=== PATIENT | female | born 1955 | race Caucasian/White ===

== ENCOUNTER 2022-12-02 09:48 | Outpatient (OUT) | payer MEDICARE, OTHER, SELFPAY ==
--- NOTE | 2022-12-02 | VEIN_ITS ---
Patient: MARLON PASCAL Exam Date: 12/02/2022 : 1955 Gender:F Ordering : DR DANIEL LAMBERT M.D. Admission #: [id number] Family : Order #: [id number] CLICK HERE TO VIEW EXAM RADIOLOGY REPORT PROCEDURE: VC EXT VENOUS REFLUX SOHAN LMTD COMPARISON: None. INDICATIONS: Pain due to varicose veins of bilateral legs I83.813 TECHNIQUE: Duplex imaging of the lower extremity to assess the deep and superficial venous system for the presence of deep or superficial venous incompetence and to document the location and severity of disease. The study includes evaluation of the great saphenous vein (GSV), anterior accessory saphenous vein (AASV) and small saphenous vein (SSV). Patient scanned in reverse Trendelenburg and standing. FINDINGS: RIGHT LOWER EXTREMITY: Saphenofemoral Junction Reflux: Yes 7.2mm 0.9 sec GSV: Diam (mm) Reflux/ Time (sec) Proximal Thigh 7.9 Yes 3.7 Mid Thigh 5.3 Yes 1.2 Distal Thigh 5.7 Yes 3.7 Prox Calf 3.5 Yes 2.2 Mid Calf 3.7 Yes 0.3 Saphenopopliteal Junction Reflux: 5.6mm Yes 2.2 SSV: Proximal Calf 5.7 Yes 1.0 Mid Calf 2.1 Yes 0.2 AASV: Not present Thrombi: No acute or chronic thrombus. Compressibility: Normal. Flow: Mild deep venous reflux. Financial Aid Counselor: Distal medial lower leg 5.5 mm, 3.4s reflux. Prox medial lower leg 4.1 mm, 3.3s reflux. Mid lateral lower leg 5.2 mm, 2.4s reflux. Tech Note: Right SSV becomes decompressed after approximately 10 cm from SPJ. Incompetent varicose vein mid medial thigh measures 5.1 mm with 0.5s reflux. Varicose vein proximal posterior calf measures 5.3 mm, 3.9s reflux. Mid medial lower leg varicosity measures 6.0 mm, 1.2s reflux. Mid anterior thigh varicose vein measures 4.9 mm, 2.7s reflux. Large varicosity arising from composition floor layer proximal/lateral lower leg measures 7.3 mm, 2.5s reflux. Varicose vein mid lateral thigh measures 7.6 mm, 2.3s reflux. LEFT LOWER EXTREMITY: Saphenofemoral Junction Reflux: Yes 8.4 mm 1.1 sec GSV: Diam (mm) Reflux/Time (sec) Proximal Thigh 10.6 Yes 0.8 Mid Thigh 4.8 Yes 0.5 Distal Thigh 4.9 Yes 1.2 Prox Calf 3.8 Yes 2.2 Mid Calf 2.3 No Saphenopopliteal Junction Relux: 2.4 mm No SSV: Proximal Calf 3.2 No Mid Calf 2.8 Yes 0.2 AASV: Not present Thrombi: No acute or chronic thrombus. Compressibility: Normal. Flow: Mild deep venous reflux. Financial Aid Counselor: Prox medial lower leg 4.7 mm, 1.6s reflux. Tech Note: Incompetent varicose vein medial knee measures 4.2 mm with 3.7s reflux. Medial mid lower leg varicose vein measures 6.4 mm with 3.8s reflux. Prox posterior calf varicose vein measures 4.2 mm with 3.6s reflux. Varicose vein distal lateral thigh measures 8.0 mm with 3.7s reflux. CONCLUSION: 1. Severe right and moderate left great saphenous vein venous insufficiency with associated dilatation and saphenofemoral junction reflux 2. Mild right small saphenous vein venous insufficiency with minimal dilatation 3. Bilateral incompetent perforating veins measuring up to 5.5 mm in the right and 4.7 mm on the left 4. Bilateral incompetent varicose veins 5. Mild bilateral deep vein reflux Dictated by: Daniel Lambert MD on 12/02/2022 at 11:37 Approved by: Daniel Lambert MD on 12/02/2022 at 11:40
--- NOTE | 2022-12-02 | VEIN_ITS ---
Patient: MARLON PASCAL Exam Date: 12/02/2022 : 1955 Gender:F Ordering : DR DANIEL LAMBERT M.D. Admission #: [id number] Family : Order #: [id number] CLICK HERE TO VIEW EXAM RADIOLOGY REPORT PROCEDURE: [facility] - OFFICE VISIT INITIAL COMPARISON: None. PROGRESS NOTES: 67-year-old female who presents with a 20 year history of lower extremity pain swelling and varicose veins. The patient's symptoms have significantly progressed in the last 2 years. The patient now reports that the right side is significantly worse than the left. Patient complains muscle cramping aching heavy feeling in the legs. The patient had a single episode active hemorrhage from a superficial ruptured vein which required suturing in the emergency room. The patient has not had an additional episode in the past several years. The patient's symptoms are exacerbated by prolonged sitting and standing and are relieved by rest, leg elevation, compression stockings and over the counter oral analgesics. Patient's symptoms do dramatically affect her activities of daily living as she is unable to exercise due to the leg pain. Patient does elevate her legs for several hours per day. The patient denies any signs and symptoms to suggest arterial ischemia. The patient describes a family history significant for varicose veins in her mother. Heart disease and congestive heart failure in her father. Schizophrenia in her mother. . Past medical history significant for diabetes for which she is on nose and thick, fibromyalgia, hypertension, gastroparesis, morbid obesity, obstructive sleep apnea, depressive disorder, aortic stenosis, reactive airways disease and shortness of breath. Patient has never smoked. The patient occasionally drinks alcohol. No illicit drug use. Medication list is on a separate report. No history of deep venous thrombus or pulmonary embolus. See separate history and physical for medication list. No prior treatment for varicose or spider veins. The patient has worn compression stockings for many years. After review of nurse notes, history and physical exam I discussed at length the pathophysiology of venous hypertension and possible treatments, therapies and strategies available. We discussed at length the importance of elevating the lower extremities above the level of the heart, increased physical activity and compression stocking use. We discussed alternatives including continued use of bilateral thigh-high compression stockings, surgical alternatives including ligation and stripping and phlebectomy. We discussed intravenous laser ablation, micro foam chemical ablation and injection sclerotherapy at length. Risks benefits and alternatives were discussed Ultrasound venous reflux study performed same day was discussed at length with the patient. The report demonstrates severe right and moderate left great saphenous vein venous insufficiency with associated dilatation period mild right small saphenous vein venous insufficiency. Bilateral incompetent perforating veins measuring up to 5.5 mm. Bilateral incompetent varicose veins. Mild bilateral deep vein reflux PHYSICAL EXAM: The right leg demonstrates moderate varicose reticular and spider veins. Most significant along the lateral thigh, knee and ankle. There is mild to moderate hemosiderin staining lower leg and ankle. Subcutaneous edema. No active ulceration. The left leg demonstrates moderate varicose reticular and spider veins. Most significant along the lateral thigh knee and ankle. There is mild to moderate hemosiderin staining lower leg and ankle. Subcutaneous edema. No active ulceration. Both thighs, legs and feet were symmetrically warm to the touch. Good posterior tibial and dorsalis pedis pulses were present bilaterally. VEIN/[facility] EST Comprehensive IMPRESSION: 1. Severe right, moderate left great saphenous vein, mild right small saphenous vein venous insufficiency with dilatation and junction reflux 2. Moderate to severe bilateral lower extremity varicose veins 3. Mild lower extremity subcutaneous edema 4. No definite flow significant arterial disease 5. CEAP: C4a, Ep, Asp, Pr PLAN: 1. Endovenous laser ablation right great saphenous vein followed by left great saphenous vein with subsequent we evaluation of the incompetent perforating veins 2. Bilateral micro foam chemical ablation of incompetent varicose veins 3. Continued use of bilateral thigh-high 20-30 mm compression stockings 4. Elevated legs and increased physical activity for symptomatic relief Nurse notes, history and physical were reviewed and confirmed, see attached forms. The nurse was present throughout the physical exam and consultation Dictated by: Daniel Lambert MD on 12/02/2022 at 12:27 Approved by: Daniel Lambert MD on 12/02/2022 at 12:34
== END 2022-12-02 09:49 | disposition home or self-care (01) ==
LOC: VC 09:49
PROVIDERS: PCP Radiology Diagnostic Radiology; Visit Provider Radiology Diagnostic Radiology
DX: I83.813 Varicose veins of bilateral lower extremities with pain (principal)
CPT/HCPCS: 93970; G0463

== ENCOUNTER 2022-12-18 08:24 | Outpatient (OUT) | payer MEDICARE, OTHER, SELFPAY ==
--- NOTE | 2022-12-18 08:27 | VEIN_ITS ---
[address] [address] Patient Name: MARLON PASCAL MRN: [id number] date: 1955 Sex: F Assigned Patient Location: Current Patient Location: Accession/Order Number: [id number] Exam Date: 12/18/2022 08:30 Report Date: 12/18/2022 09:45 At the request of: AMY VU Procedure: VC Endovenous Ablation 1VeinRT EXAMINATION: VC Endovenous Ablation 1VeinRT HISTORY: I83.813 Pain due to varicose veins of bilateral legs The risks and benefits of the procedure had been previously discussed, and were rediscussed at length. Informed written consent was obtained. Choco Choi RN and Sonia Montenegro RDMS assisted. Time out procedure was performed. The right lower extremity was prepared and draped in the usual sterile fashion to allow knee flexion in the sterile field. Duplex ultrasound probe was draped in a sterile cover, sterile transmission gel was used. Venous mapping was performed with the areas of dilation and large tributaries marked. The total length was 36 cm from the entry upper calf to 3 cm below the saphenofemoral junction. The diameter of the greater saphenous vein ranged from 11 mm. A 30 gauge needle and 1% buffered lidocaine was used to anesthetize the entry site. A 4 mm incision was made with a scalpel and the saphenous vein was entered percutaneously under direct ultrasound guidance with a micropuncture set, a single stick was successful in gaining access. A micro-guide wire was inserted and the needle removed. A micro-set including a dilator was inserted over the microwire and the needle and dilator were removed. A guide wire was inserted through the micro-set and guided through the saphenous vein to the saphenofemoral junction. The dilator was removed and an introducer sheath was inserted over the wire until the end of the sheath entered the saphenofemoral junction. The dilator and wire were removed and the 600 micron fiber was introduced and placed and positioned so that it extended beyond the sheath and was 3 cm distal to the saphenofemoral femoral junction. Final position of the fiber was determined by ultrasound guidance and duplex imaging. Tumescent anesthetic was delivered by ultrasound guidance. 275 cc of fluid was delivered along the entire course of the saphenous vein. The solution consisted of 1000 cc of normal saline with 40 mL of 1% lidocaine and 20 mL of sodium bicarbonate. A final positioning check was made. The energy source was turned on by means of the foot pedal and the fiber and sheath were withdrawn. The total number of Joules delivered was 2244. The laser was active for twin A 80seconds under continuous pulse, average laser use of 8 J. Laser start time 9:27 AM, 12/18/2022. Laser stop time 9:34 AM, 12/18/2022. A duplex ultrasound revealed compressibility and flow at the saphenofemoral junction immediately after the procedure. Hemostasis at the access site was achieved. The skin incision of the saphenous vein was closed with a 4 x 4. A compression stocking was applied. Postop instructions were given. A follow up appointment was recommended and scheduled. The patient tolerated the procedure well. Electronically authenticated by: TI VALLEJO Date: 12/18/2022 09:45
[2022-12-18] MEDS: 0.9 % SODIUM CHLORIDE 500 ML, LIDOCAINE HCL 20 ML, SODIUM BICARBONATE 10 MEQ INJ (08:59)
[2022-12-18] MEDS: LIDOCAINE HCL 10 ML, SODIUM BICARBONATE 1 MEQ INJ (09:00)
== END 2022-12-18 08:25 | disposition home or self-care (01) ==
LOC: VC 08:24
PROVIDERS: PCP Radiology Diagnostic Radiology; Visit Provider Radiology Diagnostic Radiology
DX: I83.813 Varicose veins of bilateral lower extremities with pain (principal)
CPT/HCPCS: 36478

== ENCOUNTER 2022-12-23 09:26 | Outpatient (OUT) | payer MEDICARE, OTHER, SELFPAY ==
--- NOTE | 2022-12-23 09:27 | VEIN_ITS ---
Patient: MARLON PASCAL Exam Date: 12/23/2022 : 1955 Gender:F Ordering : DR DANIEL LAMBERT M.D. Admission #: [id number] Family : Order #: [id number] CLICK HERE TO VIEW EXAM RADIOLOGY REPORT PROCEDURE: VC EXT VENOUS RT LMTD COMPARISON: None. INDICATIONS: I80.01 Phlebitis of superficial veins of rt lower extremity TECHNIQUE: Lower extremity senior scale and Duplex Doppler evaluation of the deep venous system from the inguinal ligament through the calf veins. FINDINGS: REGION: Right lower extremity. THROMBI: Negative for DVT. Heat induced thrombus 1.9 cm from the SFJ. The thrombus extends from groin to proximal calf. COMPRESSIBILITY: Non-compressible segments. FLOW: Areas of no flow. CONCLUSION: Post ablation occlusion of the right great saphenous vein with heat induced thrombus 1.9 cm from the saphenofemoral junction Dictated by: Daniel Lambert MD on 12/23/2022 at 10:07 Approved by: Daniel Lambert MD on 12/23/2022 at 10:18
--- NOTE | 2022-12-23 09:27 | VEIN_ITS ---
Patient: MARLON PASCAL Exam Date: 12/23/2022 : 1955 Gender:F Ordering : DR DANIEL LAMBERT M.D. Admission #: [id number] Family : Order #: [id number] CLICK HERE TO VIEW EXAM RADIOLOGY REPORT PROCEDURE: [facility] EST LMTD VEIN CENTER - OFFICE VISIT FOLLOW UP COMPARISON: None. PROGRESS NOTES: The patient had no problems following intravenous laser ablation of the right great saphenous vein. The patient did not require oral analgesics. The patient did wear her compression stocking. The patient has followed our recommendations to walk 20-30 minutes once or twice per day since the procedure. Physical exam demonstrates thrombosed right great saphenous vein which can be easily palpated. Some mild bruising identified along the distal medial right thigh. No area of erythema or warmth to suggest cellulitis or thrombophlebitis. No active ulceration Review of the ultrasound performed the same day demonstrates occlusive thrombus extending throughout the treated right great saphenous vein with heat induced thrombus 1.9 cm in the saphenofemoral junction. The patient expressed a desire to proceed with treatment of incompetent left great saphenous vein. VEIN/[facility] Facility EST LMTD IMPRESSION: 1. Successful ablation of the right great saphenous vein. 2. Persistent incompetent left great saphenous vein. PLAN: Intravenous laser ablation left great saphenous vein Nurse notes, history and physical were reviewed and confirmed, see attached forms. The nurse was present throughout the physical exam and consultation Dictated by: Daniel Lambert MD on 12/23/2022 at 10:25 Approved by: Daniel Lambert MD on 12/23/2022 at 10:33
== END 2022-12-23 09:27 | disposition home or self-care (01) ==
LOC: VC 09:26
PROVIDERS: PCP Radiology Diagnostic Radiology; Visit Provider Radiology Diagnostic Radiology
DX: I80.01 Phlebitis and thrombophlebitis of superficial vessels of right lower extremity (principal)
CPT/HCPCS: 93971; G0463

== ENCOUNTER 2023-01-22 07:50 | Outpatient (OUT) | payer MEDICARE, OTHER, SELFPAY ==
--- NOTE | 2023-01-22 | VEIN_ITS ---
[address] [address] Patient Name: MARLON PASCAL MRN: [id number] date: 1955 Sex: F Assigned Patient Location: Current Patient Location: Accession/Order Number: [id number] Exam Date: 01/22/2023 07:56 Report Date: 01/22/2023 10:16 At the request of: AMY VU Procedure: VC Endovenous Ablation 1VeinLT EXAMINATION: VC Endovenous Ablation 1Vein left great saphenous vein HISTORY: Pain due to varicose veins of bilateral legs I83.813 COMPARISON: No relevant comparison available. TECHNIQUE: The risks and benefits of the procedure had been previously discussed, and were rediscussed at length. Informed written consent was obtained. Tonia and Choco Choi assisted. Time out procedure was performed. The left lower extremity was prepared and draped in the usual sterile fashion to allow knee flexion in the sterile field. Duplex ultrasound probe was draped in a sterile cover, sterile transmission gel was used. Venous mapping was performed with the areas of dilation and large tributaries marked. The total length was 37 cm from the entry upper calf to 3 cm below the saphenofemoral junction. The diameter of the greater saphenous vein ranged from 3-11 mm. A 30 gauge needle and 1% buffered lidocaine was used to anesthetize the entry site. A 4 mm incision was made with a scalpel and the saphenous vein was entered percutaneously under direct ultrasound guidance with a micropuncture set, a single stick was successful in gaining access. A micro-guide wire was inserted and the needle removed. A micro-set including a dilator was inserted over the microwire and the needle and dilator were removed. A 0.018 guide wire was inserted through the micro-set and threaded through the saphenous vein to the saphenofemoral junction. The dilator was removed and an introducer sheath was inserted over the wire until the end of the sheath entered the saphenofemoral junction. The dilator and wire were removed and the 600 micron fiber was introduced and placed and positioned so that it extended beyond the sheath and was 3 cm peripheral to the saphenofemoral femoral junction. Final position of the fiber was determined by ultrasound guidance and duplex imaging. Tumescent anesthetic was delivered by ultrasound guidance. 300 cc of fluid was delivered along the entire course of the saphenous vein. The solution consisted of 1000 cc of normal saline with 40 mL of 1% lidocaine and 20 mL of sodium bicarbonate. A final positioning check was made. The energy source was turned on by means of the foot pedal and the fiber and sheath were withdrawn. The total number of Joules delivered was 1771. The laser was active for 221 seconds under continuous pulse, average laser use of 8 J. Laser start time 8:39 am 01/22/23 . Laser stop time 8:44 am 01/22/23 . A duplex ultrasound revealed compressibility and flow at the saphenofemoral junction immediately after the procedure. Hemostasis at the access site was achieved. The skin incision of the saphenous vein was closed with a 4 x 4. A compression stocking was applied. Postop instructions were given. A follow up appointment was recommended and scheduled. The patient tolerated the procedure well and was discharged in good condition . VEIN/VC Endovenous Ablation 1VeinLT IMPRESSION: Technically successful endovenous laser ablation of the left great saphenous vein Electronically authenticated by: AMY VU Date: 01/22/2023 10:16
[2023-01-22] MEDS: 0.9 % SODIUM CHLORIDE 500 ML, LIDOCAINE HCL 20 ML, SODIUM BICARBONATE 10 MEQ INJ (08:08)
[2023-01-22] MEDS: LIDOCAINE HCL 10 ML, SODIUM BICARBONATE 1 MEQ INJ (08:10)
== END 2023-01-22 07:51 | disposition home or self-care (01) ==
LOC: VC 07:50
PROVIDERS: PCP Radiology Diagnostic Radiology; Visit Provider Radiology Diagnostic Radiology
DX: I83.813 Varicose veins of bilateral lower extremities with pain (principal)
CPT/HCPCS: 36478

== ENCOUNTER 2023-01-27 13:17 | Outpatient (OUT) | payer MEDICARE, OTHER, SELFPAY ==
--- NOTE | 2023-01-27 13:33 | VEIN_ITS ---
Patient: MARLON PASCAL Exam Date: 01/27/2023 : 1955 Gender:F Ordering : DR AMY VU M.D. Admission #: [id number] Family : Order #: [id number] CLICK HERE TO VIEW EXAM CORRECTION Corrected on: 01/27/2023; RADIOLOGY REPORT PROCEDURE: [facility] EST LMTD VEIN CENTER - OFFICE VISIT FOLLOW UP COMPARISON: [facility] EST TD, 12/23/2022. PROGRESS NOTES: The patient reports improvement in leg symptoms. There has been interval reduction in varicosities. The patient has followed our recommendations to walk 20-30 minutes once or twice per day since the procedure. Physical exam demonstrates decrease in varicosities of the leg. Persistent varicosities are identified along the legs bilaterally. Review of the ultrasound performed the same day demonstrates occlusive thrombus extending throughout the treated vein(s), see separate report, consistent with a successful ablation. No thrombus extending into or beyond the saphenofemoral junction. The patient expressed a desire to proceed with treatment of remaining incompetent branch saphenous varicosities. The patient was informed that treatment was a process and would require several procedures/sessions. VEIN/[facility] EST LMTD IMPRESSION: 1. Successful ablation of the left great saphenous vein(s). 2. Persistent dilated and incompetent branch saphenous veins and lower extremity symptoms. PLAN: 1. Microfoam chemical ablation of incompetent branch saphenous varicosities within the right leg. Nurse notes, history and physical were reviewed and confirmed, see attached forms. The nurse was present throughout the physical exam and consultation Dictated by: Edin Garrido M.D. on 01/27/2023 at 14:37 Approved by: Edin Garrido M.D. on 01/27/2023 at 14:41
--- NOTE | 2023-01-27 13:33 | VEIN_ITS ---
Patient: MARLON PASCAL Exam Date: 01/27/2023 : 1955 Gender:F Ordering : DR AMY VU M.D. Admission #: [id number] Family : Order #: [id number] CLICK HERE TO VIEW EXAM CORRECTION Corrected on: 01/27/2023; RADIOLOGY REPORT PROCEDURE: VC EXT VENOUS LT LIMITED COMPARISON: None. INDICATIONS: I80.02 Phlebitis of superficial veins of lt lower extremity TECHNIQUE: Lower extremity senior scale and Duplex Doppler evaluation of the deep venous system from the inguinal ligament through the calf veins. FINDINGS: REGION: Left lower extremity. THROMBI: Negative for DVT. Heat induced thrombus in left GSV 2.3 cm from SFJ and extends to proximal calf. COMPRESSIBILITY: Non-compressible segments. FLOW: Areas of no flow. 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 Mid lateral lower leg perf measures 4.5mm with 4.6s reflux. CONCLUSION: 1. Successful post ablation occlusion of left great saphenous vein. Dictated by: Edin Garrido M.D. on 01/27/2023 at 14:41 Approved by: Edin Garrido M.D. on 01/27/2023 at 14:42
== END 2023-01-27 13:18 | disposition home or self-care (01) ==
LOC: VC 13:31
PROVIDERS: PCP Radiology Diagnostic Radiology; Visit Provider Radiology Diagnostic Radiology
DX: I80.02 Phlebitis and thrombophlebitis of superficial vessels of left lower extremity (principal)
CPT/HCPCS: 93971; G0463

== ENCOUNTER 2023-02-17 08:32 | Outpatient (OUT) | payer MEDICARE, OTHER, SELFPAY ==
--- NOTE | 2023-02-17 | VEIN_ITS ---
[address] [address] Patient Name: MARLON PASCAL MRN: [id number] date: 1955 Sex: F Assigned Patient Location: Current Patient Location: Accession/Order Number: [id number] Exam Date: 02/17/2023 08:50 Report Date: 02/17/2023 10:54 At the request of: AMY VU Procedure: VC INJ Foam Sclerosant WUS ASSEMBLER AIRCRAFT POWER PLANT PROCEDURE: VC INJ Foam Sclerosant WUS ASSEMBLER AIRCRAFT POWER PLANT COMPARISON: None. HISTORY: Pain due to varicose veins of bilateral legs I83.813 Pre-operative Diagnosis: CEAP class C4a venous insufficiency with pain, tenderness, edema and incompetent right great saphenous vein and dilated incompetent varicose veins, chronic venous insufficiency right leg secondary to venous incompetence Post-operative Diagnosis: CEAP class C4a venous insufficiency with pain, tenderness, edema and incompetent right great saphenous vein and dilated incompetent varicose veins, chronic venous insufficiency right leg secondary to venous incompetence Procedure Performed: 1. Ultrasound-guided microfoam chemical ablation with Varithenaregistered 2. Intraoperative ultrasound guidance Anesthesia: None Indications for Procedure: 67-year-old female who presents with a 20 year history of lower extremity pain and swelling and muscle cramping traumatically affecting her activities of daily living. The patient failed conservative medical therapy including medical compression stockings, exercise and analgesics. Prior procedures include . Multiple incompetent varicosities of the right leg. Duplex scan showed reflux and enlarged diameters up to 8 mm. The patient underwent informed consent including management options where the complications of infection, bleeding, pain, and skin injury were discussed. Particular attention was spent discussing thrombus extension and deep vein thrombosis as well as the possibility of pulmonary embolus and treatment with oral or injectable blood thinners. Procedure: The patient walked to the procedure room. All applicable staff donned appropriate apparel. A procedure timeout was performed to confirm correct patient, correct extremity, correct procedure, and correct room set-up including presence of all applicable supplies, devices, and drugs. A duplex ultrasound, performed by myself confirmed the location and incompetence of branch saphenous varicosities and their course was marked on the skin together with the dilated tributaries. The extent of treatment of the vein and the associated varicosities was determined through ultrasound mapping. The skin was prepped and then punctured with a butterfly needle and advanced under ultrasound guidance. The Varithenaregistered canister was activated and the canister was primed and purged as required in the instructions for use. Varithenaregistered was drawn into a sterile syringe. The following injections were made: 6 cc injected into a 5 mm varicose vein distal medial right ankle 9 cc injected into a 8 mm varicose vein lateral proximal right lower leg Varithenaregistered was slowly administered at 0.5-1.0 cc/second with close observation by ultrasound of its course in the vessels. Total volume utilized was 18 cc . Following administration of Varithenaregistered the leg was elevated and the patient was asked to repeatedly dorsiflex the ankle to limit flow of Varithenaregistered into perforating veins. Once appropriate spasm had been confirmed in the treated veins, the vascular catheter was removed from the leg and light pressure was applied over the puncture site for hemostasis. The common femoral and deep superficial veins were then evaluated for flow and compressibility prior to dressing placement. The lower extremity was kept elevated at 45 degrees above the horizontal and cording material was applied over the saphenous segments and tributaries to allow for eccentric compression over the target vessels including the targeted saphenous vein(s). A multilayer dressing was applied consisting of foam pads, coban and thigh-high 20-30 mm Hg compression elastic support hose were placed on the patient. The leg was lowered only after compression had been applied and the patient was immediately ambulatory. The patient ambulated 10 minutes under supervision and was without apparent concerns at time of release. Post-care instructions include advising patient to keep post-treatment bandages in place and dry for 48 hours, avoid extended periods of inactivity, avoid heavy exercise for one week, wear compression stockings on the treated leg continuously for two weeks, to walk daily for 10 minutes over the next month. The patient was instructed to take an anti-inflammatory medicine as needed and to follow up for color duplex scan of the Saphenous veins, the treated branch saphenous varicosities, the adjacent deep veins, and additional treatment within 7 days. PERSONNEL: Choco Choi RN Electronically authenticated by: AMY VU Date: 02/17/2023 10:54
== END 2023-02-17 08:33 | disposition home or self-care (01) ==
LOC: VC 08:32
PROVIDERS: PCP Radiology Diagnostic Radiology; Visit Provider Radiology Diagnostic Radiology
DX: I83.813 Varicose veins of bilateral lower extremities with pain (principal)
CPT/HCPCS: 36466

== ENCOUNTER 2023-02-24 07:49 | Outpatient (OUT) | payer MEDICARE, OTHER, SELFPAY ==
--- NOTE | 2023-02-24 07:52 | VEIN_ITS ---
Patient: MARLON PASCAL Exam Date: 02/24/2023 : 1955 Gender:F Ordering : DR DANIEL LAMBERT M.D. Admission #: [id number] Family : Order #: [id number] CLICK HERE TO VIEW EXAM RADIOLOGY REPORT PROCEDURE: FACILITY EST LMTD VEIN CENTER - OFFICE VISIT FOLLOW UP COMPARISON: FACILITY EST LMTD, 01/27/2023. FACILITY EST LMTD, 12/23/2022. PROGRESS NOTES: The patient reports no significant visual was following micro foam chemical ablation of the right leg. The patient did not require oral analgesics. The patient has worn her compression stockings. The patient has followed our recommendations to walk 20-30 minutes once or twice per day since the procedure. Physical exam demonstrates multiple thrombosed varicose veins. Multiple patent incompetent varicose veins remain Review of the ultrasound performed the same day demonstrates occlusive thrombus extending throughout the treated right leg incompetent varicose veins with residual incompetent patent varicose veins observed. The patient expressed a desire to proceed with treatment of incompetent left leg varicose veins. VEIN/ Facility EST LMTD IMPRESSION: 1. Successful ablation of right leg incompetent varicose veins 2. Persistent bilateral leg incompetent varicose veins. PLAN: Micro foam chemical ablation of left leg incompetent varicose veins Nurse notes, history and physical were reviewed and confirmed, see attached forms. The nurse was present throughout the physical exam and consultation Dictated by: Daniel Lambert MD on 02/24/2023 at 09:06 Approved by: Daniel Lambert MD on 02/24/2023 at 09:08
--- NOTE | 2023-02-24 07:52 | VEIN_ITS ---
Patient: MARLON PASCAL Exam Date: 02/24/2023 : 1955 Gender:F Ordering : DR DANIEL LAMBERT M.D. Admission #: [id number] Family : Order #: [id number] CLICK HERE TO VIEW EXAM RADIOLOGY REPORT PROCEDURE: VC EXT VENOUS RT LMTD COMPARISON: VC EXT VENOUS RT LMTD, 12/23/2022. INDICATIONS: I80.01 Phlebitis of superficial veins of rt lower extremity TECHNIQUE: Lower extremity senior scale and Duplex Doppler evaluation of the deep venous system from the inguinal ligament through the calf veins. FINDINGS: REGION: Right lower extremity. THROMBI: Negative for DVT. Varithena induced thrombus visualized at prox/lat calf and dist/med calf. COMPRESSIBILITY: Non-compressible segments corresponding to thrombus. FLOW: Absent flow corresponding to thrombus OTHER: Multiple varicose veins remain. CONCLUSION: Post ablation occlusion of treated varicose veins with multiple residual incompetent patent varicose veins remaining Dictated by: Daniel Lambert MD on 02/24/2023 at 08:05 Approved by: Daniel Lambert MD on 02/24/2023 at 08:52
== END 2023-02-24 07:50 | disposition home or self-care (01) ==
LOC: VC 07:49
PROVIDERS: PCP Radiology Diagnostic Radiology; Visit Provider Radiology Diagnostic Radiology
DX: I80.01 Phlebitis and thrombophlebitis of superficial vessels of right lower extremity (principal)
CPT/HCPCS: 93971; G0463

== ENCOUNTER 2023-03-10 08:54 | Outpatient (OUT) | payer MEDICARE, OTHER, SELFPAY ==
--- NOTE | 2023-03-10 08:58 | VEIN_ITS ---
[address] [address] Patient Name: MARLON PASCAL MRN: [id number] date: 1955 Sex: F Assigned Patient Location: Current Patient Location: Accession/Order Number: [id number] Exam Date: 03/10/2023 09:02 Report Date: 03/10/2023 10:31 At the request of: AMY VU Procedure: VC INJ Foam Sclerosant WUS CHOP SAW OPERATOR PROCEDURE: VC INJ Foam Sclerosant WUS CHOP SAW OPERATOR COMPARISON: None. HISTORY: Pain due to varicose veins of bilateral legs I83.813 Pre-operative Diagnosis: CEAP class C4a venous insufficiency with pain, tenderness, edema and incompetent greater saphenous vein and incompetent varicose veins, chronic venous insufficiency left leg secondary to venous incompetence Post-operative Diagnosis: CEAP class C4a venous insufficiency with pain, tenderness, edema and incompetent greater saphenous vein and incompetent varicose veins, chronic venous insufficiency left leg secondary to venous incompetence Procedure Performed: 1. Ultrasound-guided microfoam chemical ablation with Varithenaregistered 2. Intraoperative ultrasound guidance Anesthesia: None Indications for Procedure: 67-year-old female who presents with a 20 year history of lower extremity pain and swelling and varicose veins. The patient failed conservative medical therapy including medical compression stockings, exercise and analgesics. Prior procedures include . Multiple incompetent varicosities of the left leg. Duplex scan showed reflux and enlarged diameters up to 7 mm. The patient underwent informed consent including management options where the complications of infection, bleeding, pain, and skin injury were discussed. Particular attention was spent discussing thrombus extension and deep vein thrombosis as well as the possibility of pulmonary embolus and treatment with oral or injectable blood thinners. Procedure: The patient walked to the procedure room. All applicable staff donned appropriate apparel. A procedure timeout was performed to confirm correct patient, correct extremity, correct procedure, and correct room set-up including presence of all applicable supplies, devices, and drugs. A duplex ultrasound, performed by myself confirmed the location and incompetence of branch saphenous varicosities and their course was marked on the skin together with the dilated tributaries. The extent of treatment of the vein and the associated varicosities was determined through ultrasound mapping. The skin was prepped and then punctured with a butterfly needle and advanced under ultrasound guidance. The Varithenaregistered canister was activated and the canister was primed and purged as required in the instructions for use. Varithenaregistered was drawn into a sterile syringe. Following injections were made: 7 cc injected into a 6 mm varicose vein distal medial left lower leg just above the ankle 8 cc injected into a 7 mm varicose vein proximal medial left lower leg Varithenaregistered was slowly administered at 0.5-1.0 cc/second with close observation by ultrasound of its course in the vessels. Total volume utilized was: . Following administration of Varithenaregistered the leg was elevated and the patient was asked to repeatedly dorsiflex the ankle to limit flow of Varithenaregistered into perforating veins. Once appropriate spasm had been confirmed in the treated veins, the vascular catheter was removed from the leg and light pressure was applied over the puncture site for hemostasis. The common femoral and deep superficial veins were then evaluated for flow and compressibility prior to dressing placement. The lower extremity was kept elevated at 45 degrees above the horizontal and cording material was applied over the saphenous segments and tributaries to allow for eccentric compression over the target vessels including the targeted saphenous vein(s). A multilayer dressing was applied consisting of foam pads, coban and thigh-high 20-30 mm Hg compression elastic support hose were placed on the patient. The leg was lowered only after compression had been applied and the patient was immediately ambulatory. The patient ambulated 10 minutes under supervision and was without apparent concerns at time of release. Post-care instructions include advising patient to keep post-treatment bandages in place and dry for 48 hours, avoid extended periods of inactivity, avoid heavy exercise for one week, wear compression stockings on the treated leg continuously for two weeks, to walk daily for 10 minutes over the next month. The patient was instructed to take an anti-inflammatory medicine as needed and to follow up for color duplex scan of the Saphenous veins, the treated branch saphenous varicosities, the adjacent deep veins, and additional treatment within 7 days. PERSONNEL: Choco Choi RN Electronically authenticated by: AMY VU Date: 03/10/2023 10:31
== END 2023-03-10 08:55 | disposition home or self-care (01) ==
LOC: VC 08:54
PROVIDERS: PCP Radiology Diagnostic Radiology; Visit Provider Radiology Diagnostic Radiology
DX: I83.813 Varicose veins of bilateral lower extremities with pain (principal)
CPT/HCPCS: 36466

== ENCOUNTER 2023-03-17 07:25 | Outpatient (OUT) | payer MEDICARE, OTHER, SELFPAY ==
--- NOTE | 2023-03-17 | VEIN_ITS ---
Patient: MARLON PASCAL Exam Date: 03/17/2023 : 1955 Gender:F Ordering : DR DANIEL LAMBERT M.D. Admission #: [id number] Family : Order #: [id number] CLICK HERE TO VIEW EXAM RADIOLOGY REPORT PROCEDURE: FACILITY EST LMTD VEIN CENTER - OFFICE VISIT FOLLOW UP COMPARISON: FACILITY EST LMTD, 02/24/2023. FACILITY EST LMTD, 01/27/2023. PROGRESS NOTES: The patient reports no significant problems following micro foam chemical ablation of left leg incompetent varicose veins. The patient did not require oral analgesics. The patient has worn her compression stockings for the patient's exercise to the best of her ability. Physical exam demonstrates multiple thrombosed varicose veins. Large incompetent varicose veins are observed along the patient's lateral thigh knee and lower leg. No areas of erythema or warmth to suggest cellulitis or thrombophlebitis. No active ulceration. Review of the ultrasound performed the same day demonstrates occlusive thrombus extending throughout the treated left leg incompetent varicose veins. A 2.6 cm segment of deep vein thrombus is identified in a single left posterior tibial vein. This was discussed with the patient and no treatment was recommended. We will follow-up with this at her next appointment. Residual bilateral incompetent varicose veins are observed. The patient expressed a desire to proceed with treatment of right leg incompetent varicose veins with micro foam chemical ablation. VEIN/ Facility EST LMTD IMPRESSION: 1. Successful ablation of incompetent left leg varicose veins 2. Persistent bilateral incompetent varicose veins. PLAN: Micro foam chemical ablation right leg incompetent varicose veins Nurse notes, history and physical were reviewed and confirmed, see attached forms. The nurse was present throughout the physical exam and consultation Dictated by: Daniel Lambert MD on 03/17/2023 at 08:02 Approved by: Daniel Lambert MD on 03/17/2023 at 08:04
--- NOTE | 2023-03-17 | VEIN_ITS ---
Patient: MARLON PASCAL Exam Date: 03/17/2023 : 1955 Gender:F Ordering : DR DANIEL LAMBERT M.D. Admission #: [id number] Family : Order #: [id number] CLICK HERE TO VIEW EXAM RADIOLOGY REPORT PROCEDURE: VC EXT VENOUS LT LIMITED COMPARISON: VC EXT VENOUS LT LIMITED, 01/27/2023. INDICATIONS: Phlebitis of superficial veins of lt lower extremity I80.02 TECHNIQUE: Lower extremity senior scale and Duplex Doppler evaluation of the deep venous system from the inguinal ligament through the calf veins. FINDINGS: REGION: Left lower extremity. THROMBI: Positive for DVT. Chemically induced thrombus in varicose veins medial left leg. Thrombus extends from rehabilitation attendant into PTV in a 2.6 cm segment. COMPRESSIBILITY: Non-compressible segments corresponding to throb. FLOW: Absent flow corresponding thrombus OTHER: Patent varicose vein lateral thigh remains 5.9 mm. CONCLUSION: 1. Post ablation occlusion of treated varicose veins 2. 2.6 cm segment deep vein thrombus in a single posterior tibial vein in the region of a rehabilitation attendant vein Dictated by: Daniel Lambert MD on 03/17/2023 at 07:49 Approved by: Daniel Lambert MD on 03/17/2023 at 07:51
== END 2023-03-17 07:26 | disposition home or self-care (01) ==
LOC: VC 07:25
PROVIDERS: PCP Radiology Diagnostic Radiology; Visit Provider Radiology Diagnostic Radiology
DX: I80.02 Phlebitis and thrombophlebitis of superficial vessels of left lower extremity (principal)
CPT/HCPCS: 93971; G0463

== ENCOUNTER 2023-03-31 08:54 | Outpatient (OUT) | payer MEDICARE, OTHER, SELFPAY ==
--- NOTE | 2023-03-31 | VEIN_ITS ---
[address] [address] Patient Name: MARLON PASCAL MRN: [id number] date: 1955 Sex: F Assigned Patient Location: Current Patient Location: Accession/Order Number: [id number] Exam Date: 03/31/2023 09:00 Report Date: 03/31/2023 10:11 At the request of: AMY VU Procedure: VC INJ Foam Sclerosant WUS PETROLEUM ENGINEER PROCEDURE: VC INJ Foam Sclerosant WUS PETROLEUM ENGINEER HISTORY: Painful Varicose Veins 183.813 Pre-operative Diagnosis: CEAP class C4 a venous insufficiency with pain, tenderness, edema and incompetent branch saphenous vein(s), chronic venous insufficiency right leg secondary to venous incompetence Post-operative Diagnosis: CEAP class C4 a venous insufficiency with pain, tenderness, edema and incompetent branch saphenous vein(s), chronic venous insufficiency right leg secondary to venous incompetence Procedure Performed: 1. Ultrasound-guided microfoam chemical ablation with Varithenaregistered 2. Intraoperative ultrasound guidance Physician: Edin Garrido M.D. Anesthesia: None Indications for Procedure: 68 year old female. Symptoms including dilated bulging veins, lower extremity pain and swelling for many years despite conservative medical therapy including medical compression stockings, exercise and analgesics. Prior procedures include endovenous laser ablation and microfoam chemical ablation. Multiple incompetent varicosities of the right leg. Duplex scan showed reflux and enlarged diameters up to 8 mm. The patient underwent informed consent including management options where the complications of infection, bleeding, pain, and skin injury were discussed. Particular attention was spent discussing thrombus extension and deep vein thrombosis as well as the possibility of pulmonary embolus and treatment with oral or injectable blood thinners. Procedure: The patient walked to the procedure room. All applicable staff donned appropriate apparel. A procedure timeout was performed to confirm correct patient, correct extremity, correct procedure, and correct room set-up including presence of all applicable supplies, devices, and drugs. A duplex ultrasound, performed by myself confirmed the location and incompetence of branch saphenous varicosities and their course was marked on the skin together with the dilated tributaries. The extent of treatment of the vein and the associated varicosities was determined through ultrasound mapping. The skin was prepped and then punctured with a butterfly needle and advanced under ultrasound guidance. The Varithenaregistered canister was activated and the canister was primed and purged as required in the instructions for use. Varithenaregistered was drawn into a sterile syringe. Varithenaregistered was slowly administered at 0.5-1.0 cc/second with close observation by ultrasound of its course in the vessels. Total volume utilized was: 15 mL (7 mL injury 4 mm varicosity of the mid anterior lateral lower right leg; 8 mL into an 8 mm varicosity of the distal lateral upper right leg). Following administration of Varithenaregistered the leg was elevated and the patient was asked to repeatedly dorsiflex the ankle to limit flow of Varithenaregistered into perforating veins. Once appropriate spasm had been confirmed in the treated veins, the vascular catheter was removed from the leg and light pressure was applied over the puncture site for hemostasis. The common femoral and deep superficial veins were then evaluated for flow and compressibility prior to dressing placement. The lower extremity was kept elevated at 45 degrees above the horizontal and cording material was applied over the saphenous segments and tributaries to allow for eccentric compression over the target vessels including the targeted saphenous vein(s). A multilayer dressing was applied consisting of foam pads, coban and thigh-high 20-30 mm Hg compression elastic support hose were placed on the patient. The leg was lowered only after compression had been applied and the patient was immediately ambulatory. The patient ambulated 10 minutes under supervision and was without apparent concerns at time of release. Post-care instructions include advising patient to keep post-treatment bandages in place and dry for 48 hours, avoid extended periods of inactivity, avoid heavy exercise for one week, wear compression stockings on the treated leg continuously for two weeks, to walk daily for 10 minutes over the next month. The patient was instructed to take an anti-inflammatory medicine as needed and to follow up for color duplex scan of the Saphenous veins, the treated branch saphenous varicosities, the adjacent deep veins, and additional treatment within 7 days. PERSONNEL: Choco Choi RN Electronically authenticated by: EDIN GARRIDO Date: 03/31/2023 10:11
== END 2023-03-31 08:55 | disposition home or self-care (01) ==
LOC: VC 08:54
PROVIDERS: PCP Radiology Diagnostic Radiology; Visit Provider Radiology Diagnostic Radiology
DX: I83.813 Varicose veins of bilateral lower extremities with pain (principal)
CPT/HCPCS: 36466

== ENCOUNTER 2023-04-07 07:58 | Outpatient (OUT) | payer MEDICARE, OTHER, SELFPAY ==
--- NOTE | 2023-04-07 07:59 | VEIN_ITS ---
Patient: MARLON PASCAL Exam Date: 04/07/2023 : 1955 Gender:F Ordering : DR AMY VU M.D. Admission #: [id number] Family : Order #: [id number] CLICK HERE TO VIEW EXAM RADIOLOGY REPORT PROCEDURE: VC FACILITY EST LMTD VEIN CENTER - OFFICE VISIT FOLLOW UP COMPARISON: VC EXT VENOUS SOHAN LIMITED, 04/07/2023. VC FACILITY EST LMTD, 03/17/2023. PROGRESS NOTES: The patient reports improvement in leg symptoms. There has been interval reduction in varicosities. The patient has followed our recommendations to walk 20-30 minutes once or twice per day since the procedure. Physical exam demonstrates decrease in varicosities of the leg. Persistent varicosities are identified along the left leg. Review of the ultrasound performed the same day demonstrates occlusive thrombus extending throughout the treated vein(s), see separate report, consistent with a successful ablation. No thrombus extending into or beyond the saphenofemoral junction. No remaining treatable varicosities within right leg. The patient expressed a desire to proceed with treatment of remaining incompetent branch saphenous varicosities. The patient was informed that treatment was a process and would require 1-2 procedures/sessions. VEIN/ Facility EST LMTD IMPRESSION: 1. Successful ablation of the treated right leg branch saphenous vein(s). 2. No remaining treatable branch saphenous varicosities within right leg. 3. Persistent left lower extremity incompetent branch saphenous veins and lower extremity symptoms. PLAN: Microfoam chemical ablation of left leg incompetent branch saphenous varicosities. Nurse notes, history and physical were reviewed and confirmed, see attached forms. The nurse was present throughout the physical exam and consultation Dictated by: Edin Garrido M.D. on 04/07/2023 at 09:39 Approved by: Edin Garrido M.D. on 04/07/2023 at 09:42
--- NOTE | 2023-04-07 08:00 | VEIN_ITS ---
Patient: MARLON PASCAL Exam Date: 04/07/2023 : 1955 Gender:F Ordering : DR AMY VU M.D. Admission #: [id number] Family : Order #: [id number] CLICK HERE TO VIEW EXAM RADIOLOGY REPORT PROCEDURE: VC EXT VENOUS SOHAN LIMITED COMPARISON: None. INDICATIONS: I80.03 Phlebitis of superficial veins of sohan lower extremity TECHNIQUE: Lower extremity senior scale and Duplex Doppler evaluation of the deep venous system from the inguinal ligament through the calf veins. FINDINGS: REGION: Right lower extremity. THROMBI: Acute and chronic appearing thrombi. Varithena induced thrombus at mid/lateral thigh and prox/lat calf. COMPRESSIBILITY: Non-compressible segments. FLOW: Areas on no flow. OTHER: No patent varicose veins remain. REGION: Left lower extremity. THROMBI: Negative for DVT. COMPRESSIBILITY: Normal compressibility. FLOW: Normal waveform and antegrade flow between 5 and 20 cm/s. OTHER: Negative. CONCLUSION: 1. Successful post ablation occlusion of treated right lower extremity branch saphenous varicosities. 2. Clearing of previously seen small thrombus within left lower extremity deep calf vein. Dictated by: Edin Garrido M.D. on 04/07/2023 at 09:38 Approved by: Edin Garrido M.D. on 04/07/2023 at 09:39
== END 2023-04-07 07:59 | disposition home or self-care (01) ==
LOC: VC 07:59
PROVIDERS: PCP Radiology Diagnostic Radiology; Visit Provider Radiology Diagnostic Radiology
DX: I80.03 Phlebitis and thrombophlebitis of superficial vessels of lower extremities, bilateral (principal)
CPT/HCPCS: 93970; G0463

== ENCOUNTER 2023-04-16 07:55 | Outpatient (OUT) | payer MEDICARE, OTHER, SELFPAY ==
--- NOTE | 2023-04-16 07:58 | VEIN_ITS ---
[address] [address] Patient Name: MARLON PASCAL MRN: [id number] date: 1955 Sex: F Assigned Patient Location: Current Patient Location: Accession/Order Number: [id number] Exam Date: 04/16/2023 08:00 Report Date: 04/16/2023 09:19 At the request of: AMY UV Procedure: VC INJ Foam Sclerosant WUS ICT CUSTOMER SUPPORT OFFICER PROCEDURE: VC INJ Foam Sclerosant WUS ICT CUSTOMER SUPPORT OFFICER HISTORY: Pain due to varicose veins of bilateral legs I83.813 Pre-operative Diagnosis: CEAP class C4 venous insufficiency with pain, tenderness, edema and incompetent branch saphenous vein(s), chronic venous insufficiency left leg secondary to venous incompetence Post-operative Diagnosis: CEAP class C4 venous insufficiency with pain, tenderness, edema and incompetent branch saphenous vein(s), chronic venous insufficiency left leg secondary to venous incompetence Procedure Performed: 1. Ultrasound-guided microfoam chemical ablation with Varithenaregistered 2. Intraoperative ultrasound guidance Physician: Edin Garrido M.D. Anesthesia: None Indications for Procedure: 68 year old female. Symptoms including dilated bulging veins, swelling, leg pain for many years despite conservative medical therapy including medical compression stockings, exercise and analgesics. Prior procedures include endovenous laser ablation and microfoam chemical ablation. Multiple incompetent varicosities of the left leg. Duplex scan showed reflux and enlarged diameters up to 8 mm. The patient underwent informed consent including management options where the complications of infection, bleeding, pain, and skin injury were discussed. Particular attention was spent discussing thrombus extension and deep vein thrombosis as well as the possibility of pulmonary embolus and treatment with oral or injectable blood thinners. Procedure: The patient walked to the procedure room. All applicable staff donned appropriate apparel. A procedure timeout was performed to confirm correct patient, correct extremity, correct procedure, and correct room set-up including presence of all applicable supplies, devices, and drugs. A duplex ultrasound, performed by myself confirmed the location and incompetence of branch saphenous varicosities and their course was marked on the skin together with the dilated tributaries. The extent of treatment of the vein and the associated varicosities was determined through ultrasound mapping. The skin was prepped and then punctured with a butterfly needle and advanced under ultrasound guidance. The Varithenaregistered canister was activated and the canister was primed and purged as required in the instructions for use. Varithenaregistered was drawn into a sterile syringe. Varithenaregistered was slowly administered at 0.5-1.0 cc/second with close observation by ultrasound of its course in the vessels. Total volume utilized was: 15 mL (6 mL into a 5 mm varicosity of the mid anterior lower left leg; 9 mL into an 8 mm varicosity lateral to left knee). Following administration of Varithenaregistered the leg was elevated and the patient was asked to repeatedly dorsiflex the ankle to limit flow of Varithenaregistered into perforating veins. Once appropriate spasm had been confirmed in the treated veins, the vascular catheter was removed from the leg and light pressure was applied over the puncture site for hemostasis. The common femoral and deep superficial veins were then evaluated for flow and compressibility prior to dressing placement. The lower extremity was kept elevated at 45 degrees above the horizontal and cording material was applied over the saphenous segments and tributaries to allow for eccentric compression over the target vessels including the targeted saphenous vein(s). A multilayer dressing was applied consisting of foam pads, coban and thigh-high 20-30 mm Hg compression elastic support hose were placed on the patient. The leg was lowered only after compression had been applied and the patient was immediately ambulatory. The patient ambulated 10 minutes under supervision and was without apparent concerns at time of release. Post-care instructions include advising patient to keep post-treatment bandages in place and dry for 48 hours, avoid extended periods of inactivity, avoid heavy exercise for one week, wear compression stockings on the treated leg continuously for two weeks, to walk daily for 10 minutes over the next month. The patient was instructed to take an anti-inflammatory medicine as needed and to follow up for color duplex scan of the Saphenous veins, the treated branch saphenous varicosities, the adjacent deep veins, and additional treatment within 7 days. PERSONNEL: Choco Choi RN Electronically authenticated by: EDIN GARRIDO Date: 04/16/2023 09:19
== END 2023-04-16 07:56 | disposition home or self-care (01) ==
LOC: VC 07:56
PROVIDERS: PCP Radiology Diagnostic Radiology; Visit Provider Radiology Diagnostic Radiology
DX: I83.813 Varicose veins of bilateral lower extremities with pain (principal)
CPT/HCPCS: 36466

== ENCOUNTER 2023-04-21 12:51 | Outpatient (OUT) | payer MEDICARE, OTHER, SELFPAY ==
--- NOTE | 2023-04-21 12:52 | VEIN_ITS ---
Patient Name: MARLON PASCAL MR#: [id number] : 1955 Exam Date: 04/21/2023 Ordering Doctor: DR AMY VU M.D. RADIOLOGY REPORT PROCEDURE: [facility] - OFFICE VISIT FOLLOW UP [facility] PROGRESS NOTES: The patient reports improvement in leg symptoms. There has been interval reduction in varicosities. The patient has followed our recommendations to walk 20-30 minutes once or twice per day since the procedure. Physical exam demonstrates decrease in varicosities of the leg. Persistent superficial varicosities are identified along the left leg. Review of the ultrasound performed the same day demonstrates occlusive thrombus extending throughout the treated vein(s), see separate report, consistent with a successful ablation. No thrombus extending into or beyond the saphenofemoral junction. The patient expressed a desire to proceed with treatment of incompetent branch saphenous varicosities of left leg. The patient was informed that treatment was a process and would require 1-2 procedures/sessions. VEIN/[facility] EST LMTD IMPRESSION: 1. Successful ablation of the treated left leg branch saphenous vein(s). 2. Persistent incompetent varicose veins and mild lower extremity symptoms. PLAN: Endovenous laser ablation of left leg incompetent branch saphenous varicosities. Nurse notes, history and physical were reviewed and confirmed, see attached forms. The nurse was present throughout the physical exam and consultation Dictated by: Edin Garrido M.D. on 04/21/2023 at 14:52 Approved by: Edin Garrido M.D. on 04/21/2023 at 14:53
--- NOTE | 2023-04-21 12:52 | VEIN_ITS ---
Patient Name: MARLON PASCAL MR#: [id number] : 1955 Exam Date: 04/21/2023 Ordering Doctor: DR AMY VU M.D. RADIOLOGY REPORT PROCEDURE: VC EXT VENOUS LT LIMITED COMPARISON: VC EXT VENOUS LT LIMITED, 03/17/2023. INDICATIONS: Phlebitis of superficial veins of lt lower extremity I80.02 TECHNIQUE: Lower extremity senior scale and Duplex Doppler evaluation of the deep venous system from the inguinal ligament through the calf veins. FINDINGS: REGION: Left lower extremity. THROMBI: Negative for DVT. Varithena induced thrombus visualized at mid/ant calf and lateral knee. COMPRESSIBILITY: Non-compressible segments corresponding to thrombus FLOW: Areas of no flow. OTHER: Patent varicose veins remain measuring up to 4.0mm with 1.5s reflux at mid/med thigh. CONCLUSION: 1. Successful post ablation occlusion of treated left leg incompetent branch saphenous varicosities. Dictated by: Edin Garrido M.D. on 04/21/2023 at 14:51 Approved by: Edin Garrido M.D. on 04/21/2023 at 14:52
== END 2023-04-21 12:52 | disposition home or self-care (01) ==
LOC: VC 12:51
PROVIDERS: PCP Radiology Diagnostic Radiology; Visit Provider Radiology Diagnostic Radiology
DX: I80.02 Phlebitis and thrombophlebitis of superficial vessels of left lower extremity (principal)
CPT/HCPCS: 93971; G0463

== ENCOUNTER 2023-04-28 10:57 | Outpatient (OUT) | payer MEDICARE, OTHER, SELFPAY ==
--- NOTE | 2023-04-28 10:58 | VEIN_ITS ---
[address] [address] Patient Name: MARLON PASCAL MRN: [id number] date: 1955 Sex: F Assigned Patient Location: Current Patient Location: Accession/Order Number: [id number] Exam Date: 04/28/2023 11:00 Report Date: 04/28/2023 12:16 At the request of: AMY UV Procedure: VC INJ Foam Sclerosant WUS LUNCH TRUCK OPERATOR PROCEDURE: VC INJ Foam Sclerosant WUS LUNCH TRUCK OPERATOR HISTORY: Pain due to varicose veins of bilateral legs I83.813 Pre-operative Diagnosis: CEAP class C4a venous insufficiency with pain, tenderness, edema and incompetent branch saphenous vein(s), chronic venous insufficiency right leg secondary to venous incompetence Post-operative Diagnosis: CEAP class C4a venous insufficiency with pain, tenderness, edema and incompetent branch saphenous vein(s), chronic venous insufficiency right leg secondary to venous incompetence Procedure Performed: 1. Ultrasound-guided microfoam chemical ablation with Varithenaregistered 2. Intraoperative ultrasound guidance Physician: Edin Garrido M.D. Anesthesia: None Indications for Procedure: 68 year old female. Symptoms including lower extremity pain, swelling, dilated bulging veins for many years despite conservative medical therapy including medical compression stockings, exercise and analgesics. Prior procedures include endovenous laser ablation and microfoam chemical ablation. Multiple incompetent varicosities of the right and left leg. Duplex scan showed reflux and enlarged diameters up to 5 mm. The patient underwent informed consent including management options where the complications of infection, bleeding, pain, and skin injury were discussed. Particular attention was spent discussing thrombus extension and deep vein thrombosis as well as the possibility of pulmonary embolus and treatment with oral or injectable blood thinners. Procedure: The patient walked to the procedure room. All applicable staff donned appropriate apparel. A procedure timeout was performed to confirm correct patient, correct extremity, correct procedure, and correct room set-up including presence of all applicable supplies, devices, and drugs. A duplex ultrasound, performed by myself confirmed the location and incompetence of branch saphenous varicosities and their course was marked on the skin together with the dilated tributaries. The extent of treatment of the vein and the associated varicosities was determined through ultrasound mapping. The skin was prepped and then punctured with a butterfly needle and advanced under ultrasound guidance. The Varithenaregistered canister was activated and the canister was primed and purged as required in the instructions for use. Varithenaregistered was drawn into a sterile syringe. Varithenaregistered was slowly administered at 0.5-1.0 cc/second with close observation by ultrasound of its course in the vessels. Total volume utilized was: 15 mL (5 mL into a 5 mm varicosity of the distal medial lower right leg; 5 mL into a 5 mm varicosity within posterior mid calf of right leg; 5 mL into a 4 mm varicosity of the proximal medial lower left leg). Following administration of Varithenaregistered the leg was elevated and the patient was asked to repeatedly dorsiflex the ankle to limit flow of Varithenaregistered into perforating veins. Once appropriate spasm had been confirmed in the treated veins, the vascular catheter was removed from the leg and light pressure was applied over the puncture site for hemostasis. The common femoral and deep superficial veins were then evaluated for flow and compressibility prior to dressing placement. The lower extremity was kept elevated at 45 degrees above the horizontal and cording material was applied over the saphenous segments and tributaries to allow for eccentric compression over the target vessels including the targeted saphenous vein(s). A multilayer dressing was applied consisting of foam pads, coban and thigh-high 20-30 mm Hg compression elastic support hose were placed on the patient. The leg was lowered only after compression had been applied and the patient was immediately ambulatory. The patient ambulated 10 minutes under supervision and was without apparent concerns at time of release. Post-care instructions include advising patient to keep post-treatment bandages in place and dry for 48 hours, avoid extended periods of inactivity, avoid heavy exercise for one week, wear compression stockings on the treated leg continuously for two weeks, to walk daily for 10 minutes over the next month. The patient was instructed to take an anti-inflammatory medicine as needed and to follow up for color duplex scan of the Saphenous veins, the treated branch saphenous varicosities, the adjacent deep veins, and additional treatment within 7 days. PERSONNEL: Sharon Watson RN Electronically authenticated by: EDIN GARRIDO Date: 04/28/2023 12:16
== END 2023-04-28 10:58 | disposition home or self-care (01) ==
LOC: VC 10:57
PROVIDERS: PCP Radiology Diagnostic Radiology; Visit Provider Radiology Diagnostic Radiology
DX: I83.813 Varicose veins of bilateral lower extremities with pain (principal)
CPT/HCPCS: 36466

== ENCOUNTER 2023-05-07 14:19 | Outpatient (OUT) | payer MEDICARE, OTHER, SELFPAY ==
--- NOTE | 2023-05-07 14:20 | VEIN_ITS ---
Patient Name: MARLON PASCLA MR#: [id number] : 1955 Exam Date: 05/07/2023 Ordering Doctor: DR AMY VU M.D. RADIOLOGY REPORT PROCEDURE: [facility] EST [facility] VEIN C[facility] - OFFICE VISIT FOLLOW UP COMPARISON: [facility], 04/21/2023. PROGRESS NOTES: The patient reports improvement in leg symptoms. There has been interval reduction in varicosities. The patient has followed our recommendations to walk 20-30 minutes once or twice per day since the procedure. Physical exam demonstrates decrease in varicosities of the leg. Persistent varicosities are identified along the left leg. Review of the ultrasound performed the same day demonstrates occlusive thrombus extending throughout the treated vein(s), see separate report, consistent with a successful ablation. No thrombus extending into or beyond the saphenofemoral junction. The patient expressed a desire to proceed with treatment of remaining incompetent branch saphenous varicosities. The patient was informed that treatment was a process and would require approximately 1 more microfoam ablation procedures[facility]sessions[facility]: 1. Successful ablation of the left leg treated branch saphenous vein(s). 2. Persistent varicose veins and lower extremity symptoms. PLAN: 1. Microfoam chemical ablation of left leg dilated branch saphenous varicosities. Nurse notes, history and physical were reviewed and confirmed, see attached forms. The nurse was present throughout the physical exam and consultation Dictated by: Edin Garrido M.D. on 05/07/2023 at 15:06 Approved by: Edin Garrido M.D. on 05/07/2023 at 15:08
--- NOTE | 2023-05-07 14:20 | VEIN_ITS ---
Patient Name: MARLON PASCAL MR#: [id number] : 1955 Exam Date: 05/07/2023 Ordering Doctor: DR AMY VU M.D. RADIOLOGY REPORT PROCEDURE: VC EXT VENOUS LT LIMITED COMPARISON: VC EXT VENOUS LT LIMITED, 04/21/2023. INDICATIONS: I80.02 Phlebitis of superficial veins of lt lower extremity TECHNIQUE: Lower extremity senior scale and Duplex Doppler evaluation of the deep venous system from the inguinal ligament through the calf veins. FINDINGS: REGION: Left lower extremity. THROMBI: Negative for DVT. Varithena induced thrombus visualized mid/med calf, prox/med calf, and mid/post calf. COMPRESSIBILITY: Non-compressible segments corresponding to thrombus FLOW: Areas of no flow corresponding to thrombus OTHER: Patent varicose veins remain measuring 5.4mm with 0.6s reflux. CONCLUSION: 1. Successful post ablation occlusion of left leg treated branch saphenous varicosities. Dictated by: Edin Garrido M.D. on 05/07/2023 at 15:04 Approved by: Edin Garrido M.D. on 05/07/2023 at 15:06
== END 2023-05-07 14:20 | disposition home or self-care (01) ==
LOC: VC 14:20
PROVIDERS: PCP Radiology Diagnostic Radiology; Visit Provider Radiology Diagnostic Radiology
DX: I80.02 Phlebitis and thrombophlebitis of superficial vessels of left lower extremity (principal)
CPT/HCPCS: 93971; G0463

== ENCOUNTER 2023-05-19 13:52 | Outpatient (OUT) | payer MEDICARE, OTHER, SELFPAY ==
--- NOTE | 2023-05-19 13:55 | VEIN_ITS ---
[address] [address] Patient Name: MARLON PASCAL MRN: [id number] date: 1955 Sex: F Assigned Patient Location: Current Patient Location: Accession/Order Number: [id number] Exam Date: 05/19/2023 14:15 Report Date: 05/19/2023 15:10 At the request of: AMY VU Procedure: VC INJ Foam Sclerosant WUS TILE GRINDER PROCEDURE: VC INJ Foam Sclerosant WUS TILE GRINDER COMPARISON: None. HISTORY: Pain due to varicose veins of bilateral legs I83.813 Pre-operative Diagnosis: CEAP class C4a venous insufficiency with pain, tenderness, edema and incompetent left saphenous and varicose vein(s), chronic venous insufficiency left leg secondary to venous incompetence Post-operative Diagnosis: CEAP class C4a venous insufficiency with pain, tenderness, edema and incompetent left saphenous and varicose vein(s), chronic venous insufficiency left leg secondary to venous incompetence Procedure Performed: 1. Ultrasound-guided microfoam chemical ablation with Varithenaregistered 2. Intraoperative ultrasound guidance Anesthesia: None Indications for Procedure: 68 year female who presents with a long history of lower extremity pain and swelling with extensive hemosiderin staining. The patient failed conservative medical therapy including medical compression stockings, exercise and analgesics. Prior procedures include endovenous laser ablation and microfoam chemical ablation. Multiple incompetent varicosities of the left leg. Duplex scan showed reflux and enlarged diameters up to 6 mm. The patient underwent informed consent including management options where the complications of infection, bleeding, pain, and skin injury were discussed. Particular attention was spent discussing thrombus extension and deep vein thrombosis as well as the possibility of pulmonary embolus and treatment with oral or injectable blood thinners. Procedure: The patient walked to the procedure room. All applicable staff donned appropriate apparel. A procedure timeout was performed to confirm correct patient, correct extremity, correct procedure, and correct room set-up including presence of all applicable supplies, devices, and drugs. A duplex ultrasound, performed by myself confirmed the location and incompetence of branch saphenous varicosities and their course was marked on the skin together with the dilated tributaries. The extent of treatment of the vein and the associated varicosities was determined through ultrasound mapping. The skin was prepped and then punctured with a butterfly needle and advanced under ultrasound guidance. The Varithenaregistered canister was activated and the canister was primed and purged as required in the instructions for use. Varithenaregistered was drawn into a sterile syringe. Following injection; 5 cc injected into a 5 mm varicose vein left distal medial lower leg. 5 cc injected into a 5 mm varicose vein distal medial left lower leg 5 cc injected into a 6 mm varicose vein and distal anterior left thigh Varithenaregistered was slowly administered at 0.5-1.0 cc/second with close observation by ultrasound of its course in the vessels. Total volume utilized was: 15 cc. Following administration of Varithenaregistered the leg was elevated and the patient was asked to repeatedly dorsiflex the ankle to limit flow of Varithenaregistered into perforating veins. Once appropriate spasm had been confirmed in the treated veins, the vascular catheter was removed from the leg and light pressure was applied over the puncture site for hemostasis. The common femoral and deep superficial veins were then evaluated for flow and compressibility prior to dressing placement. The lower extremity was kept elevated at 45 degrees above the horizontal and cording material was applied over the saphenous segments and tributaries to allow for eccentric compression over the target vessels including the targeted saphenous vein(s). A multilayer dressing was applied consisting of foam pads, coban and thigh-high 20-30 mm Hg compression elastic support hose were placed on the patient. The leg was lowered only after compression had been applied and the patient was immediately ambulatory. The patient ambulated 10 minutes under supervision and was without apparent concerns at time of release. Post-care instructions include advising patient to keep post-treatment bandages in place and dry for 48 hours, avoid extended periods of inactivity, avoid heavy exercise for one week, wear compression stockings on the treated leg continuously for two weeks, to walk daily for 10 minutes over the next month. The patient was instructed to take an anti-inflammatory medicine as needed and to follow up for color duplex scan of the Saphenous veins, the treated branch saphenous varicosities, the adjacent deep veins, and additional treatment within 7 days. PERSONNEL: Choco Choi RN Electronically authenticated by: AMY VU Date: 05/19/2023 15:10
== END 2023-05-19 13:53 | disposition home or self-care (01) ==
LOC: VC 13:52
PROVIDERS: PCP Radiology Diagnostic Radiology; Visit Provider Radiology Diagnostic Radiology
DX: I83.813 Varicose veins of bilateral lower extremities with pain (principal)
CPT/HCPCS: 36466

== ENCOUNTER 2023-05-26 08:54 | Outpatient (OUT) | payer MEDICARE, OTHER, SELFPAY ==
--- NOTE | 2023-05-26 08:55 | VEIN_ITS ---
Patient Name: MARLON PASCAL MR#: [id number] : 1955 Exam Date: 05/26/2023 Ordering Doctor: DR DANIEL LAMBERT M.D. RADIOLOGY REPORT PROCEDURE: [facility] EST [facility] - OFFICE VISIT FOLLOW UP COMPARISON: [facility] EST [facility], 05/07/2023. [facility] EST [facility], 04/21/2023. PROGRESS NOTES: The patient reports no significant problems following micro foam chemical ablation of left leg incompetent varicose veins. The patient did not require oral analgesics. The patient has worn her compression stockings. The patient has followed our recommendations to walk 20-30 minutes once or twice per day since the procedure. Physical exam demonstrates multiple thrombosed varicose veins in both legs. Marked reduction in swelling and skin thickening is observed. No erythema or warmth to suggest cellulitis or thrombophlebitis. No active ulceration Review of the ultrasound performed the same day demonstrates occlusive thrombus extending throughout the treated left leg varicose veins. No deep vein thrombus. Residual varicose veins are observed. The patient expressed a desire to proceed with treatment of incompetent left leg varicose veins with micro foam chemical ablation. VEIN/ Facility EST LMTD IMPRESSION: 1. Successful ablation of treated left leg varicose veins 2. Persistent incompetent left leg varicose veins. PLAN: Micro foam chemical ablation left leg incompetent varicose veins Nurse notes, history and physical were reviewed and confirmed, see attached forms. The nurse was present throughout the physical exam and consultation Dictated by: Daniel Lambert MD on 05/26/2023 at 10:44 Approved by: Daniel Lambert MD on 05/26/2023 at 10:46
--- NOTE | 2023-05-26 08:56 | VEIN_ITS ---
Patient Name: MARLON PASCAL MR#: [id number] : 1955 Exam Date: 05/26/2023 Ordering Doctor: DR DANIEL LAMBERT M.D. RADIOLOGY REPORT PROCEDURE: VC EXT VENOUS LT LIMITED COMPARISON: VC EXT VENOUS LT LIMITED, 05/07/2023. VC EXT VENOUS LT LIMITED, 04/21/2023. INDICATIONS: I80.02 Phlebitis of superficial veins of lt lower extremity TECHNIQUE: Lower extremity senior scale and Duplex Doppler evaluation of the deep venous system from the inguinal ligament through the calf veins. FINDINGS: REGION: Left lower extremity. THROMBI: Negative for DVT. Varithena induced thrombus visualized at mid/ant calf and mid/med calf. COMPRESSIBILITY: Non-compressible segments corresponding to thrombus FLOW: Areas of absent flow corresponding to thrombus OTHER: Multiple varicose veins remain. Largest vein measures 4.3mm with 1.4s reflux. CONCLUSION: Post ablation occlusion of treated left leg varicose veins with residual incompetent patent varicose veins measuring up to 4.3 mm Dictated by: Daniel Lambert MD on 05/26/2023 at 09:29 Approved by: Daniel Lambert MD on 05/26/2023 at 09:29
== END 2023-05-26 08:55 | disposition home or self-care (01) ==
LOC: VC 08:54
PROVIDERS: PCP Radiology Diagnostic Radiology; Visit Provider Radiology Diagnostic Radiology
DX: I80.02 Phlebitis and thrombophlebitis of superficial vessels of left lower extremity (principal)
CPT/HCPCS: 93971; G0463

== ENCOUNTER 2023-05-28 07:23 | Outpatient (OUT) | payer MEDICARE, OTHER, SELFPAY ==
--- NOTE | 2023-05-28 07:25 | VEIN_ITS ---
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 HISTORY: Pain due to varicose veins of bilateral legs I83.813 Pre-operative Diagnosis: CEAP class C4a venous insufficiency with pain, tenderness, edema and incompetent left saphenous and varicose vein(s), chronic venous insufficiency left leg secondary to venous incompetence Post-operative Diagnosis: CEAP class C4a venous insufficiency with pain, tenderness, edema and incompetent left saphenous and varicose vein(s), chronic venous insufficiency left leg secondary to venous incompetence Procedure Performed: 1. Ultrasound-guided microfoam chemical ablation with Varithenaregistered 2. Intraoperative ultrasound guidance Anesthesia: None Indications for Procedure: 68-year-old female who presents with a long history of lower extremity pain and swelling resulting in skin thickening and edema and hemosiderin staining. The patient failed conservative medical therapy including medical compression stockings, exercise and analgesics. Prior procedures include endovenous laser ablation and Microfoam chemical ablation. Multiple incompetent varicosities of the left leg. Duplex scan showed reflux and enlarged diameters up to 5 mm. The patient underwent informed consent including management options where the complications of infection, bleeding, pain, and skin injury were discussed. Particular attention was spent discussing thrombus extension and deep vein thrombosis as well as the possibility of pulmonary embolus and treatment with oral or injectable blood thinners. Procedure: The patient walked to the procedure room. All applicable staff donned appropriate apparel. A procedure timeout was performed to confirm correct patient, correct extremity, correct procedure, and correct room set-up including presence of all applicable supplies, devices, and drugs. A duplex ultrasound, performed by myself confirmed the location and incompetence of branch saphenous varicosities and their course was marked on the skin together with the dilated tributaries. The extent of treatment of the vein and the associated varicosities was determined through ultrasound mapping. The skin was prepped and then punctured with a butterfly needle and advanced under ultrasound guidance. The Varithenaregistered canister was activated and the canister was primed and purged as required in the instructions for use. Varithenaregistered was drawn into a sterile syringe. The following injections were made: 3 cc injected into a 4 mm varicose vein left mid lateral lower leg 6 cc injected into a 4 mm varicose vein proximal medial left lower leg 5 cc injected into a 5 mm varicose vein medial distal left thigh Varithenaregistered was slowly administered at 0.5-1.0 cc/second with close observation by ultrasound of its course in the vessels. Total volume utilized was: 14 cc. Following administration of Varithenaregistered the leg was elevated and the patient was asked to repeatedly dorsiflex the ankle to limit flow of Varithenaregistered into perforating veins. Once appropriate spasm had been confirmed in the treated veins, the vascular catheter was removed from the leg and light pressure was applied over the puncture site for hemostasis. The common femoral and deep superficial veins were then evaluated for flow and compressibility prior to dressing placement. The lower extremity was kept elevated at 45 degrees above the horizontal and cording material was applied over the saphenous segments and tributaries to allow for eccentric compression over the target vessels including the targeted saphenous vein(s). A multilayer dressing was applied consisting of foam pads, coban and thigh-high 20-30 mm Hg compression elastic support hose were placed on the patient. The leg was lowered only after compression had been applied and the patient was immediately ambulatory. The patient ambulated 10 minutes under supervision and was without apparent concerns at time of release. Post-care instructions include advising patient to keep post-treatment bandages in place and dry for 48 hours, avoid extended periods of inactivity, avoid heavy exercise for one week, wear compression stockings on the treated leg continuously for two weeks, to walk daily for 10 minutes over the next month. The patient was instructed to take an anti-inflammatory medicine as needed and to follow up for color duplex scan of the Saphenous veins, the treated branch saphenous varicosities, the adjacent deep veins, and additional treatment within 7 days. PERSONNEL: Choco Choi RN Electronically authenticated by: AMY VU Date: 05/28/2023 09:05
--- OUTSIDE RECORDS SUMMARY | 2023-05-28 07:33 | XMS_ITS | CCD ---
Author Name Unknown Address [address] [place] [address] Organization [facility] Care Team Providers Care Manager Mba Name Role Phone SUMI CLAYTON Unavailable Unavailab SHIVA Rios Unavailable Unavailab FARIDA Owen Admitting Unavailable FARIDA WILLAMS Attending Unavailable MISC, DOCTOR Primary Care Unavailable FARIDA WILLAMS Consulting Unavailable AMY VU V Admitting Unavailable AMY VU V Attending Unavailable AMY VU V Consulting Unavailable EDIN GARRIDO Consulting Unavailable Anabel Kyle Unavailable Elizabeth Warner Unavailable SHIVA TURNER Primary Care Physician NONE, XXXX Referring Unavailable Nathan, Mohamed FLaurita Admitting Unavailable Nathan, Mohamed FLaurita Attending Unavailable Shira MCCURDY Attending Unavailable NONE, XXXX Referring Unavailable Shira MCCURDY Admitting Unavailable Carlton Ryan Admitting Unavailable NONE, XXXX Referring Unavailable Carlton Ryan Attending Unavailable Carlton Ryan Admitting Unavailable Carlton Ryan Consulting Unavailable Carlton Ryan Attending Unavailable Carlton Ryan Referring Unavailable Carlton Ryan Consulting Unavailable Carlton Ryan Consulting Unavailable Nathan, Mohamed FLaurita Admitting Unavailable Nathan, Mohamed FLaurita Attending Unavailable Nathan, Mohamed F. Referring Unavailable NONE, XXXX Referring Unavailable Nathan, Mohamed F. Admitting Unavailable Nathan, Mohamed FLaurita Attending Unavailable SHIVA TURNER Attending Unavailable SHIVA TURNER Referring Unavailable Allergies Allergy Classification Reported Allergen(s) Allergy Type Date of Onset Reaction(s) Facility (3 sources) azithromycin; Translations: [AZITHROMYCIN] Drug Allergy 10-25-19 12 [facility] Repository (1 source) celecoxib; Translations: [CELECOXIB] Drug Allergy 10-25-19 12 [facility] Repository (11 sources) codeine; Translations: [CODEINE] Drug Allergy 10-25-19 12 [facility] Repository (10 sources) erythromycin; Translations: [ERYTHROMYCIN] Drug Allergy 06-28-19 16 [facility] Repository (9 sources) Penicillins; Translations: [PENICILLINS] Propensity to adverse reactions to drug (disorder) 10-25-19 12 [facility] Repository (1 source) silver nitrate; Translations: [SILVER NITRATE] Drug Allergy 10-25-19 12 [facility] Repository (1 source) Sulfonamides (Antibiotic); Translations: [SULFA (SULFONAMIDE ANTIBIOTICS)] Propensity to adverse reactions to drug (disorder) 10-25-19 12 [facility] Repository (1 source) Erythromycin Drug Allergy 02-03-[address] [facility] Repository (1 source) Sulfonamides (Antibiotic) Drug allergy (disorder) 02-03-[address] [facility] Repository (2 sources) penicillAMINE Drug Allergy almost as a child [facility] Other (2 sources) Sulfacetamide Drug Allergy rash and hives [facility] Other (7 sources) Meperidine; Translations: [meperidine] Drug Allergy [facility] (7 sources) Sulfonamides (Antibiotic); Translations: [sulfa drugs] Drug allergy [facility] Medications Current Medications Medication Drug Class(es) Dates Sig (Normalized) Sig (Original) Albuterol (2 sources) beta2-Adrenergic Agonist ProAir HFA Active amLODIPine 5 mg oral tablet (8 sources) Dihydropyridine Calcium Channel Lizeth Start: 5 take 1 tablet by mouth once daily amLODIPine 5 mg Tab 5 mg = 1 tab(s), Oral, Daily, Refills(s) 0, High blood pressure Start Date: 12/08/14 Status: Ordered ascorbic acid 1000 mg oral tablet (1 source) Vitamin C take 1 tablet by mouth every twenty-four hours Vitamin C 1000 MG 1 tablet Orally Once a day Active Aspirin (6 sources) Platelet Aggregation Inhibitor, Nonsteroidal Anti-inflammatory Drug Start: 9 aspirin Refills(s) 0 Start Date: 03/22/19 Status: Ordered Budesonide / formoterol (2 sources) Corticosteroid, beta2-Adrenergic Agonist Symbicort Active Calcium and Magnesium oral tablet (6 sources) Start: 9 Calcium and Magnesium oral tablet 1 tab(s), Oral, Daily, 30 tab(s), Refill(s) 0 Start Date: 03/22/19 Status: Ordered hydroCHLOROthiazide 25 mg / spironolactone 25 mg oral tablet (6 sources) Thiazide Diuretic, Aldosterone Antagonist Start: 5 take 1 tablet by mouth once daily hydrochlorothiazid e-spironolactone 25 mg-25 mg Tab 1 tab(s), Oral, Daily, Refill(s) 0, diuretic/water pill Start Date: 12/08/14 Status: Ordered losartan potassium 100 mg oral tablet (6 sources) Angiotensin 2 Receptor Lizeth Start: 5 take 1 tablet by mouth once daily losartan 100 mg Tab 100 mg = 1 tab(s), Oral, Daily, Refills(s) 0, High blood pressure Start Date: 12/08/14 Status: Ordered Losartan Potassium-HCTZ (2 sources) Losartan Potassium-HCTZ Active Magnesium (2 sources) Magnesium Active meloxicam 15 mg oral tablet (2 sources) Nonsteroidal Anti-inflammatory Drug take 1 tablet by mouth once daily Meloxicam 15 MG TAKE 1 TABLET BY MOUTH ONCE DAILY for 30 Active omeprazole 40 mg oral tablet (6 sources) Proton Pump Inhibitor Start: 5 take 40 mg by mouth once daily omeprazole 40 mg, Oral, Daily, Refills(s) 0, Control of stomach acid Start Date: 12/12/14 Status: Ordered pantoprazole 40 mg delayed release oral tablet (2 sources) Proton Pump Inhibitor take 1 tablet by mouth every twenty-four hours Protonix 40 MG 1 tablet Orally Once a day Active ProAir HFA 90 mcg/inh inhalation aerosol (6 sources) Start: 5 take 2 puff(s) by inhalation four times daily ProAir HFA 90 mcg/inh inhalation aerosol 2 puff(s), Inhalation, QID, Refill(s) 0, Shortness of breath or wheezing Start Date: 12/08/14 Status: Ordered spironolactone 25 mg oral tablet (2 sources) Aldosterone Antagonist take 1 tablet by mouth every twenty-four hours Spironolactone 25 MG 1 tablet Orally Once a day Active Stool Softener (2 sources) Stool Softener Active Symbicort 160/4.5 inhalation aerosol with adapter (6 sources) Start: 5 take 2 puff(s) by inhalation twice daily Symbicort 160/4.5 inhalation aerosol with adapter 2 puff(s), Inhalation, BID, Refill(s) 0, Shortness of breath or wheezing Start Date: 12/08/14 Status: Ordered venlafaxine 75 mg oral tablet (8 sources) Serotonin and Norepinephrine Reuptake Inhibitor Start: 5 take 75 mg by mouth once daily venlafaxine 75 mg, Oral, Daily, Refills(s) 0, Depression Start Date: 12/08/14 Status: Ordered take 1 capsule by [facility] every twenty-four hours Effexor XR 75 MG 1 capsule with food Orally Once a day Active vitamin B12 (8 sources) Vitamin B12 Start: 03-22-2019 Vitamin B-12 R efills(s) 0 Start Date: 03/22/19 Status: Ordered Vitamin B12 Acti ve Vitamin C 1000 MG (1 source) take 1 tablet by mouth once daily Vitamin C 1000 MG 1 tablet Orally Once a day Active Vitamin D (6 sources) Start: 03-22-2019 Vitamin D Refills(s) 0 Start Date: 03/22/19 Status: Ordered Vitamin D3 (2 sources) Vitamin D3 Activ e zinc gluconate 50 mg oral tablet (2 sources) take 1 tablet by mouth every twenty-four hours Zinc 50 MG 1 tablet Orally Once a day Active Completed/Discontinued Medications Medication Drug Class(es) Dates Sig (Normalized) Sig (Original) Triamcinolone (2 sources) Corticosteroid Start: 08-11-2019 Kenalog -40 mg Aug, 40 mg Problems Active Problems Problem Classification Problem Date Documented Da te Episodic/Chronic Asthma (2 sources) Exacerbation of asthma; Translations: [Unspecified asthma with (acute) exacerbation] Chronic Esophageal disorders (2 sources) Gastroesophageal reflux disease; Translations: [Gastro-esophageal reflux disease without esophagitis] Chronic Essential hypertension (3 sources) Essential hypertension; Translations: [Essential (primary) hypertension] Onset: 2 Resolved: 2 Chronic Heart valve disorders (1 source) Aortic stenosis, non-rheumatic ; Translations: [Nonrheumatic aortic (valve) stenosis] Onset: 3 Chronic Osteoarthritis (2 sources) Osteoarthritis of left knee joint; Translations: [Unilateral primary osteoarthritis, left knee] Chronic Other connective tissue disease (4 sources) History of total knee arthroplasty; Translations: [Presence of left artificial knee joint] Chronic Other gastrointestinal disorders (2 sources) Dysphagia; Translations: [Dysphagia, unspecified] Episodic Other gastrointestinal disorders (2 sources) Constipation; Translations: [Constipation, unspecified] Episodic Other nutritional; endocrine; and metabolic disorders (2 sources) Body mass index 40+ - severely obese; Translations: [Body mass index (BMI) 50.0-59.9, adult] Chronic Other nutritional; endocrine; and metabolic disorders (1 source) Body mass index (BMI) 50.0-59.9, adult Onset: 2 Resolved: 2 Chronic Other nutritional; endocrine; and metabolic disorders (6 sources) Morbid obesity 03-28-2019 Chronic Residual codes; unclassified (2 sources) Obstructive sleep apnea syndrome; Translations: [Obstructive sleep apnea (adult) (pediatric)] Chronic Residual codes; unclassified (1 source) Obstructive sleep apnea (adult) (pediatric) Onset: 2 Resolved: 2 Chronic Varicose veins of lower extremity (10 sources) Varicose veins of bilateral lower extremities with pain; Translations: [Varicose veins of left lower extremity with other complications] Onset: 9 Episodic Past or Other Problems Problem Classification Problem Date Documented Da te Episodic/Chronic Other non-traumatic joint disorders (1 source) Pain in left knee Onset: 10-01-2021 Resolved: 10-01-2021 Episodic Other skin disorders (1 source) Localized swelling, mass and lump, left lower limb Onset: 10-01-2021 Resolved: 10-01-2021 Episodic Results Test Name Value Interpretation Reference Range Facil ity Coding Summary.on 10-15-2022 Coding Summary. [id number] [id number] [file] YXBzZTog (more content not included)... Normal [facility] Physician Orderon 10-15-2022 Physician Order [id number]:127 Normal [facility] Consent for Treatmenton Consent for Treatment [id number]:127 Normal [facility] Heart and Vascular Office/Cl inic Noteon 10-07-2022 Heart and Vascular Office/Clinic Note Chief Complaint F/U Testing History of Present Illness This is a 67-year-old lady with bilateral lower extremity varicose veins and pain. She has venous eczema with redness above the ankles bilaterally. She uses compression stockings. She is religiously using compression stockings and leg elevation. She is overweight. We discussed getting a venous reflux ultrasound and weight loss and exercise and continue compression stockings. She does not have venous ulcer per se. The pain is significant. I discussed with her the ultrasound results. She will continue compression therapy and come for reassessment in a month. I discussed with her if she would need intervention would be a right GSV ablation and injection sclerotherapy and left lower extremity injection sclerotherapy Review of Systems PHQ Score Initial Depression Screen Score: 0 Constitutional: no fever, no chills, no sweats, no weakness Skin: no Jaundice, no rash, no lesions, nopetechiae ENMT: no ear pain, no sore throat, no congestion, no hoarseness Respiratory: no shortness of breath, no cough, no orthopnea, no wheezing Cardiovascular: no chest pain, no palpitations, no edema Gastrointestinal: no nausea, no vomiting, no diarrhea, no GI bleeding Genitourinary: no dysuria, no hematuria, no discharge, no pain Musculoskeletal: no back pain, no trauma Neurologic: no headache, no dizziness, no numbness, no weakness Psychiatric: no sleeping problems, no irritability, no mood swings/depression. Heme/Lymph: no bleeding tendency, no bruising tendency, no petechiae, no swollen nodes Allergy/Immunologic: no seasonal allergies, no food allergies, no recurrent infections, no impaired immunity Additional ROS info: Except as noted in the above Review of Systems and in the History of Present Illness all other systems have been reviewed and are negative or noncontributory. Physical Exam Vitals & Measurements HR: 72(Peripheral) BP: 136/78 SpO2: 93% HT: 59 in HT: 149 cm WT: 112.1 kg WT: 246.62 lb BMI: 50.49 General: alert, no acute distress Skin: warm, dry Head: no trauma, normocephalic Neck: Trachea midline, no adenopathy, no tenderness Eye: normal conjunctiva, sclera clear Cardiovascular: regular rate and rhythm, normal peripheral perfusion Respiratory: Lungs CTA, respirations non labored Chest wall: no deformity. Gastrointestinal: soft, non distended, no tenderness, no guarding. Back: No tenderness, Normal ROM, Normal alignment. Extremities: no edema,no deformity, no trauma Neurological: oriented x 4, LOC appropriate for age, motor strength equal & normal bilaterally, sensation equal & normal bilaterally, speech normal Psychiatric: cooperative, affect appropriate for age, normal judgement, normal psychiatric thoughts. Assessment/Plan 1. Varicose veins of both lower extremities with pain (I83.813: Varicose veins of bilateral lower extremities with pain) Compression therapy weight loss and exercise. Follow-up in 3 months. Follow-up No qualifying data available Problem List/Past Medical History Ongoing Extreme obesity Historical No qualifying data Procedure/Surgical History Arm, section, Cholecystectomy, Knee, Knee, Tubal ligation. Medications amLODIPine 5 mg Tab, 5 mg= 1 tab(s), Oral, Daily aspirin Calcium and Magnesium oral tablet, 1 tab(s), Oral, Daily hydrochlorothiazide-spironolactone 25 mg-25 mg Tab, 1 tab(s), Oral, Daily losartan 100 mg Tab, 100 mg= 1 tab(s), Oral, Daily omeprazole, 40 mg, Oral, Daily ProAir HFA 90 mcg/inh inhalation aerosol, 2 puff(s), Inhalation, QID Symbicort 160/4.5 inhalation aerosol with adapter, 2 puff(s), Inhalation, BID venlafaxine, 75 mg, Oral, Daily Vitamin B-12 Vitamin D Allergies Demerol HCl codeine erythromycin penicillins sulfa drugs Social History Tobacco - Denies Tobacco Use, 07/01/2022 Former smoker, quit more than 30 days ago Tobacco Use:. Never Smokeless Tobacco Use:. Cigarettes, 10/07/2022 Family History CHF - Congestive heart failure: Father. Congenital heart disease: Negative: Father. Diabetes mellitus type 2: Mother, Father and Brother. Hypertension: Mother and Father. Normal [facility] Comment on above: Result Comment: Elec tronically Signed By: Nathan RAMSEY, Mara Wilson\.br\Date and Time Signed: 10/07/22 12:12 EDT Reminderson 10-07-2022 Reminders - From: Elizabeth Haque MA To: Elizabeth Haqeu MA; Sent: 10/07/2022 14:27:37 EDT Show up: 12/07/2022 14:27:00 EDT Subject: Ambulatory Reminder Due Date/Time: 01/07/2023 14:27:00 EDT Reminder/Recall Patient needs a 3 month f/u with Dr Evans and ask about the GSV ablation if she wants to proceed. Normal [facility] Physician Orderon 09-13-2022 Physician Order [id number]:127 Normal [facility] Coding Summary.on 09-10-2022 Coding Summary. [id number] [id number] [file] YXBzZTog (more content not included)... Normal [facility] LE Venous Duplex Insuffic iency Bilaton 09-04-2022 LE Venous Duplex Insufficiency Bilat Exam Date/Time: 09/02/2022 14:32 EDT Reason for Exam: I83.813;Other (please specify) Report IMPRESSION: RIGHT LEG-DEEP VEINS. NEGATIVE FOR DEEP VENOUS THROMBOSIS. REFLUX RIGHT COMMON FEMORAL VEIN. RIGHT LEG-SUPERFICIAL VEINS. GREATER SAPHENOUS VEIN POSITIVE FOR VALVULAR INCOMPETENCY. SMALL SAPHENOUS VEIN NEGATIVE FOR VALVULAR INCOMPETENCY. LEFT LEG-DEEP VEINS. NEGATIVE FOR DEEP VENOUS THROMBOSIS. LEFT LEG SUPERFICIAL VEINS. GREATER SAPHENOUS VEIN POSITIVE FOR VALVULAR COMPETENCY. SMALL SAPHENOUS VEIN NEGATIVE FOR VALVULAR INCOMPETENCY. CLINICAL HISTORY: I83.813. Bilateral venous varicosities COMMENT: On the right, the greater saphenous vein, common femoral vein, femoral vein, deep femoral vein, and popliteal vein demonstrate spontaneous phasic venous flow with augmentation, non-pulsatility, and compressibility every 2 cm. There is reflux of the right common femoral vein. The posterior tibial and peroneal right deep calf veins compress. On the left, the greater saphenous vein, common femoral vein, femoral vein, deep femoral vein, and popliteal vein demonstrate spontaneous phasic venous flow with augmentation, competence, non-pulsatility, and compressibility every 2 cm. The posterior tibial and peroneal left deep calf veins compress. There are bilateral venous varicosities. The right and left greater saphenous and small saphenous vein measurements are detailed below. Ordering Provider: Mara Evans FINAL REPORT Dictated: 09/04/2022 2:17 pm Ricardo Olea M.D. Signed (Electronic Signature): 09/04/2022 2:17 pm Signed by: Ricardo Olea M.D. Transcribed by: MADDI Technologist: RIKI Technical Comments Patient Position Reverse Trendelenburg CFV Reflux (sec): Sec 5.3 DFV Reflux (sec): None. FV Prox Reflux (sec): None. FV Mid Reflux (sec): None. FV Dist Reflux (sec): None. Technical Comments Pop V Reflux (sec): None. Right Greater Saphenous: Saphenofemoral Junction (at/near): Diameter 0.7 Depth: Intrafascial Reflux (sec): None. Prox thigh: Diameter 0.5 Depth: Intrafascial Reflux (sec): Sec 5.3 Mid thigh: Diameter 0.5 Depth: Intrafascial Reflux (sec): Sec 5.5 Distal thigh: Diameter 0.4 Depth: Intrafascial Reflux (sec): None. At Knee Diameter 0.3 Depth: Intrafascial Reflux (sec): None. Proximal lower leg: Diameter 0.3 Depth: Intrafascial Reflux (sec): None. Mid lower leg: Diameter 0.3 Depth: Intrafascial Reflux (sec): None. Accessory Saphenous: Diameter none Right Small Saphenous: Connects to: Distal Thigh Junction/Proximal Calf Diameter 0.3 Depth: Intrafascial Reflux (sec): None. Mid calf: Diameter 0.3 Depth: Intrafascial Reflux (sec): None. Patient Position Reverse Trendelenburg CFV Reflux (sec): None. DFV Reflux (sec): None. FV Prox Reflux (sec): None. FV Mid Reflux (sec): None. FV Dist Reflux (sec): None. Pop V Reflux (sec): None. Left Greater Saphenous: Saphenofemoral Junction (at/near): Diameter 0.7 Depth: Intrafascial Reflux (sec): None. Prox thigh: Diameter 0.5 Depth: Intrafascial Reflux (sec): None. Mid thigh: Diameter 0.3 Depth: Intrafascial Reflux (sec): None. Distal thigh: Diameter 0.3 Depth: Intrafascial Reflux (sec): None. At Knee Diameter 0.3 Depth: Intrafascial Reflux (sec): Sec 2.6 Proximal lower leg: Diameter 0.3 Depth: Intrafascial Reflux (sec): Sec 5.2 Mid lower leg: Diameter 0.3 Depth: Intrafascial Reflux (sec): Sec 5.5 Accessory Saphenous: Diameter none Left Small Saphenous: Connects to: Distal Thigh Junction/Proximal Calf Diameter 0.2 Depth: Intrafascial Reflux (sec): None. Mid calf: Diameter 0.2 Technical Comments Depth: Intrafascial Normal [facility] Consent for Treatmenton 08-08 Consent for Treatment [id number]:127 Normal [facility] RAD - MISCon 09-02-2022 RAD - MIS [id number] :127 Normal [facility] Coding Summary.on 08-29-2022 Coding Summary. [id number] [id number] [file] YXBzZTog (more content not included)... Normal [facility] Coding Summary.on 08-28-2022 Coding Summary. [id number] [id number] [file] YXBz (more content not included)... Normal [facility] Coding Summary.on 08-20-2022 Coding Summary. [id number] [id number] [file] YXBz (more content not included)... Normal [facility] Consent for Treatmenton 08-07 Consent for Treatment [id number]:127 Normal [facility] Consent for Treatment [id number]:127 Normal [facility] Heart and Vascular Office/Cl inic Noteon 08-19-2022 Heart and Vascular Office/Clinic Note Chief Complaint testing f/u History of Present Illness Kay Pascal is a 67-year-old female patient recently seen by Dr. Ryan for further evaluation of aortic valve stenosis. Additionally, she has hypertension, hyperlipidemia, and is morbidly obese. She was ordered echocardiogram to reevaluate her aortic valve stenosis and stress echocardiogram. Here today to review results. She is doing well since her last visit. She does have some very mild shortness of breath with exertion, however, this has remained stable. She denies any chest pain, palpitations, edema, orthopnea, PND, dizziness, near syncope/syncope. Review of Systems PHQ Score Initial Depression Screen Score: 0 Constitutional: no fever, no chills, no weakness, no fatigue Respiratory: no shortness of breath, no cough, no orthopnea, no wheezing Cardiovascular: no chest pain, no palpitations, no edema Neuro:no dizziness no light headed no syncope Additional ROS info: Except as noted in the above Review of Systems and in the History of Present Illness all other systems have been reviewed and are negative or noncontributory. Physical Exam Vitals & Measurements HR: 72(Peripheral) BP: 130/72 SpO2: 97% HT: 59 in HT: 149 cm WT: 118 kg WT: 259.6 lb BMI: 53.15 General: alert, no acute distress Neck: Supple, noJVD nocarotid bruit Cardiovascular: regular rate and rhythm, systolic murmur normal peripheral perfusion Respiratory: Lungs CTA, respirations non labored Extremities:no edema Neurological: oriented x 4, LOC appropriate for age, sensation equal & normal bilaterally, speech normal Skin: Warm, dry, intact- no rash or concerning lesions Cardiac Diagnostics (08/12/2022 09:28 EST Echo Transthoracic Complete) Interpretation Summary Ejection Fraction = 60-65%. Grade I diastolic dysfunction, (abnormal relaxation pattern). The left ventricular wall motion is normal. Moderate valvular aortic stenosis. Mild aortic regurgitation. There is mild tricuspid regurgitation. Estimated RVSP is moderately elevated at 47 mmHg. In comparison echo report dated 03/01/2019, peak/mean aortic valve has worsened and the mean gradient has increased from 16 to 27 mmHg. There is a typo on the report from 03/01/2019. The mean gradient was not 60 but rather 16. RVSP was not calculated at that time. [1] (08/12/2022 10:29 EST EC Stress Echo Complete w/ Contrast) Interpretation Summary Ejection Fraction = 60-65%. Normal, adequate, treadmill/echocardiogram. Negative for ischemia by EKG and echocardiograph criteria. No anginal symptoms noted. No arrhythmias noted. Appropriate blood pressure response to exercise. Below average exercise capacity for age. Patient's baseline peak/mean aortic valve gradient was 52/19 mmHg, and increased to 59/36 at peak exercise. Aortic valve area not calculated by echo staff at peak exercise. Recommend clinical correlation alternative testing to further evaluate aortic stenosis if clinically indicated. Consider GINO if clinically indicated. [2] Assessment/Plan 1. Aortic valve stenosis (I35.0: Nonrheumatic aortic (valve) stenosis) Moderate aortic valve stenosis. Recent stress echo negative for ischemia, normal LV function. She has had no chest pain, syncope, heart failure symptoms. We will follow-up with MD in 6 months. Call office for new/worsening symptoms for sooner reevaluation. Follow-up With When Contact Information Carlton Ryan MD Within [address] [place] [address] [place] [address]- [phone] Additional Instructions: Problem List/Past Medical History Ongoing Extreme obesity Historical No qualifying data Procedure/Surgical History Arm, section, Cholecystectomy, Knee, Knee, Tubal ligation. Medications amLODIPine 5 mg Tab, 5 mg= 1 tab(s), Oral, Daily aspirin Calcium and Magnesium oral tablet, 1 tab(s), Oral, Daily hydrochlorothiazide-spironolactone 25 mg-25 mg Tab, 1 tab(s), Oral, Daily losartan 100 mg Tab, 100 mg= 1 tab(s), Oral, Daily omeprazole, 40 mg, Oral, Daily ProAir HFA 90 mcg/inh inhalation aerosol, 2 puff(s), Inhalation, QID Symbicort 160/4.5 inhalation aerosol with adapter, 2 puff(s), Inhalation, BID venlafaxine, 75 mg, Oral, Daily Vitamin B-12 Vitamin D Allergies Demerol HCl codeine erythromycin penicillins sulfa drugs Social History Tobacco - Denies Tobacco Use, 07/01/2022 Former smoker, quit more than 30 days ago Tobacco Use:. Never Smokeless Tobacco Use:. Cigarettes, 08/19/2022 Family History CHF - Congestive heart failure: Father. Congenital heart disease: Negative: Father. Diabetes mellitus type 2: Mother, Father and Brother. Hypertension: Mother and Father. [1] Echo Transthoracic Complete; Carlton Ryan MD 08/12/2022 09:28 EST [2] EC Stress Echo Complete w/ Contrast; Carlton Ryan MD 08/12/2022 10:29 EST Normal [facility] Comment on above: Result Comment: Elec tronically Signed By: Shira MCCURDY CNP\.gerard\Date and Time Signed: 08/19/22 17:15 EDT Heart and Vascular Office/Clinic Note Chief Complaint New Patient Varicose Veins History of Present Illness This is a 67-year-old lady with bilateral lower extremity varicose veins and pain. She has venous eczema with redness above the ankles bilaterally. She uses compression stockings. She is religiously using compression stockings and leg elevation. She is overweight. We discussed getting a venous reflux ultrasound and weight loss and exercise and continue compression stockings. She does not have venous ulcer per se. The pain is significant. Review of Systems PHQ Score Initial Depression Screen Score: 0 Constitutional: no fever, no chills, no sweats, no weakness Skin: no Jaundice, no rash, no lesions, nopetechiae ENMT: no ear pain, no sore throat, no congestion, no hoarseness Respiratory: no shortness of breath, no cough, no orthopnea, no wheezing Cardiovascular: no chest pain, no palpitations, no edema Gastrointestinal: no nausea, no vomiting, no diarrhea, no GI bleeding Genitourinary: no dysuria, no hematuria, no discharge, no pain Musculoskeletal: no back pain, no trauma Neurologic: no headache, no dizziness, no numbness, no weakness Psychiatric: no sleeping problems, no irritability, no mood swings/depression. Heme/Lymph: no bleeding tendency, no bruising tendency, no petechiae, no swollen nodes Allergy/Immunologic: no seasonal allergies, no food allergies, no recurrent infections, no impaired immunity Additional ROS info: Except as noted in the above Review of Systems and in the History of Present Illness all other systems have been reviewed and are negative or noncontributory. Physical Exam Vitals & Measurements HR: 72(Peripheral) BP: 130/72 SpO2: 97% HT: 59 in HT: 149 cm WT: 114.6 kg WT: 252.12 lb BMI: 51.62 General: alert, no acute distress Skin: warm, dry Head: no trauma, normocephalic Neck: Trachea midline, no adenopathy, no tenderness Eye: normal conjunctiva, sclera clear Cardiovascular: regular rate and rhythm, normal peripheral perfusion Respiratory: Lungs CTA, respirations non labored Chest wall: no deformity. Gastrointestinal: soft, non distended, no tenderness, no guarding. Back: No tenderness, Normal ROM, Normal alignment. Extremities: no edema,no deformity, no trauma Neurological: oriented x 4, LOC appropriate for age, motor strength equal & normal bilaterally, sensation equal & normal bilaterally, speech normal Psychiatric: cooperative, affect appropriate for age, normal judgement, normal psychiatric thoughts. Assessment/Plan 1. Varicose veins of both lower extremities with pain (I83.813: Varicose veins of bilateral lower extremities with pain) Continue compression stockings leg elevation and exercise. We will get venous reflux. Follow-up No qualifying data available Problem List/Past Medical History Ongoing Extreme obesity Historical No qualifying data Procedure/Surgical History Arm, section, Cholecystectomy, Knee, Knee, Tubal ligation. Medications amLODIPine 5 mg Tab, 5 mg= 1 tab(s), Oral, Daily aspirin Calcium and Magnesium oral tablet, 1 tab(s), Oral, Daily hydrochlorothiazide-spironolactone 25 mg-25 mg Tab, 1 tab(s), Oral, Daily losartan 100 mg Tab, 100 mg= 1 tab(s), Oral, Daily omeprazole, 40 mg, Oral, Daily ProAir HFA 90 mcg/inh inhalation aerosol, 2 puff(s), Inhalation, QID Symbicort 160/4.5 inhalation aerosol with adapter, 2 puff(s), Inhalation, BID venlafaxine, 75 mg, Oral, Daily Vitamin B-12 Vitamin D Allergies Demerol HCl codeine erythromycin penicillins sulfa drugs Social History Tobacco - Denies Tobacco Use, 07/01/2022 Former smoker, quit more than 30 days ago Tobacco Use:. Never Smokeless Tobacco Use:. Cigarettes, 08/19/2022 Family History CHF - Congestive heart failure: Father. Congenital heart disease: Negative: Father. Diabetes mellitus type 2: Mother, Father and Brother. Hypertension: Mother and Father. [facility] Comment on above: Result Comment: Elec tronically Signed By: Nathan RAMSEY, Mara Wilson\.br\Date and Time Signed: 08/19/22 10:18 EDT Progress Note-Nurseon 2022 Progress Note-Nurse [id number]:127 [facility] Reminderson 08-19-2022 Reminders - From: Laila Saldana To: Sharon Peters; Sent: 08/19/2022 11:20:35 EDT Show up: 01/19/2023 11:20:00 EDT Subject: 6 month follow up Due Date/Time: 02/19/2023 11:20:00 EDT Reminder/Recall 6 month follow up with Dr. Ryan (2022) [facility] Stress EKG Tracingson 2022 Stress EKG Tracings [id number]:127 Normal [facility] Consent for Treatmenton - Consent for Treatment [id number]:127 Normal [facility] Coding Summary.on 07-05-2022 Coding Summary. CD:[id number] [file] [id number] (more content not included)... Normal [facility] Consent for Treatmenton 06-10 Consent for Treatment [id number]:127 Normal [facility] Heart and Vascular Office/Cl inic Noteon 07-01-2022 Heart and Vascular Office/Clinic Note History of Present Illness Patient is a very pleasant 67-year-old female with a history of hypertension, previously seen by Dr. Coy in 2019 for cardiac risk assessment for knee surgery. Prior to that she had seen Dr. Clayton, and prior to that she had seen Dr. De La Rosa. Apparently Dr. De La Rosa had done a cardiac catheterization at [facility] about 1999 and 2:12 abnormal stress test. Patient was found to have mild aortic stenosis, and was told that she had syndrome asked by Dr. De La Rosa. She is on no vasodilating medications. At the time of seeing Dr. Coy, she underwent a 2D echo with Doppler on 01/19/2020 with the following results: (01/19/2020 16:20 EDT Echo Transthoracic Complete) IMPRESSION/SUMMARY: 1. Normal left ventricular systolic function, left ventricular ejection fraction of 55-60% with a mild asymmetric septal hypertrophic. 2. Mild aortic valve stenosis across a sclerotic valve and with trace aortic valve insufficiency. 3. Sclerotic mitral valve and mitral valve annular calcification without mitral valve regurgitation or hemodynamically stenosis. 4. Compared to prior study, these findings are stable. [1] In addition she underwent a Lexiscan stress test on 03/23/2019 with the following results: (03/23/2019 15:21 EDT NM Myocardial Spect Multi Stress) IMPRESSION: 1. Nondiagnostic, asymptomatic, unremarkable Lexiscan stress EKG. 2. Likely normal myocardial perfusion imaging with significant soft tissue attenuation artifact noted. [2] Patient is now here to reestablish care. Patient states that she is a former smoker who quit around 42 years ago after a 3-pack-year smoking history. The patient does have dyspnea on exertion after walking 2 flights of stairs but has not changed over the last year. She has no dyspnea on exertion with flat surface and no conversational dyspnea. She denies any sentinel events of presyncope or syncope but does complain of lightheadedness after standing still in a certain position for a while. 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 She denies any chest pain, angina and has occasional lower extremity edema while on amlodipine. She is compliant with her medications. In our office today her blood pressure is 122/64 and pulse is 68 and regular. Physical exam demonstrates a referred murmur from her aortic stenosis to both carotids with 2+ bilateral carotid upstroke, regular rate and rhythm with a 3/6 systolic ejection murmur best heard at the upper right sternal border radiating to the clavicles and carotids, no diastolic murmurs, no S3, S4 or edema noted.. EKG dated 07/01/2022 shows normal sinus rhythm, left anterior hemiblock, incomplete right bundle branch block, poor R wave progression across the precordium with possible old anterior wall myocardial infarction. No change from previous EKG dated 03/08/2019. Review of Systems Constitutional: no fever, no sweats, no weakness Skin: no rash, no lesions, nobruising/petechiae ENMT: no sore throat, no congestion, no hoarseness Respiratory: no shortness of breath, no cough, no orthopnea, no wheezing Cardiovascular: no chest pain, no palpitations, no edema Gastrointestinal: no nausea, no vomiting, no diarrhea, no GI bleeding Genitourinary: no anuria/oliguria no hematuria Musculoskeletal: no back pain, no trauma Neurologic: no headache, no dizziness, no numbness, no weakness Psychiatric: no sleeping problems, no irritability, no anxiety/depression. Heme/Lymph: no bleeding tendency, no bruising tendency Allergy/Immunologic: no recurrent infections, no impaired immunity Additional ROS info: Except as noted in the above Review of Systems and in the History of Present Illness all other systems have been reviewed and are negative or noncontributory. Physical Exam General: alert, no acute distress Skin: warm, dry intact Head: atraumatic, normocephalic Neck: Trachea midline, no JVD, no bruit Eye: normal conjunctiva, sclera clear ENMT: oral mucosa moist Cardiovascular: regular rate and rhythm, nomurmur normal peripheral perfusion Respiratory: Lungs CTA, respirations non labored Chest wall: no deformity. Gastrointestinal: soft, non distended, no tenderness, no guarding. Back: No tenderness, Normal ROM, Normal alignment. Extremities: no edema, no deformity, no trauma Neurological: oriented x 4, LOC appropriate for agesensation equal & normal bilaterally, speech normal Psychiatric: cooperative, affect appropriate for age, normal judgement, normal psychiatric thoughts. Assessment/Plan 1. Aortic stenosis: The patient has mild aortic stenosis by echocardiogram, and has had no sentinel events. She does have dyspnea on exertion but only with walking up stairs and not on a level surface. She is compliant with her medications and is currently on baby aspirin, losartan and amlodipine. Recommend the patient undergo a repeat 2D echo with Doppler to evaluate her LV function, aortic stenosis and pulmonary pressures. In addition she will undergo a modified Sebastien treadmill echocardiogram to e (more content not included)... Normal [facility] Comment on above: Result Comment: Elec tronically Signed By: Connor RAMSEY, Carlton Lowe\.gerard\Date and Time Signed: 07/01/22 11:00 EST Q - KAPPA/LAMBDA LIGHT CHAIN S,FREE WITH RATIO,SERUMon 10-01-2021 KAPPA LIGHT CHAIN, FREE, SERUM 33.1 mg/L High 3.3-19.4 [facility] dical Specialist Comment on above: Order Comment: [facility] performed at: [place], [address] , [address] [place] [address], [address] [place] [address], Editorial Project Manager: Osito Ortega MD [facility] Date/Time: [facility] Results Received Date/Time: [facility] Reported Date/Time: FASTING: NO Performed By: #### 1 0269, [id number] #### [facility] Default [address] [place] [id number] KAPPA/LAMBDA LIGHT CHAINS FR EE WITH RATIO, SERUM 1.21 Normal 0.26-1.65 [facility] [employer] Comment on above: Order Comment: [facility] performed at: [place], [address] , [address] [place] [address], [address] [place] [address], Editorial Project Manager: Osito Ortega MD [facility] Date/Time: [facility] Results Received Date/Time: [facility] Reported Date/Time: FASTING: NO Result Comment: Free kappa/lambda ratio in serum of normal individuals is 0.26-1.65. Excess production of free kappa or lambda chains can alter this ratio. Monoclonal free light chains are found in serum of patients with multiple myeloma, Waldenstrom's macroglobulinemia, mu-heavy chain disease, primary amyloidosis, light chain deposition disease, monoclonal gammopathy of undetermined significance, and lymphoproliferative disorders. Measurement of free light chain concentration in serum is useful for diagnosis, prognosis, monitoring disease activity and following response to therapy of these disorders. Performed By: #### 1 0269, [id number] #### [facility] Default [address] [place] [id number] LAMBDA LIGHT CHAIN, FREE, SERUM 27.4 mg/L High 5.7-26.3 [facility] dical Specialist Comment on above: Order Comment: [facility] performed at: [place], [address] , [address] [place] [address], [address] [place] [address], Editorial Project Manager: Osito Ortega MD [facility] Date/Time: [facility] Results Received Date/Time: [facility] Reported Date/Time: FASTING: NO Performed By: #### 1 0269, [id number] #### [facility] Default [address] [place] [address] Q - PROTEIN ELECTROPHORESIS, WITH TOTAL PROTEIN AND RFX TO IFon 10-01-2021 Albumin [Mass/Vol] 3.7 g/dL Low 3.8-4.8 [facility] Specialist Comment on above: Order Comment: [facility] performed at: [facility], [address] [facility], [address] [place] [address], [address] [place] [address], Editorial Project Manager: Osito Ortega MD [facility] Date/Time: [facility] Results Received Date/Time: [facility] Reported Date/Time: FASTING: NO Performed By: #### 1 0269, [id number] #### [facility] Default [address] [place] [address] ALPHA 1 GLOBULIN 0.4 g/dL High 0.2-0.3 [facility] Specialist Comment on above: Order Comment: [facility] performed at: [facility], [address] [place] [address], [address] [place] [address], [address] [place] [address], Editorial Project Manager: Osito Ortega MD [facility] Date/Time: [facility] Results Received Date/Time: [facility] Reported Date/Time: FASTING: NO Performed By: #### 1 0269, [id number] #### [facility] Default [address] [place] [address] ALPHA 2 GLOBULIN 0.9 g/dL Normal 0.5-0.9 [facility] [employer] Comment on above: Order Comment: [facility] performed at: [facility], [address] [facility], [address] [place] [address], [address] [place] [address], Editorial Project Manager: Osito Ortega MD [facility] Date/Time: [facility] Results Received Date/Time: [facility] Reported Date/Time: FASTING: NO Performed By: #### 1 0269, [id number] #### [facility] Default [address] [place] [address] BETA 1 GLOBULIN 0.5 g/dL Normal 0.4-0.6 [facility] [employer] Comment on above: Order Comment: [facility] performed at: [place], [address] [place] [address], [address] [place] [address], [address] [place] [address], Editorial Project Manager: Osito Ortega MD [facility] Date/Time: [facility] Results Received Date/Time: [facility] Reported Date/Time: FASTING: NO Performed By: #### 1 0269, [id number] #### [facility] Default [address] [facility] [address] BETA 2 GLOBULIN 0.6 g/dL High 0.2-0.5 [facility] [employer] Comment on above: Order Comment: [facility] performed at: [place], [address] [place] [address], [address] [place] [address], [address] [place] [address], Editorial Project Manager: Osito Ortega MD [facility] Date/Time: [facility] Results Received Date/Time: [facility] Reported Date/Time: FASTING: NO Performed By: #### 1 0269, [id number] #### [facility] Default [address] [place] [address] GAMMA GLOBULIN 1.7 g/dL Normal 0.8-1.7 [facility] [employer] Comment on above: Order Comment: [facility] performed at: [place], [address] [place] [address], [address] [place] [address], [address] [place] [address], Editorial Project Manager: Osito Ortega MD [facility] Date/Time: [facility] Results Received Date/Time: [facility] Reported Date/Time: FASTING: NO Performed By: #### 1 0269, [id number] #### [facility] Default [address] [place] [address] INTERPRETATION Suggestive of acute inflammation pattern with elevation of acute phase proteins Normal [facility] Specialist Comment on above: Order Comment: [facility] performed at: [place], [address], [address] [place] [address], [phone], Editorial Project Manager: Osito Ortega MD [facility] Date/Time: [facility] Results Received Date/Time: [id number] [facility] Reported Date/Time: FASTING: NO Result Comment: Sample is hemolyzed. Hemolysis may cause false elevation in the alpha-2 fraction and can induce a double alpha-2 zone. Performed By: #### 1 0269, [id number] #### [facility] Default [address] [place] [address] Protein [Mass/Vol] 7.8 g/dL Normal 6.1-8.1 Radha osorio [place] [facility] Comment on above: Order Comment: [facility] performed at: [facility], [address], [address] [place] [address], [phone], Editorial Project Manager: Osito Ortega MD [facility] Date/Time: [facility] Results Received Date/Time: [id number] [facility] Reported Date/Time: FASTING: NO Performed By: #### 1 0269, [id number] #### [facility] Default [address] [place] [address] XR knee LT 2Von 10-01-2021 XR knee LT 2V [facility] [place] [place] [address] XRay Report Signed Patient: Kay Pascal MR#: [id number] 0 : 1955 Acct:[id number] Age/Sex: 66 / F ADM Date: 10/01/21 Loc: [facility] [place] Room: Type: [facility] Attending Dr: Elizabeth ESCOBARC Ordering Provider: MARIO Hickey Date of Service: 10/01/21 XR/XR knee LT 2V: Acute pain of left knee Copies to: MARIO Hickey LEFT KNEE - 2 views COMPARISON: 03/23/2020 CLINICAL DATA: Follow-up knee replacement. Progressive pain with weightbearing. AP and lateral standing views were obtained. This osteopenia. A knee prosthesis is again visualized. The hardware appears intact and unchanged from the prior. No developing fractures or dislocation are seen. There is small amount of joint fluid. The soft tissues are diffusely prominent related to body habitus. XR/XR knee LT 2V IMPRESSION: STABLE KNEE REPLACEMENT. NO ACUTE BONY FINDINGS. Impression dictated by: Nena Pal M.D.10/01/2021 4:49 PM Dictation Location: [facility] Transcribed By: [facility] 10/01/211648 Dictated By: Nena Pal MD 10/01/211645 Signed By: 10/01/211648 [facility] XR knee LT 2V [facility] [employer] Other XR knee LT 2V [facility] Main [facility] [employer] Other XR knee LT 2V [address] [place] [address] [employer] Other XR knee LT 2V [address] [employer] Other XR knee LT 2V XRay Report [employer] Other XR knee LT 2V Signed [employer] Other XR knee LT 2V Patient: Kay Pascal MR#: [id number] [facility] [employer] Other XR knee LT 2V 0 [employer] Other XR knee LT 2V : 1955 Acct:[id number] [employer] Other XR knee LT 2V Age/Sex: 66 / F ADM Date: 10/01/21 [employer] Other XR knee LT 2V Loc: [facility] Room: Type: [facility] [employer] Other XR knee LT 2V Attending Dr: Ct Warner NP-C [facility] [employer] Other XR knee LT 2V Ordering Provider: MARIO Aldridge [employer] Other XR knee LT 2V Date of Service: 10/01/21 [employer] Other XR knee LT 2V [id number]) XR/XR knee LT 2V: Acute pain of left knee [employer] Other XR knee LT 2V Copies to: MARIO Hickey [facility] [employer] Other XR knee LT 2V LEFT KNEE - 2 views No rt [employer] Other XR knee LT 2V COMPARISON: 03/23/2020 [employer] Other XR knee LT 2V AP and lateral stand ing views were obtained. This osteopenia. A knee prosthesis is again [employer] Other XR knee LT 2V visualized. The hard martino appears intact and unchanged from the prior. No developing fractures or [employer] Other XR knee LT 2V dislocation are seen . There is small amount of joint fluid. The soft tissues are diffusely prominent [employer] Other XR knee LT 2V related to body habitus. [employer] Other XR knee LT 2V X R/XR knee LT 2V [employer] Other XR knee LT 2V IMPRESSION: [employer] Other XR knee LT 2V STABLE KNEE REPLACEMENT. [employer] Other XR knee LT 2V NO ACUTE BONY FINDINGS. [employer] Other XR knee LT 2V Impression dictated by: Nena Pal M.D.10/01/2021 4:49 PM [employer] Other XR knee LT 2V Dictation Location: [facility]--11 [employer] Other XR knee LT 2V Transcribed By: PWS 10/01/21 [facility] [employer] Other XR knee LT 2V Dictated By: Nena Pal MD 10/01/21 [facility] [employer] Other XR knee LT 2V Signed By: [employer] Other XR knee LT 2V 10/01/21 [facility] [employer] Other Basic Metabolic Panel 09-08 Calcium [Mass/Vol] 9.5 mg/dL Normal 8.2-10.2 [facility] Comment on above: Performed By: #### C BC, BMP, HEPATIC, LIPASE #### [facility] [address] [place] [address] [place] Chloride [Moles/Vol] 99 mmol/L Normal 95-114 [facility] Comment on above: Performed By: #### C BC, BMP, HEPATIC, LIPASE #### [facility] [address] [place] [id number] [place] CO2 [Moles/Vol] 26.3 mmol/L Normal 22.0-30.0 [facility] Comment on above: Performed By: #### C BC, BMP, HEPATIC, LIPASE #### [facility] [address] [place] [id number] [place] Creatinine [Mass/Vol] 0.87 mg/dL Normal 0.44-1.03 [facility] Comment on above: Performed By: #### C BC, BMP, HEPATIC, LIPASE #### [facility] [address] [place] [id number] [place] Creatinine Clr Calc Pharmacy 72.87 [facility] Comment on above: Performed By: #### C BC, BMP, HEPATIC, LIPASE #### [facility] [address] Estimated GFR ( Kendal > 60 Normal [facility] Comment on above: Result Comment: GFR estimated reference range: According to KDOQI guidelines, <60 ml/min/1.73m2 is sufficient to diagnose a patient with chronic kidney disease. Performed By: #### C BC, BMP, HEPATIC, LIPASE #### [facility] [address] Estimated GFR (Non- Am > 60 Normal [facility] Comment on above: Performed By: #### C BC, BMP, HEPATIC, LIPASE #### [facility] [address] Glucose [Mass/Vol] 99 mg/dL Normal 70-100 [facility] Comment on above: Result Comment: [place] Glucose Reference Range is dependent on time and content of last meal. Glucose of more than 200 mg/dL in a nonstressed, ambulatory subject supports the diagnosis of Diabetes Mellitus. ADA recommended reference range Performed By: #### C BC, BMP, HEPATIC, LIPASE #### [address] Potassium [Moles/Vol] 3.1 mmol/L Low 3.5-5.1 [facility] Comment on above: Performed By: #### C BC, BMP, HEPATIC, LIPASE #### [address] Sodium [Moles/Vol] 137 mmol/L Normal 136-146 [facility] Comment on above: Performed By: #### C BC, BMP, HEPATIC, LIPASE #### [address] Urea nitrogen [Mass/Vol] 15 mg/dL Normal 9-23 [facility] Comment on above: Performed By: #### C BC, BMP, HEPATIC, LIPASE #### [address] Complete Blood Count Auto Di ffon 09-28-2021 Basophils (Bld) [#/Vol] 0.1 10*3/uL Normal 0.0-0.2 [facility] Comment on above: Result Comment: PERF ORMED BY: [place] [address] PATHOLOGIST [employer] VINNIE MEJIAS M.D. Performed By: #### C BC, BMP, HEPATIC, LIPASE #### [address] Basophils/100 WBC (Bld) 0.6 % Normal . [facility] Comment on above: Performed By: #### C BC, BMP, HEPATIC, LIPASE #### [facility] [address] Eosinophils (Bld) [#/Vol] 0.2 10*3/uL Normal 0.0-0.45 [facility] Comment on above: Performed By: #### C BC, BMP, HEPATIC, LIPASE #### [address] Eosinophils/100 WBC (Bld) 2.1 % Normal . [facility] Comment on above: Performed By: #### C BC, BMP, HEPATIC, LIPASE #### [address] Erythrocyte distribution wid th (RBC) [Ratio] 13.8 % Normal 11.9-15.3 [facility] Comment on above: Performed By: #### C BC, BMP, HEPATIC, LIPASE #### [address] Hematocrit (Bld) [Volume fraction] 44.6 % Normal 34.0-46.4 [facility] Comment on above: Performed By: #### C BC, BMP, HEPATIC, LIPASE #### [address] Hemoglobin (Bld) [Mass/Vol] 14.6 g/dL Normal 11.8-15. 4 [facility] Comment on above: Performed By: #### C BC, BMP, HEPATIC, LIPASE #### [address] Lymphocytes (Bld) [#/Vol] 1.3 10*3/uL Normal 1.00-4.8 [facility] Comment on above: Performed By: #### C BC, BMP, HEPATIC, LIPASE #### [address] Lymphocytes/100 WBC (Bld) 15.2 % Normal . [facility] Comment on above: Performed By: #### C BC, BMP, HEPATIC, LIPASE #### [address] MCH (RBC) [Entitic mass] 27.7 pg Normal 24.7-34.3 [facility] Comment on above: Performed By: #### C BC, BMP, HEPATIC, LIPASE #### [address] MCV (RBC) [Entitic vol] 84.6 fL Normal 80-100 [facility] Comment on above: Performed By: #### C BC, BMP, HEPATIC, LIPASE #### [address] Mean Corpuscular HGB Conc 32.7 g/dL Normal 32.0-35.0 [facility] Comment on above: Performed By: #### C BC, BMP, HEPATIC, LIPASE #### [address] Monocytes (Bld) [#/Vol] 0.9 10*3/uL High 0.0-0.8 [facility] Comment on above: Performed By: #### C BC, BMP, HEPATIC, LIPASE #### [address] Monocytes/100 WBC (Bld) 10.2 % Normal . [facility] Comment on above: Performed By: #### C BC, BMP, HEPATIC, LIPASE #### [address] Neutrophils (Bld) [#/Vol] 6.0 10*3/uL Normal 1.8-7.7 [facility] Comment on above: Performed By: #### C BC, BMP, HEPATIC, LIPASE #### [facility] [address] Neutrophils/100 WBC (Bld) 71.9 % Normal . [facility] Comment on above: Performed By: #### C BC, BMP, HEPATIC, LIPASE #### [address] Nucleated RBC/100 WBC (Bld) [Ratio] 0.2 % Normal 0-0.5 [facility] Comment on above: Performed By: #### C BC, BMP, HEPATIC, LIPASE #### [address] Platelet mean volume (Bld) [Entitic vol] 9.5 fL Normal 6.3-10.7 [facility] Comment on above: Performed By: #### C BC, BMP, HEPATIC, LIPASE #### [address] Platelets (Bld) [#/Vol] 227 10*3/uL Normal 150-450 [facility] Comment on above: Performed By: #### C BC, BMP, HEPATIC, LIPASE #### [address] RBC (Bld) [#/Vol] 5.27 10*6/uL High 3.60-5.00 [facility] Comment on above: Performed By: #### C BC, BMP, HEPATIC, LIPASE #### [address] WBC (Bld) [#/Vol] 8.3 10*3/uL Normal 4.5-11.0 [facility] Comment on above: Performed By: #### C BC, BMP, HEPATIC, LIPASE #### [place] [address] [place] Dipstick and Microscopicon 0 09-28-2021 Appearance (U) Clear Normal Clear [facility] Comment on above: Order Comment: Name Collection Type:: Clean-Voided Midstream Performed By: #### A DDONUAPLUS, CUU #### [address] Bacteria,Urine None Seen Normal None Seen [facility] Comment on above: Order Comment: Name Collection Type:: Clean-Voided Midstream Performed By: #### A DDONUAPLUS, CUU #### [place] [address] [place] Bilirubin,Urine Negative Normal Negative [facility] Comment on above: Order Comment: Name Collection Type:: Clean-Voided Midstream Performed By: #### A DDONUAPLUS, CUU #### [place] [address] [place] Color (U) Yellow Normal Yellow [facility] Comment on above: Order Comment: Name Collection Type:: Clean-Voided Midstream Performed By: #### A DDONUAPLUS, CUU #### [place] [address] [place] Glucose Ql (U) Normal Normal Normal [facility] Comment on above: Order Comment: Name Collection Type:: Clean-Voided Midstream Performed By: #### A DDONUAPLUS, CUU #### [place] [address] [place] Hyaline Casts,Urine 9-19 High 0-8 [facility] Comment on above: Order Comment: Name Collection Type:: Clean-Voided Midstream Result Comment: PERF ORMED BY: [place] [address] PATHOLOGIST [employer] VINNIE MEJIAS M.D. Performed By: #### A DDONUAPLUS, CUU #### [place] [address] [place] Ketones Ql (U) Trace High Negative [facility] Comment on above: Order Comment: Name Collection Type:: Clean-Voided Midstream Performed By: #### A DDONUAPLUS, CUU #### [place] [address] [place] Leukocyte esterase Test stri p Ql (U) 1+ High Negative [facility] Comment on above: Order Comment: Name Collection Type:: Clean-Voided Midstream Performed By: #### A DDONUAPLUS, CUU #### [place] [address] [place] Nitrite,Urine Negative Normal Negative [facility] Comment on above: Order Comment: Name Collection Type:: Clean-Voided Midstream Performed By: #### A DDONUAPLUS, CUU #### [address] Occult Blood,Urine Negative Normal Negative [facility] Comment on above: Order Comment: Name Collection Type:: Clean-Voided Midstream Result Comment: PERF ORMED BY: [place] [address] PATHOLOGIST [employer]WR[employer] VINNIE MEJIAS M.D. Performed By: #### A DDONUAPLUS, CUU #### [address] pH (U) 5.5 [pH] Normal 5.0-9.0 [facility] Comment on above: Order Comment: Name Collection Type:: Clean-Voided Midstream Performed By: #### A DDONUAPLUS, CUU #### [place] [address] [place] Protein,Urine Negative Normal Negative [facility] Comment on above: Order Comment: Name Collection Type:: Clean-Voided Midstream Performed By: #### A DDONUAPLUS, CUU #### [address] RBC LM.HPF (Urine sed) [#/Area] 0 /[HPF] Normal 0-4 [facility] Comment on above: Order Comment: Name Collection Type:: Clean-Voided Midstream Performed By: #### A DDONUAPLUS, CUU #### [place] [address] [place] Specificy Pablo,Urine 1.014 Normal 1.001-1.030 [facility] Comment on above: Order Comment: Name Collection Type:: Clean-Voided Midstream Performed By: #### A DDONUAPLUS, CUU #### [place] [address] [place] Squamous Epithelial Cell,Urine 5-9 High 0-2 [facility] Comment on above: Order Comment: Name Collection Type:: Clean-Voided Midstream Performed By: #### A DDONUAPLUS, CUU #### [facility] [address] Urobilinogen,Urine Normal Normal Normal [facility] Comment on above: Order Comment: Name Collection Type:: Clean-Voided Midstream Performed By: #### A DDONUAPLUS, CUU #### [address] WBC,Urine 5-9 High 0-4 [facility] Comment on above: Order Comment: Name Collection Type:: Clean-Voided Midstream Performed By: #### A DDONUAPLUS, CUU #### [address] Hepatic Panelon 09-28-2021 Albumin [Mass/Vol] 4.0 g/dL Normal 3.2-5.5 [facility] Comment on above: Performed By: #### C BC, BMP, HEPATIC, LIPASE #### [address] Albumin/Globulin [Mass ratio] 0.9 {ratio} Normal [facility] Comment on above: Performed By: #### C BC, BMP, HEPATIC, LIPASE #### [address] ALP [Catalytic activity/Vol] 56 U/L Normal 32-92 [facility] Comment on above: Performed By: #### C BC, BMP, HEPATIC, LIPASE #### [place] [address] [place] ALT [Catalytic activity/Vol] 22 U/L Normal 10-60 [facility] Comment on above: Performed By: #### C BC, BMP, HEPATIC, LIPASE #### [place] [id number] [facility] AST [Catalytic activity/Vol] 23 U/L Normal 10-42 [facility] Comment on above: Performed By: #### C BC, BMP, HEPATIC, LIPASE #### [facility] [address] Bilirubin [Mass/Vol] 0.5 mg/dL Normal 0.3-1.2 [facility] Comment on above: Performed By: #### C BC, BMP, HEPATIC, LIPASE #### [facility] [address] Bilirubin,Indirect Not performed Normal [facility] Comment on above: Performed By: #### C BC, BMP, HEPATIC, LIPASE #### [facility] [address] Bilirubin.indirect [Mass/Vol] mg/dL Normal 0.0-0. 4 [facility] Comment on above: Performed By: #### C BC, BMP, HEPATIC, LIPASE #### [address] Globulin (S) [Mass/Vol] 4.6 g/dL Normal [facility] Comment on above: Performed By: #### C BC, BMP, HEPATIC, LIPASE #### [facility] [address] [place] [address] Protein [Mass/Vol] 8.6 g/dL High 6.1-7.9 [facility] Comment on above: Performed By: #### C BC, BMP, HEPATIC, LIPASE #### [facility] [address] Lipaseon 09-28-2021 Lipase [Catalytic activity/Vol] 31.0 U/L Normal 22-5 1 [facility] Comment on above: Result Comment: PERF ORMED BY: [place] [address] PATHOLOGIST [employer]WR[employer] VINNIE MEJIAS M.D. Performed By: #### C BC, BMP, HEPATIC, LIPASE #### [address] Urine Cultureon 09-28-2021 Bacteria identified Cx Nom (U) >100,000 colonies/ml mixed bacterial skin contaminants including mixed gram negative bacilli - 2 Days PERFORMED BY: [place] [id number] PATHOLOGIST CONSTRU[employer] MILLWR[employer] VINNIE MEJIAS M.D. Normal [facility] Comment on above: Performed By: #### A DDPAYAL ROBERTSON #### [place] [id number] [facility] SCREENING MAMMOGRAM W/OLGA LIDIA, BILATERAL*on 09-12-2021 SCREENING MAMMOGRAM W/OLGA LIDIA, BILATERAL* CLINICAL HISTORY: Screening Mammogram COMPARISON: 12/29/2019, 11/25/2018, and 06/12/2015. TECHNIQUE: 2D and 3D Tomosynthesis of the right and left breasts was performed. FINDINGS: There are scattered fibroglandular densities within each breast, with stable asymmetry and minimal scattered nodularity. There are no suspicious masses, areas of suspicious microcalcifications or areas of architectural distortion identified. No evidence of skin thickening. IMPRESSION: BIRADS 2 : BENIGN FINDINGS, NORMAL INTERVAL FOLLOW UP. Board certified radiologist. Accredited by the ACR and FDA. MAMMOGRAPHY IS VERY IMPORTANT TO YOUR HEALTH. CURRENT [employer] GUIDELINES RECOMMENDS ANNUAL MAMMOGRAPHY BEGINNING AT AGE 41. THIS FACILITY USUALLY USES A REMINDER SYSTEM TO ENSURE ALL POSITIONS RECEIVED REMINDER NOTIFICATIONS AT THE TIME BASED ON THE RECOMMENDATIONS OF THIS EXAM. Report reported and signed by Edin Gomes on 09/12/2021 1619 Normal [facility] Specialist Hemoglobin A1Con 09-10-2021 EAG 145.59 Normal [facility] Comment on above: Performed By: #### m ALBC #### [facility] [address] [place], [place] [id number] HbA1c (Bld) [Mass fraction] 6.7 % High 4.0-6.0 [facility] Comment on above: Performed By: #### m ALBC #### [facility] [address] [place], [place] [id number] Microalbumin (with Creat)on 09-10-2021 mALB <1.2 Low [facility] Comment on above: Result Comment: Unab le to calculate mALB/Crea ratio, mALB is <1.2 mg/dL mALB reference range not established. Performed By: #### m ALBC #### [facility] [address] [facility], [place] [id number] UCREA 43 mg/dL Normal 28-217 [facility] Comment on above: Performed By: #### m ALB #### [facility] [address] [facility] [place], [place] [id number] Q - URINALYSIS,COMPLETEon Appearance (U) CLEAR Normal CLEAR [facility] Comment on above: Order Comment: [facility] performed at: [facility], [address], [address] [place] [address], [address] [place] [address], Editorial Project Manager: Osito Ortega MD [facility] Collection Date/Time: [facility] Results Received Date/Time: [facility] Reported Date/Time: Performed By: #### 3 4F #### [facility] Default [address] [place] [address] BACTERIA NONE SEEN Normal NONE SEEN [facility] Comment on above: Order Comment: [facility] performed at: [facility], [address], [address] [place] [address], [address] [place] [address], Editorial Project Manager: Osito Ortega MD [facility] Date/Time: [facility] Results Received Date/Time: [facility] Reported Date/Time: Performed By: #### 3 4F #### [facility] Default [address] [place] [address] Bilirubin Ql (U) Negative Normal NEGATIVE [facility] Comment on above: Order Comment: [facility] performed at: [facility], [address], [address] [place] [address], [id number], Editorial Project Manager: Osito Ortega MD [facility] Date/Time: [facility] Results Received Date/Time: [facility] Reported Date/Time: Performed By: #### 3 4F #### [facility] [address] [place] [address] Color (U) YELLOW Normal YELLOW [facility] Comment on above: Order Comment: [facility] performed at: [facility], [address] [place] [address], [address] [place] [address], [address] [place] [address], Editorial Project Manager: Osito Ortega MD [facility] Date/Time: [facility] Results Received Date/Time: [facility] Reported Date/Time: Performed By: #### 3 4F #### [facility] [address] [place] [address] Glucose Ql (U) Negative Normal NEGATIVE [facility] Comment on above: Order Comment: [facility] performed at: [facility], [address] [place] [address], [address] [place] [address], [address] [place] [address], Editorial Project Manager: Osito Ortega MD [facility] Date/Time: [facility] Results Received Date/Time: [facility] Reported Date/Time: Performed By: #### 3 4F #### [facility] [address] [place] [address] HYALINE CAST NONE SEEN Normal NONE SEEN [facility] Comment on above: Order Comment: [facility] performed at: [facility], [address] [place] [address], [address] [place] [address], [address] [place] [address], Editorial Project Manager: Osito Ortega MD [facility] Date/Time: [facility] Results Received Date/Time: [facility] Reported Date/Time: Performed By: #### 3 4F #### [facility] [address] [place] [address] Ketones Ql (U) Negative Normal NEGATIVE [facility] Comment on above: Order Comment: [facility] performed at: [facility], [address] [place] [address], [address] [place] [address], [address] [place] [address], Editorial Project Manager: Osito Ortega MD [facility] Date/Time: [facility] Results Received Date/Time: [facility] Reported Date/Time: Performed By: #### 3 4F #### [facility] [address] [place] [address] Leukocyte esterase Test stri p Ql (U) TRACE Abnormal NEGATIVE [facility] dical Specialist Comment on above: Order Comment: [facility] performed at: [facility], [facility], [address] [place] [address], [address] [place] [address], [address] [place] [address], Editorial Project Manager: Osito Ortega MD [facility] Date/Time: [facility] Results Received Date/Time: [facility] Reported Date/Time: Performed By: #### 3 4F #### [facility] [address] [place] [address] Nitrite Ql (U) Negative Normal NEGATIVE [facility] Specialist Comment on above: Order Comment: [facility] performed at: [facility], [facility], [address] [place] [address], [address] [place] [address], [address] [place] [address], Editorial Project Manager: Osito Ortega MD [facility] Date/Time: [facility] Results Received Date/Time: [facility] Reported Date/Time: Performed By: #### 3 4F #### [facility] [address] [place] [address] OCCULT BLOOD Negative Normal NEGATIVE [facility] Comment on above: Order Comment: [facility] performed at: [facility], [facility], [address] [place] [address], [address] [place] [address], [address] [place] [address], Editorial Project Manager: Osito Ortega MD [facility] Date/Time: [facility] Results Received Date/Time: [facility] Reported Date/Time: Performed By: #### 3 4F #### [facility] Default [address] [place] [address] pH (U) 5.5 [pH] Normal 5.0-8.0 [facility] Comment on above: Order Comment: [facility] performed at: [facility], [address] [facility], [address] [place] [address], [address] [place] [address], Editorial Project Manager: Osito Ortega MD [facility] Date/Time: [facility] Results Received Date/Time: [facility] Reported Date/Time: Performed By: #### 3 4F #### [facility] [address] [place] [address] Protein Ql (U) Negative Normal NEGATIVE [facility] Specialist Comment on above: Order Comment: [facility] performed at: [facility], [address] [facility], [address] [place] [address], [address] [place] [address], Editorial Project Manager: Osito Ortega MD [facility] Date/Time: [facility] Results Received Date/Time: [facility] Reported Date/Time: Performed By: #### 3 4F #### [facility] [address] [place] [address] RBC NONE SEEN Normal < OR = 2 [facility] Comment on above: Order Comment: [facility] performed at: [facility], [address] [place] [address], [address] [place] [address], [address] [place] [address], Editorial Project Manager: Osito Ortega MD [facility] Date/Time: [facility] Results Received Date/Time: [facility] Reported Date/Time: Performed By: #### 3 4F #### [facility] [address] [place] [address] Specific gravity (U) [Rel density] 1.008 Normal 1.001-1.035 [facility] dical Specialist Comment on above: Order Comment: [facility] performed at: [facility], [address] [facility], [address] [place] [address], [address] [place] [address], Editorial Project Manager: Osito Ortega MD [facility] Date/Time: [facility] Results Received Date/Time: [facility] Reported Date/Time: Performed By: #### 3 4F #### [facility] Default [address] [place] [address] SQUAMOUS EPITHELIAL CELLS 0-5 Normal < OR = 5 [facility] Specialist Comment on above: Order Comment: [facility] performed at: [facility], [address] [place] [address], [address] [place] [address], [address] [place] [address], Editorial Project Manager: Osito Ortega MD [facility] Date/Time: [facility] Results Received Date/Time: [facility] Reported Date/Time: Performed By: #### 3 4F #### [facility] [address] [place] [address] WBC NONE SEEN Normal < OR = 5 [facility] Specialist Comment on above: Order Comment: [facility] performed at: [facility], [address] [place] [address], [address] [place] [address], [address] [place] [address], Editorial Project Manager: Osito Ortega MD [facility] Date/Time: [facility] Results Received Date/Time: [facility] Reported Date/Time: Performed By: #### 3 4F #### [facility] [address] [place] [address] Q - CBC W/DIFF AND PLTon BASOABS 33 cells/uL Normal 0-200 [facility] Specialist Comment on above: Order Comment: [facility] performed at: [facility], [address] [place] [address], [address] [place] [address], [address] [place] [address], Editorial Project Manager: Osito Ortega MD [facility] Date/Time: [facility] Results Received Date/Time: [facility] Reported Date/Time: Performed By: #### 1 0231A, 968T, [id number], [id number] #### [facility] Default [address] [place] [address] Basophils/100 WBC (Bld) 0.5 % Normal N [facility] Comment on above: Order Comment: [facility] performed at: [facility], [address], [address] [place] [address], [address] [place] [address], Editorial Project Manager: Osito Ortega MD [facility] Date/Time: [facility] Results Received Date/Time: [facility] Reported Date/Time: Performed By: #### 1 0231A, 968T, [id number], 42A #### [facility] Default [address] [place] [address] EOSABS 358 cells/uL Normal 15-500 [facility] Comment on above: Order Comment: [facility] performed at: [employer], [facility], [address] [facility], [address] [place] [address], [address] [place] [address], Editorial Project Manager: Osito Ortega MD [facility] Date/Time: [facility] Results Received Date/Time: [facility] Reported Date/Time: Performed By: #### 1 0231A, 968T, [id number], 42A #### [facility] [address] [place] [address] Eosinophils/100 WBC (Bld) 5.5 % Normal [facility] Specialist Comment on above: Order Comment: [facility] performed at: [facility], [address] [facility], [address] [place] [address], [address] [place] [address], Editorial Project Manager: Osito Ortega MD [facility] Date/Time: [facility] Results Received Date/Time: [facility] Reported Date/Time: Performed By: #### 1 0231A, 968T, [id number], 42A #### [facility] Default [address] [place] [address] Erythrocyte distribution wid th (RBC) [Ratio] 13.0 % Normal 11.0-15.0 [facility] dical Specialist Comment on above: Order Comment: [facility] performed at: [employer], [facility], [address] [facility], [address] [place] [address], [address] [place] [address], Editorial Project Manager: Osito Ortega MD [facility] Date/Time: [facility] Results Received Date/Time: [facility] Reported Date/Time: Performed By: #### 1 0231A, 968T, [id number], 42A #### [facility] Default [address] [place] [address] Hematocrit (Bld) [Volume fraction] 39.5 % Normal 35.0-45.0 [facility] Specialist Comment on above: Order Comment: [facility] performed at: [employer], [facility], [address] [facility], [address] [place] [address], [address] [place] [address], Editorial Project Manager: Osito Ortega MD [facility] Date/Time: [facility] Results Received Date/Time: [facility] Reported Date/Time: Performed By: #### 1 0231A, 968T, [id number], 42A #### [facility] Default [address] [place] [address] Hemoglobin (Bld) [Mass/Vol] 12.9 g/dL Normal 11.7-15. 5 [facility] Specialist Comment on above: Order Comment: [facility] performed at: [facility], [address] , [address] [place] [address], [address] [place] [address], Editorial Project Manager: Osito Ortega MD [facility] Date/Time: [facility] Results Received Date/Time: [facility] Reported Date/Time: Performed By: #### 1 0231A, 968T, 18237A, 42A #### [facility] Default [address] [place] [address] Lymphocytes (Bld) [#/Vol] 1.255 10*3/uL Normal 850-390 0 [facility] Specialist Comment on above: Order Comment: [facility] performed at: [facility], [address] , [address] [place] [address], [address] [place] [address], Editorial Project Manager: Osito Ortega MD [facility] Date/Time: [facility] Results Received Date/Time: [facility] Reported Date/Time: Performed By: #### 1 023, 968T, 38374J, 42A #### [facility] Default [address] [place] [address] Lymphocytes/100 WBC (Bld) 19.3 % Normal [facility] Comment on above: Order Comment: [facility] performed at: [facility], [address] [place] [address], [address] [place] [address], [address] [place] [address], Editorial Project Manager: Osito Ortega MD [facility] Date/Time: [facility] Results Received Date/Time: [facility] Reported Date/Time: Performed By: #### 1 023, 968T, 29973I, 42A #### [facility] Default [address] [place] [address] MCH (RBC) [Entitic mass] 27.5 pg Normal 27.0-33.0 [facility] Comment on above: Order Comment: [facility] performed at: [facility], [address] [place] [address], [address] [place] [address], [address] [place] [address], Editorial Project Manager: Osito Ortega MD [facility] Date/Time: [facility] Results Received Date/Time: [facility] Reported Date/Time: Performed By: #### 1 023, 968T, 70471Z, 42A #### [facility] Default [address] [place] [address] MCHC (RBC) [Mass/Vol] 32.7 g/dL Normal 32.0-36.0 [facility] Comment on above: Order Comment: [facility] performed at: [facility], [address] [place] [address], [address] [place] [address], [address] [place] [address], Editorial Project Manager: Osito Ortega MD [facility] Date/Time: [facility] Results Received Date/Time: [facility] Reported Date/Time: Performed By: #### 1 0231A, 968T, 84072T, 42A #### [facility] Default [address] [place] [address] MCV (RBC) [Entitic vol] 84.2 fL Normal 80.0-100.0 N [facility] Comment on above: Order Comment: [facility] performed at: [facility], [address] [facility], [address] [place] [address], [address] [place] [address], Editorial Project Manager: Osito Ortega MD [facility] Date/Time: [facility] Results Received Date/Time: [facility] Reported Date/Time: Performed By: #### 1 0231A, 968T, 81344F, 42A #### [facility] Default [address] [place] [address] MONOABS 663 cells/uL Normal 200-950 [facility] Specialist Comment on above: Order Comment: [facility] performed at: [facility], [address] [facility], [address] [place] [address], [address] [place] [address], Editorial Project Manager: Osito Ortega MD [facility] Date/Time: [facility] Results Received Date/Time: [facility] Reported Date/Time: Performed By: #### 1 0231A, 968T, 23397B, 42A #### [facility] Default [address] [place] [address] Monocytes/100 WBC (Bld) 10.2 % Normal [facility] Specialist Comment on above: Order Comment: [facility] performed at: [facility], [address] [facility], [address] [place] [address], [address] [place] [address], Editorial Project Manager: Osito Ortega MD [facility] Date/Time: [facility] Results Received Date/Time: [facility] Reported Date/Time: Performed By: #### 1 0231A, 968T, 27840I, 42A #### [facility] Default [address] [place] [address] Neutrophils (Bld) [#/Vol] 4.193 10*3/uL Normal 1500-78 00 [facility] Comment on above: Order Comment: [facility] performed at: [facility], [address] [facility], [address] [place] [address], [address] [place] [address], Editorial Project Manager: Osito Ortega MD [facility] Date/Time: [facility] Results Received Date/Time: [facility] Reported Date/Time: Performed By: #### 1 0231A, 968T, 30079P, 42A #### [facility] Default [address] [place] [address] Neutrophils/100 WBC (Bld) 64.5 % Normal [facility] Comment on above: Order Comment: [facility] performed at: [facility], [address] [facility], [address] [place] [address], [address] [place] [address], Editorial Project Manager: Osito Ortega MD [facility] Date/Time: [facility] Results Received Date/Time: [facility] Reported Date/Time: Performed By: #### 1 0231A, 968T, 36296V, 42A #### [facility] Default [address] [place] [address] Platelet mean volume (Bld) [Entitic vol] 12.0 fL Normal 7.5-12.5 [facility] dical Specialist Comment on above: Order Comment: [facility] performed at: [facility], [address] [facility], [address] [place] [address], [address] [place] [address], Editorial Project Manager: Osito Ortega MD [facility] Date/Time: [facility] Results Received Date/Time: [facility] Reported Date/Time: Performed By: #### 1 0231A, 968T, 95862V, 42A #### [facility] Default [address] [place] [address] Platelets (Bld) [#/Vol] 214 10*3/uL Normal 140-400 [facility] Comment on above: Order Comment: [facility] performed at: [facility], [address] , [address] [place] [address], [address] [place] [address], Editorial Project Manager: Osito Ortega MD [facility] Date/Time: [facility] Results Received Date/Time: [facility] Reported Date/Time: Performed By: #### 1 0231A, 968T, 45497M, 42A #### [facility] Default [address] [place] [address] RBC (Bld) [#/Vol] 4.69 10*6/uL Normal 3.80-5.10 [facility] Comment on above: Order Comment: [facility] performed at: [employer], [facility], [address] , [address] [place] [address], [address] [place] [address], Editorial Project Manager: Osito Ortega MD [facility] Date/Time: [facility] Results Received Date/Time: [facility] Reported Date/Time: Performed By: #### 1 0231A, 968T, 77943G, 42A #### [facility] Default [address] [place] [address] WBC (Bld) [#/Vol] 6.5 10*3/uL Normal 3.8-10.8 [facility] Comment on above: Order Comment: [facility] performed at: [facility], [address] [facility], [address] [place] [address], [address] [place] [address], Editorial Project Manager: Osito Ortega MD [facility] Date/Time: [facility] Results Received Date/Time: [facility] Reported Date/Time: Performed By: #### 1 0231A, 968T, 78686M, 42A #### [facility] Default [address] [place] [address] Q - COMPREHENSIVE METABOLIC PANEL W/EGFRon 05-14-2021 Albumin [Mass/Vol] 3.9 g/dL Normal 3.6-5.1 [facility] Comment on above: Order Comment: [facility] performed at: [facility], [address] [facility], [address] [place] [address], [address] [place] [address], Editorial Project Manager: Osito Ortega MD [facility] Date/Time: [facility] Results Received Date/Time: [facility] Reported Date/Time: Performed By: #### 1 0231A, 968T, 68953N, 42A #### [facility] Default [address] [place] [address] Albumin/Globulin [Mass ratio] 1.1 {ratio} Normal 1.0-2 .5 [facility] Comment on above: Order Comment: [facility] performed at: [facility], [address] [facility], [address] [place] [address], [address] [place] [address], Editorial Project Manager: Osito Ortega MD [facility] Date/Time: [facility] Results Received Date/Time: [facility] Reported Date/Time: Performed By: #### 1 0231A, 968T, 61396R, 42A #### [facility] Default [address] [place] [address] ALP [Catalytic activity/Vol] 63 U/L Normal 37-153 [facility] Specialist Comment on above: Order Comment: [facility] performed at: [facility], [address] [facility], [address] [place] [address], [address] [place] [address], Editorial Project Manager: Osito Ortega MD [facility] Date/Time: [facility] Results Received Date/Time: [facility] Reported Date/Time: Performed By: #### 1 0231A, 968T, 28602Q, 42A #### [facility] Default [address] [place] [address] ALT [Catalytic activity/Vol] 18 U/L Normal 6-29 [facility] Comment on above: Order Comment: [facility] performed at: [facility], [address] [place] [address], [address] [place] [address], [address] [place] [address], Editorial Project Manager: Osito Ortega MD [facility] Date/Time: [facility] Results Received Date/Time: [facility] Reported Date/Time: Performed By: #### 1 0231A, 968T, 00116K, 42A #### [facility] Default [address] [place] [address] AST [Catalytic activity/Vol] 19 U/L Normal 10-35 [facility] Specialist Comment on above: Order Comment: [facility] performed at: [facility], [address] [place] [address], [address] [place] [address], [address] [place] [address], Editorial Project Manager: Osito Ortega MD [facility] Date/Time: [facility] Results Received Date/Time: [facility] Reported Date/Time: Performed By: #### 1 0231A, 968T, 41696A, 42A #### [facility] Default [address] [place] [address] Bilirubin [Mass/Vol] 0.4 mg/dL Normal 0.2-1.2 [facility] Comment on above: Order Comment: [facility] performed at: [facility], [address] [facility], [address] [place] [address], [address] [place] [address], Editorial Project Manager: Osito Ortega MD [facility] Date/Time: [facility] Results Received Date/Time: [facility] Reported Date/Time: Performed By: #### 1 0231A, 968T, 08373A, 42A #### [facility] Default [address] [place] [address] BUN/CREA 29 NOT APPLICABLE Normal 6-22 [facility] Specialist Comment on above: Order Comment: [facility] performed at: [facility], [address] [place] [address], [address] [place] [address], [phone], Editorial Project Manager: Osito Ortega MD [facility] Date/Time: [facility] Results Received Date/Time: [facility] Reported Date/Time: Performed By: #### 1 0231A, 968T, 95273R, 42A #### [facility] Default [address] [place] [address] Calcium [Mass/Vol] 9.2 mg/dL Normal 8.6-10.4 [facility] Specialist Comment on above: Order Comment: [facility] performed at: [facility], [address] [place] [address], [address] [place] [address], [address] [place] [address], Editorial Project Manager: Osito Ortega MD [facility] Date/Time: [facility] Results Received Date/Time: [facility] Reported Date/Time: Performed By: #### 1 0231A, 968T, 84123C, 42A #### [facility] Default [address] [place] [address] Chloride [Moles/Vol] 103 mmol/L Normal 98-110 [facility] Comment on above: Order Comment: [facility] performed at: [facility], [address] [facility], [address] [place] [address], [address] [place] [address], Editorial Project Manager: Osito Ortega MD [facility] Date/Time: [facility] Results Received Date/Time: [facility] Reported Date/Time: Performed By: #### 1 0231A, 968T, 71310F, 42A #### [facility] Default [address] [place] [address] CO2 [Moles/Vol] 32 mmol/L Normal 20-32 [facility] Comment on above: Order Comment: [facility] performed at: [facility], [address] , [address] [place] [address], [address] [place] [address], Editorial Project Manager: Osito Ortega MD [facility] Date/Time: [facility] Results Received Date/Time: [facility] Reported Date/Time: Performed By: #### 1 0231A, 968T, 95177I, 42A #### [facility] Default [address] [place] [address] Creatinine [Mass/Vol] 0.63 mg/dL Normal 0.50-0.99 [facility] Comment on above: Order Comment: [facility] performed at: [facility], [address] , [address] [place] [address], [address] [place] [address], Editorial Project Manager: Osito Ortega MD [facility] Date/Time: [facility] Results Received Date/Time: [facility] Reported Date/Time: Result Comment: For patients >49 years of age, the reference limit for Creatinine is approximately 13% higher for people identified as -Dutch. Performed By: #### 1 0231A, 968T, 01149R, 42A #### [facility] Default [address] [place] [address] eGFRAA 115 mL/min/1.73m2 Normal > OR = 60 [facility] Comment on above: Order Comment: [facility] performed at: [facility], [address] , [address] [place] [address], [address] [place] [address], Editorial Project Manager: Osito Ortega MD [facility] Collection Date/Time: [facility] Results Received Date/Time: [facility] Reported Date/Time: Performed By: #### 1 0231A, 968T, 84417B, 42A #### [facility] Default [address] [place] [address] eGFRNAA 95 mL/min/1.73m2 Normal > OR = 60 [place] [facility] Comment on above: Order Comment: [facility] performed at: [employer], [facility], [address] [place] [address], [address] [place] [address], [address] [place] [address], Editorial Project Manager: Osito Ortega MD [facility] Date/Time: [facility] Results Received Date/Time: [facility] Reported Date/Time: Performed By: #### 1 0231A, 968T, 10991Z, 42A #### [facility] Default [address] [place] [address] Globulin (S) [Mass/Vol] 3.6 g/dL Normal 1.9-3.7 [facility] [place] [facility] Comment on above: Order Comment: [facility] performed at: [facility], [address] [place] [address], [address] [place] [address], [address] [place] [address], Editorial Project Manager: Osito Ortega MD [facility] Date/Time: [facility] Results Received Date/Time: [facility] Reported Date/Time: Performed By: #### 1 0231A, 968T, 90544P, 42A #### [facility] Default [address] [place] [address] Glucose [Mass/Vol] 116 mg/dL High 65-99 [facility] Comment on above: Order Comment: [facility] performed at: [facility], [address] [place] [address], [address] [place] [address], [address] [place] [address], Editorial Project Manager: Osito Ortega MD [facility] Date/Time: [facility] Results Received Date/Time: [facility] Reported Date/Time: Result Comment: Fasting reference interval For someone without known diabetes, a glucose value between 100 and 125 mg/dL is consistent with prediabetes and should be confirmed with a follow-up test. Performed By: #### 1 0231A, 968T, 07479R, 42A #### [facility] Default [address] [place] [address] Potassium [Moles/Vol] 4.3 mmol/L Normal 3.5-5.3 [facility] [place] [facility] Comment on above: Order Comment: [facility] performed at: [facility], [address] [facility], [address] [place] [address], [address] [place] [address], Editorial Project Manager: Osito Ortega MD [facility] Date/Time: [facility] Results Received Date/Time: [facility] Reported Date/Time: Performed By: #### 1 0231A, 968T, 96464Q, 42A #### [facility] Default [address] [place] [address] Protein [Mass/Vol] 7.5 g/dL Normal 6.1-8.1 [facility] o[facility]io [place] [facility] Comment on above: Order Comment: [facility] performed at: [facility], [address] [place] [address], [address] [place] [address], [address] [place] [address], Editorial Project Manager: Osito Ortega MD [facility] Date/Time: [facility] Results Received Date/Time: [facility] Reported Date/Time: Performed By: #### 1 0231A, 968T, 65846P, 42A #### [facility] Default [address] [place] [address] Sodium [Moles/Vol] 140 mmol/L Normal 135-146 [facility] oosrio [place] [facility] Comment on above: Order Comment: [facility] performed at: [facility], [address] [facility], [address] [place] [address], [address] [place] [address], Editorial Project Manager: Osito Ortega MD [facility] Date/Time: [facility] Results Received Date/Time: [facility] Reported Date/Time: Performed By: #### 1 0231A, 968T, 87971B, 42A #### [facility] Default [address] [place] [address] Urea nitrogen [Mass/Vol] 18 mg/dL Normal 7-25 [facility] Comment on above: Order Comment: [facility] performed at: [facility], [address], [address] [place] [address], [phone], Editorial Project Manager: Osito Ortega MD [facility] Date/Time: [facility] Results Received Date/Time: [facility] Reported Date/Time: Performed By: #### 1 0231A, 968T, 33439T, 42A #### [facility] Default [address] [place] [address] Q - HEMOGLOBIN A1C WITH EAGo n 05-14-2021 eAG (mmol/L) 8.1 mmol/L Normal [facility] Comment on above: Order Comment: [facility] performed at: [employer], [facility], [address] , [address] [place] [address], [phone], Editorial Project Manager: Osito rOtega MD [facility] Date/Time: [facility] Results Received Date/Time: [facility] Reported Date/Time: Performed By: #### 1 0231A, 968T, 30336J, 42A #### [facility] Default [address] [place] [address] HEMOGLOBIN A1c 6.7 % of total Hgb High <5.7 No [facility] Comment on above: Order Comment: [facility] performed at: [employer], [facility], [address] , [address] [place] [address], [phone], Editorial Project Manager: Osito Ortega MD [facility] Date/Time: [facility] Results Received Date/Time: [facility] Reported Date/Time: Result Comment: For someone without known diabetes, a hemoglobin A1c value of 6.5% or greater indicates that they may have diabetes and this should be confirmed with a follow-up test. For someone with known diabetes, a value <7% indicates that their diabetes is well controlled and a value greater than or equal to 7% indicates suboptimal control. A1c targets should be individualized based on duration of diabetes, age, comorbid conditions, and other considerations. Currently, no consensus exists regarding use of hemoglobin A1c for diagnosis of diabetes for children. Performed By: #### 1 0231A, 968T, 96542T, 42A #### [facility] Default [address] [place] [address] Magnesium [Mass/Vol] 146 mg/dL Normal [facility] Comment on above: Order Comment: [facility] performed at: [facility], [address] [place] [address], [address] [place] [address], [address] [place] [address], Editorial Project Manager: Osito Ortega MD [facility] Date/Time: [facility] Results Received Date/Time: [facility] Reported Date/Time: Performed By: #### 1 0231A, 968T, 16568Q, 42A #### [facility] Default [address] [place] [address] Q - Lipid Panelon 05-14-2021 Cholesterol [Mass/Vol] 146 mg/dL Normal <[address] [facility] Specialist Comment on above: Order Comment: [facility] performed at: [employer], [address] [place] [address], [address] [place] [address], [address] [place] [address], Editorial Project Manager: Osito Ortega MD [facility] Date/Time: [facility] Results Received Date/Time: [facility] Reported Date/Time: Performed By: #### 1 0231A, 968T, 55149O, 42A #### [facility] Default [address] [place] [address] Cholesterol in HDL [Mass/Vol] 43 mg/dL Low > OR = 50 [facility] Comment on above: Order Comment: [facility] performed at: [employer], [address] [place] [address], [address] [place] [address], [address] [place] [address], Editorial Project Manager: Osito Ortega MD [facility] Date/Time: [facility] Results Received Date/Time: [facility] Reported Date/Time: Performed By: #### 1 0231A, 968T, 19604O, 42A #### [facility] Default [address] [place] [address] Cholesterol in LDL [Mass/Vol] 80 mg/dL Normal [facility] Comment on above: Order Comment: [facility] performed at: [employer], [address] [facility], [address] [place] [address], [phone], Editorial Project Manager: Osito Ortega MD [facility] Date/Time: [facility] Results Received Date/Time: [facility] Reported Date/Time: Result Comment: Refe rence range: <100 Desirable range <100 mg/dL for primary prevention; <70 mg/dL for patients with CHD or diabetic patients with > or = 2 CHD risk factors. LDL-C is now calculated using the Rafat-Lilly calculation, which is a validated novel method providing better accuracy than the Friedewald equation in the estimation of LDL-C. Rafat EDMOND et al. CHRISTIANO. 2013;310(19): 4397-4646 (http://education.[employer]/faq/NNW952) Performed By: #### 1 0231A, 968T, 64633Q, 42A #### [facility] Default [address] [place] [address] Cholesterol.total/Cholestero l in HDL [Mass ratio] 3.4 {ratio} Normal <5.0 [facility] dical Specialist Comment on above: Order Comment: [facility] performed at: [employer], [address] , [address] [place] [address], [phone], Editorial Project Manager: Osito Ortega MD [facility] Date/Time: [facility] Results Received Date/Time: [facility] Reported Date/Time: Performed By: #### 1 0231A, 968T, 20573C, 42A #### [facility] Default [address] [place] [address] NON HDL CHOLESTEROL 103 mg/dL (calc) Normal <130 [facility] Comment on above: Order Comment: [facility] performed at: [facility], [address] [facility], [address] [place] [address], [phone], Editorial Project Manager: Osito Ortega MD [facility] Date/Time: [facility] Results Received Date/Time: [facility] Reported Date/Time: Result Comment: For patients with diabetes plus 1 major ASCVD risk factor, treating to a non-HDL-C goal of <100 mg/dL (LDL-C of <70 mg/dL) is considered a therapeutic option. Performed By: #### 1 0231A, 968T, 35659X, 42A #### [facility] Default [address] [place] [address] Triglyceride [Mass/Vol] 126 mg/dL Normal <150 [facility] Specialist Comment on above: Order Comment: [facility] performed at: [facility], [address] [facility], [address] [place], [address], Editorial Project Manager: Osito Ortega MD [facility] Date/Time: [facility] Results Received Date/Time: [facility] Reported Date/Time: Performed By: #### 1 0231A, 968T, 08383J, 42A #### [facility] Default [address] [place] [address] [facility] 04-12-2019 [facility] Patient: KAY PASCAL Exam Date: 04/12/2019 : 1955 Gender:F Ordering : DR AMY VU M.D. Admission #: [id number] Family : Order #: [id number] CLICK HERE TO VIEW EXAM RADIOLOGY REPORT PROCEDURE: VEIN CENTER CONSULTATION VEIN CENTER - OFFICE VISIT INITIAL COMPARISON: None. PROGRESS NOTES: [age] year old female who presents with a 20 year history of bulging dilated veins, leg pain and swelling, muscle cramping, edema.. The patient's left leg symptoms are worse than the right. There has been a progression of symptoms with recent spontaneous rupture of a superficial vein at the skin surface for which the patient ended up in the emergency department with stitches for closure. 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 The patient describes an improvement with leg elevation. The patient denies any signs and symptoms to suggest arterial ischemia. The patient describes a family history varicose veins within her mother. The patient has drinking and smoking history of moderate alcohol consumption; no tobacco use. Patient has a past medical history significant for diabetes, hypertension, morbid obesity,, fibromyalgia, gastroparesis, obstructive sleep apnea, depressive disorder, hiatal hernia, diverticular disease, rectal polyp, benign colonic polyp, mild aortic stenosis, reactive airways disease, shortness of breath, syndrome X, pulmonary hypertension.. The patient does not half a history of deep venous thrombus or pulmonary embolus. See separate history and physical for medication list. No prior treatment for varicose or spider veins. No current use of compression stockings. After review of nurse notes, history and physical exam I discussed at length the pathophysiology of venous hypertension and possible treatments, therapies and strategies available. We discussed at length the importance of elevating the lower extremities above the level of the heart, increased physical activity and compression stocking use. I spent approximately 35 minutes with the patient with the majority spent in counseling and coordination of care. Ultrasound venous reflux study performed bilaterally and was discussed at length with the patient. The report demonstrates moderate left, mild right great saphenous vein incompetency with incompetent branch saphenous veins bilaterally. PHYSICAL EXAM: The right leg demonstrates large tortuous varicosities, scattered mild spider veins, no ulceration, moderate-marked edema, mild skin discoloration. The left leg demonstrates large tortuous varicosities, scattered mild spider veins, no ulceration, moderate-marked edema, mild skin discoloration. Both thighs, legs and feet were symmetrically warm to the touch. Good posterior tibial and dorsalis pedis pulses were present bilaterally. IMPRESSION: 1. Moderate left, mild right venous insufficiency of the great saphenous vein. 2. 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 Moderate-marked bilateral lower extremity subcutaneous edema 4. No appreciable flow significant arterial disease 5. C4a, EC, , [place] PLAN: 1. Use of compression stockings 2. Elevated legs and increased physical activity symptomatic relief 3. EVLT of great saphenous vein bilaterally followed by Varithena ablation of the branch saphenous grade varicose veins followed by sclerosis of spider veins. Nurse notes, history and physical were reviewed and confirmed, see attached forms. The nurse was present throughout the physical exam and consultation Dictated by: Edin Garrido M.D. on 04/12/2019 at 11:49 Approved by: Edin Garrido M.D. on 04/12/2019 at 12:03 Normal [facility] VC VENOUS REFLUX SOHAN LMTon 1 06-12-2018 VC VENOUS REFLUX SOHAN LMT Patient: KAY PASCAL Exam Date: 04/12/2019 : 1955 Gender:F Ordering : DR AMY VU M.D. Admission #: [id number] Family : Order #: [id number] CLICK HERE TO VIEW EXAM RADIOLOGY REPORT PROCEDURE: VEIN CENTER ULTRASOUND VENOUS REFLUX BILATERAL LIMTED COMPARISON: None. INDICATIONS: Pain co-occurrent and due to varicose veins of bilateral legs I83.813 TECHNIQUE: Duplex imaging of the lower extremity to assess the deep and superficial venous system for the presence of deep or superficial venous incompetence and to document the location and severity of disease. The study includes evaluation of the great saphenous vein (GSV), anterior accessory saphenous vein (AASV) and small saphenous vein (SSV). FINDINGS: RIGHT LOWER EXTREMITY: Saphenofemoral Junction Reflux: Yes 9.0mm 1.2 sec GSV: Diam (mm) Reflux/ Time (sec) Proximal Thigh 7.6 Yes 0.5 Mid Thigh 5.1 Yes 0.6 Distal Thigh 5.9 Yes 0.4 Prox Calf 4.5 Yes 0.6 Mid Calf 5.3 Yes 0.5 Saphenopopliteal Junction Reflux: 5.6mm Yes 0.7 SSV: Proximal Calf 6.2 Yes 0.7 Mid Calf 4.1 No AASV: Not present Proximal Thigh Mid Thigh Distal Thigh Thrombi: No acute or chronic DVT. Compressibility: Normal Flow: Normal Preforator: 4.3mm nuclear equipment sales engineer visualized off the mid lower leg GSV. Tech Note: Incompetent SFJ/GSV, SPJ/SSV 10 cm straight. Incompetent varicose veins visualized anterior proximal thigh 4.5mm with 1.7s of reflux and medial proximal lower leg 5.3mm with 2.3s of reflux. LEFT LOWER EXTREMITY: Saphenofemoral Junction Reflux: Yes 7.0 mm 0.5 sec GSV: Diam (mm) Reflux/Time (sec) Proximal Thigh 9.1 Yes 1.2 Mid Thigh 7.2 Yes 1.1 Distal Thigh 6.3 Yes 0.4 Prox Calf 3.6 No Mid Calf 3.4 No Saphenopopliteal Junction Relux: SSV: Proximal Calf 5.9 No Mid Calf 3.4 No AASV: Not present Proximal Thigh Mid Thigh Distal Thigh Thrombi: No acute or chronic DVT Compressibility: Normal Flow: Normal Body Recall Instructor: No perforators visualized. Tech Note: Incompetent SFJ/GSV, competent SSV thigh extension. Incompetent varicose veins visuailzed mid medial thigh 4.4 mm with 0.5s of reflux and proximal medial lower leg 4.3mm with 2.4s of reflux. CONCLUSION: 1. Right lower extremity incompetent saphenofemoral junction with minimal incompetence of the great saphenous and small saphenous veins. Incompetent branch saphenous varicose veins within the thigh and proximal medial distal lower leg. 2. Incompetent great saphenous vein and branch saphenous varicose veins. Consultation for venous ablation should be considered. Dictated by: Edin Garrido M.D. on 04/12/2019 at 11:14 Approved by: Edin Garrido M.D. on 04/12/2019 at 11:17 Normal [facility] 12-03-2017 CNOV Office Visit (ARI) --------KAY PASCAL ([id number]) 1955 [facility] Time Provider [facility]12/03/17 1:00 PM SUMI CLAYTON During your visit today, we recorded the following information about you: Pulse Respiration Blood pressure Weight 69/minute 18/minute 153/56 112.5 kg Height 1.499 Edgar Clayton MD 12/03/2017 1:38 PM [facility] InstituteRobpresbyterian [facility] and Celina Taveras Department of Cardiovascular MedicineOUTPATIENT VISIT DATE 12/03/17OUTPATIENT VISIT TYPENEWPRIMARY CARE PHYSICIAN:Shiva Turner, [id number] [place] [address]Vcdku: [phone]: [phone] COMPLAINT:Patient presents with:CARD New Patient ConsultHISTORY OF PRESENT ILLNESS:Kay Pascal is a 62 year old female with a past cardiac history of mild tomoderate aortic stenosis and hypertension.12/03/2017The patient presents today as a new patient regarding care of her aorticstenosis and essential hypertension. The patient had a recent echocardiogramon 11/19/2017 revealing mild concentric left ventricular hypertrophy, leftventricular ejection fraction of 63%, grade 2 diastolic dysfunction, moderatebiatrial enlargement, moderate aortic stenosis with a peak gradient of 49 and amean gradient of 26 with an aortic valve area of 1.52 cm?, mild aorticinsufficiency, right ventricular systolic pressure of 40 mmHg. The gradientsacross the aortic valve were slightly higher than a previous echocardiogram.This is now consistent with moderate aortic stenosis. The patient states thatshe gets occasional episodes of lightheadedness. She usually takes a deepbreath or 2 and then feels fine. She denies any syncopal episodes. She doeshave occasional dyspnea on exertion but it is not reliably produced withexertion. She does not have any shortness of breath at rest. She denies anychest discomfort other than episodes of pain in her back that occurred in themiddle of the night which then radiates around to the chest. She gets up outof bed and walks around. She takes a Gas-X and then it resolves on its own inabout 20-60 minutes. She is active to some degree with walking. She does notget much other exercise. She states that her blood pressure is actually muchbetter than this reading here today. She states at home her pressure is in the1:15 to 120 range over 70-80 at home. She was diagnosed with possible syndromeX in the past by her previous cardiology group. This was based on sluggishflow noted on a cardiac catheterization. The catheterization was otherwisenormal. The patient had previously been on amlodipine and diltiazem. Herdiltiazem had been discontinued by her primary care physician.PAST MEDICAL HISTORYDiagnosis Date- Dysthymic disorder Depression (non-psychotic)- Obesity- KHANH (obstructive sleep apnea) +CPAP- Unspecified asthma(493.90) seasonal Asthma Unspecified- Unspecified essential hypertension Essential hypertensionPAST SURGICAL HISTORYProcedure Laterality Date- DELIVERY ONLY , low transverse- COLONOSCOPY- LIGATE FALLOPIAN TUBE Tubal ligation- OPEN FIXATN MID HUMERUS FRACTURE Left ORIF humerus- REMOVAL GALLBLADDER CholecystectomySocial HistorySubstance Use Topics- Smoking status: Former Smoker Packs/day: 0.50 Years: 3.00 Types: Cigarettes Quit date: 12/03/1980- Smokeless tobacco: Never Used Comment: quit 34 years ago as of 01/02/15- Alcohol use NoNo family history on file.ALLERGIES:ALLERGIESAllergen Reactions- Celebrex [Celecoxib] Hives- Codeine Unknown- Erythromycin Rash mycins - Penicillins Anaphylaxis, Unknown ok with keflex- Silver Nitrate Hives- Sulfa (Sulfonamide * Hives- Zpak [Azithromycin] HivesMEDICATIONS:ibuprofen (MOTRIN) 200 mg tablet Take 2 tablets by mouth every 6 hours. withfoodOmeprazole (PRILOSEC) 40 mg capsule Take 40 mg by mouth once daily.spironolactone (ALDACTONE) 25 mg tablet Take 25 mg by mouth once daily.venlafaxine (EFFEXOR) 75 mg tablet Take 1 tablet by mouth once daily.amLODIPine (NORVASC) 5 mg tablet Take 1 tablet by mouth once daily.Hydrochlorothiazide 12.5 mg capsule Take 1 capsule by mouth once daily.cetirizine (ZYRTEC) 10 mg tablet Take 1 tablet by mouth once daily as needed.budesonide-formoterol 160-4.5 mcg/actuation inhaler Inhale 2 Puffs asinstructed twice daily.albuterol HFA (PROAIR HFA) 90 mcg/actuation inhaler Inhale 2 Puffs asinstructed every 6 hours as needed.diltiazem CR (TIAZAC, TAZTIA XT) 180 mg 24 hr capsule Take 180 mg by mouth oncedaily.REVIEW OF SYSTEMS:A complete review of systems was obtained and is remarkable for that notedabove. The remaining systems are unremarkable.I personally interviewed, confirmed and edited the above information ifobtained by others.PHYSICAL EXAMINATION:BP 153/56 Pulse 69 Resp 18 Ht 149.9 cm (4' 11 ) Wt 112.5 kg (248lb) SpO2 98% BMI 50.09 kg/m?General: Well appearing, in no acute distress.Eyes: Conjunctiva normal, sclera normalNeck: No jugular venous distention, no palpable thyromegaly.Heart: Regular rhythm, S1, S2 normal, no S3, no S4. Grade 2 to 3/6 systolicmurmur heard best at both upper sternal borders. No carotid bruits.Respiratory: Clear to auscultation bilaterally. Good respiratory effort.GI: Soft, nontender, bowel sounds normal, no palpable hepatosplenomegalyExtremities: Normal pulses in distal lower extremities. Mild bilateral lowerextremity edema.Neuro: Alert, cooperative with no focal deficit.Psych: Pleasant and cooperative.Skin: No rashes or wounds.CARDIOVASCULAR MEDICINE TESTING:A 2-D echocardiogram obtained on 11/19/2017 reveals a left ventricular ejectionfraction of 63%, mild concentric LVH, grade 2 diastolic dysfunction, moderatebiatrial enlargement, moderate aortic stenosis with a mean gradient of 26 mmHgand a peak gradient of 49 mmHg, aortic valve area 1.52 cm?, mild aorticinsufficiency, trivial tricuspid regurgitation and a right ventricular systolicpressure of 40 mmHg. The previous echocardiogram on 11/21/2014 had a peakgradient of 27 mmHg and a mean gradient of 15 mmHg.I have personally reviewed the above Cardiovascular Medicine Testing.IMPRESSION:1. Nonrheumatic aortic valve stenosis - ICD9: 424.1, ICD10: I35.0 (primarydiagnosis), moderate aortic valve stenosis on recent echocardiogram, nosymptoms secondary to aortic valve stenosis at this time.2. Essential hypertension - ICD9: 401.9, ICD10: I10, controlled by readings athome.3. Preoperative cardiovascular evaluation, the patient would be at low tomoderate risk of a perioperative cardiovascular event for a possible kneesurgery. I would place her risk in the 2-5% range.PLAN:Continue current medical regimen.Serial echocardiograms on a yearly basis.Patient to contact us if she develops significant new chest pain, shortness ofbreath or syncopal episodes.I have suggested the patient follow-up with cardiology every 6-12 months,sooner if she develops new symptoms. Patient is not sure where she would liketo follow-up as this office is closing in April 2018.A copy of this consultation note will be provided to the requesting physicianby way of shared medical record or to the requesting physician via U.S. Mail.This document was generated utilizing [employer]on dictation. I have reviewed andverified that the contents of the document are accurate with the exception ofminor grammatical, spelling and punctuation errors.CONTACT INFORMATION:Thank you for allowing us to participate in the care of this very pleasantpatient. Please free to contact us if we can be of any further assistance.Sumi Clayton MD, [facility]ENTERCRcumberland hall hospitalt and Celina Garciapartment of Cardiovascular MedicineGerman Hospitalrt and Vascular Institute[address] [address]Bwhdxh: [phone] Referring Provider: SHIVA TURNER [[id number]]Allergies As of Date: 12/03/2017 Noted Allergy ReactionCELEBREX (CELECOXIB) 10/25/2011 4 - HivesCODEINE 10/25/2011 16 - UnknownERYTHROMYCIN 06/28/2015 2 - Rash Comments: mycins PENICILLINS 10/25/2011 10 - Anaphylaxis 16 - Unknown Comments: ok with keflexSILVER NITRATE 10/25/2011 4 - HivesSULFA (SULFONAMIDE ANTIBIOTICS) 10/25/2011 4 - HivesZPAK (AZITHROMYCIN) 10/25/2011 4 - HivesDate Reviewed: 12/03/2017Reviewed by: Sumi Clayton - Fully AssessedReason for Visit: CARD New Patient Consult [1228]Primary Visit Diagnosis:Nonrheumatic aortic valve stenosis [I35.0] Other Visit Diagnoses:Essential hypertension [I10] Preop cardiovascular exam [Z01.810]Prescriptions as of 12/03/2017 Sig: IBUPROFEN 200 MG TABLET Take 2 tablets by mouth every* OMEPRAZOLE 40 MG CAPSULE,RONEY* Take 40 mg by mouth once ruben* SPIRONOLACTONE 25 MG TABLET Take 25 mg by mouth once ruben* VENLAFAXINE 75 MG TABLET Take 1 tablet by mouth once d* AMLODIPINE 5 MG TABLET Take 1 tablet by mouth once d* HYDROCHLOROTHIAZIDE 12.5 MG C* Take 1 capsule by mouth once * CETIRIZINE 10 MG TABLET Take 1 tablet by mouth once d* BUDESONIDE-FORMOTEROL HFA 160* Inhale 2 Puffs as instructed * ALBUTEROL SULFATE HFA 90 MCG/* Inhale 2 Puffs as instructed * DILTIAZEM CR 180 MG CAP Take 180 mg by mouth once fernanda*Problem List As Of Date 12/03/2017 Noted Resolved Osteoarthritis [M19.90] INVALID FOR* Knee osteoarthritis [M17.10] INVALID FOR* HTN (hypertension) [I10] INVALID FOR* Diabetes mellitus type 2, controlled, without c*INVALID FOR* Sleep apnea [G47.30] INVALID FOR* Depression [F32.9] INVALID FOR* Primary osteoarthritis of right knee [M17.11] INVALID FOR* S/P right unicompartmental knee replacement [Z9*INVALID FOR* Nonrheumatic aortic valve stenosis [I35.0] INVALID FOR* Status:Closed by EDITH CLAYTON MD on 12/03/17 [facility] PROGRESSon 12-03-2017 PROGRESS HNO ID: [id number] thor: Sumi Proervice: (none)Author Type: PhysicianType: Progress NotesFiled: 12/03/2017 1:38 PMNote Text:Heart and Vascular InstituteYellow Springs and [facility] Department of Cardiovascular MedicineOUTPATIENT VISIT DATE 12/03/17OUTPATIENT VISIT TYPENEWPRIMARY CARE PHYSICIAN:Shiva Turner, [id number] [facility] [address] [address]Gvzhr: [phone]: [phone] COMPLAINT:Patient presents with:CARD New Patient ConsultHISTORY OF PRESENT ILLNESS:Kay Pascal is a 62 year old female with a past cardiac history of mildto moderate aortic stenosis and hypertension.12/03/2017The patient presents today as a new patient regarding care of her aorticstenosis and essential hypertension. The patient had a recentechocardiogram on 11/19/2017 revealing mild concentric left ventricularhypertrophy, left ventricular ejection fraction of 63%, grade 2 diastolicdysfunction, moderate biatrial enlargement, moderate aortic stenosis witha peak gradient of 49 and a mean gradient of 26 with an aortic valve areaof 1.52 cm?, mild aortic insufficiency, right ventricular systolicpressure of 40 mmHg. The gradients across the aortic valve were slightlyhigher than a previous echocardiogram. This is now consistent withmoderate aortic stenosis. The patient states that she gets occasionalepisodes of lightheadedness. She usually takes a deep breath or 2 andthen feels fine. She denies any syncopal episodes. She does haveoccasional dyspnea on exertion but it is not reliably produced withexertion. She does not have any shortness of breath at rest. She deniesany chest discomfort other than episodes of pain in her back that occurredin the middle of the night which then radiates around to the chest. Shegets up out of bed and walks around. She takes a Gas-X and then itresolves on its own in about 20-60 minutes. She is active to some degreewith walking. She does not get much other exercise. She states that herblood pressure is actually much better than this reading here today. Shestates at home her pressure is in the 1:15 to 120 range over 70-80 athome. 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 This was based on sluggish flow noted on acardiac catheterization. The catheterization was otherwise normal. Thepatient had previously been on amlodipine and diltiazem. Her diltiazemhad been discontinued by her primary care physician.PAST MEDICAL HISTORYDiagnosis Date- Dysthymic disorder Depression (non-psychotic)- Obesity- KHANH (obstructive sleep apnea) +CPAP- Unspecified asthma(493.90) seasonal Asthma Unspecified- Unspecified essential hypertension Essential hypertensionPAST SURGICAL HISTORYProcedure Laterality Date- DELIVERY ONLY , low transverse- COLONOSCOPY- LIGATE FALLOPIAN TUBE Tubal ligation- OPEN FIXATN MID HUMERUS FRACTURE Left ORIF humerus- REMOVAL GALLBLADDER CholecystectomySocial HistorySubstance Use Topics- Smoking status: Former Smoker Packs/day: 0.50 Years: 3.00 Types: Cigarettes Quit date: 12/03/1980- Smokeless tobacco: Never Used Comment: quit 34 years ago as of 01/02/15- Alcohol use NoNo family history on file.ALLERGIES:ALLERGIESAllergen Reactions- Celebrex [Celecoxib] Hives- Codeine Unknown- Erythromycin Rash mycins - Penicillins Anaphylaxis, Unknown ok with keflex- Silver Nitrate Hives- Sulfa (Sulfonamide * Hives- Zpak [Azithromycin] HivesMEDICATIONS:ibuprofen (MOTRIN) 200 mg tablet Take 2 tablets by mouth every 6 hours.with foodOmeprazole (PRILOSEC) 40 mg capsule Take 40 mg by mouth once daily.spironolactone (ALDACTONE) 25 mg tablet Take 25 mg by mouth once daily.venlafaxine (EFFEXOR) 75 mg tablet Take 1 tablet by mouth once daily.amLODIPine (NORVASC) 5 mg tablet Take 1 tablet by mouth once daily.Hydrochlorothiazide 12.5 mg capsule Take 1 capsule by mouth once daily.cetirizine (ZYRTEC) 10 mg tablet Take 1 tablet by mouth once daily asneeded.budesonide-formoterol 160-4.5 mcg/actuation inhaler Inhale 2 Puffs asinstructed twice daily.albuterol HFA (PROAIR HFA) 90 mcg/actuation inhaler Inhale 2 Puffs asinstructed every 6 hours as needed.diltiazem CR (TIAZAC, TAZTIA XT) 180 mg 24 hr capsule Take 180 mg by mouthonce daily.REVIEW OF SYSTEMS:A complete review of systems was obtained and is remarkable for that notedabove. The remaining systems are unremarkable.I personally interviewed, confirmed and edited the above information ifobtained by others.PHYSICAL EXAMINATION:BP 153/56 Pulse 69 Resp 18 Ht 149.9 cm (4' 11 ) Wt 112.5 kg(248 lb) SpO2 98% BMI 50.09 kg/m?General: Well appearing, in no acute distress.Eyes: Conjunctiva normal, sclera normalNeck: No jugular venous distention, no palpable thyromegaly.Heart: Regular rhythm, S1, S2 normal, no S3, no S4. Grade 2 to 3/6systolic murmur heard best at both upper sternal borders. No carotidbruits.Respiratory: Clear to auscultation bilaterally. Good respiratory effort.GI: Soft, nontender, bowel sounds normal, no palpable hepatosplenomegalyExtremities: Normal pulses in distal lower extremities. Mild bilaterallower extremity edema.Neuro: Alert, cooperative with no focal deficit.Psych: Pleasant and cooperative.Skin: No rashes or wounds.CARDIOVASCULAR MEDICINE TESTING:A 2-D echocardiogram obtained on 11/19/2017 reveals a left ventricularejection fraction of 63%, mild concentric LVH, grade 2 diastolicdysfunction, moderate biatrial enlargement, moderate aortic stenosis witha mean gradient of 26 mmHg and a peak gradient of 49 mmHg, aortic valvearea 1.52 cm?, mild aortic insufficiency, trivial tricuspid regurgitationand a right ventricular systolic pressure of 40 mmHg. The previousechocardiogram on 11/21/2014 had a peak gradient of 27 mmHg and a meangradient of 15 mmHg.I have personally reviewed the above Cardiovascular Medicine Testing.IMPRESSION:1. Nonrheumatic aortic valve stenosis - ICD9: 424.1, ICD10: I35.0 (primarydiagnosis), moderate aortic valve stenosis on recent echocardiogram, nosymptoms secondary to aortic valve stenosis at this time.2. Essential hypertension - ICD9: 401.9, ICD10: I10, controlled byreadings at home.3. Preoperative cardiovascular evaluation, the patient would be at low tomoderate risk of a perioperative cardiovascular event for a possible kneesurgery. I would place her risk in the 2-5% range.PLAN:Continue current medical regimen.Serial echocardiograms on a yearly basis.Patient to contact us if she develops significant new chest pain,shortness of breath or syncopal episodes.I have suggested the patient follow-up with cardiology every 6-12 months,sooner if she develops new symptoms. Patient is not sure where she wouldlike to follow-up as this office is closing in April 2018.A copy of this consultation note will be provided to the requestingphysician by way of shared medical record or to the requesting physicianvia U.S. Mail.This document was generated utilizing [employer] dictation. I have reviewedand verified that the contents of the document are accurate with theexception of minor grammatical, spelling and punctuation errors.CONTACT INFORMATION:Thank you for allowing us to participate in the care of this very pleasantpatient. Please free to contact us if we can be of any furtherassistance.Sumi Clayton MD, FACCRuniversity of louisville hospital and Celina Garciaparthelen of Cardiovascular MedicineHeart and Vascular InstitutePremier Health [facility], [place] [address]Gjzkvm: [phone] Normal [facility] Vital Signs Date Time Vital Sign Value Performing Clinician Facility 10-07-2022 11:42-0400 Blood Pressure Location Mara Evans [facility] 10-07-2022 11:42-0400 Diastolic blood pressure 78 mm[Hg] Mara Nathan [facility] 10-07-2022 11:42-0400 Heart rate 72 /min [facility] 10-07-2022 11:42-0400 SaO2% (BldA) [Mass fraction] 93 % Mara Vicentean [facility] 10-07-2022 11:42-0400 Systolic blood pressure 136 mm[Hg] Mara Vicentean [facility] 08-19-2022 09:23-0400 Blood Pressure Location Shira MCCURDY [facility] 08-19-2022 09:23-0400 Diastolic blood pressure 72 mm[Hg] Shiraorlando MOSQUERAG [facility] 08-19-2022 09:23-0400 Heart rate 72 /min Shiraorlando MOSQUERAG [facility] 08-19-2022 09:23-0400 SaO2% (BldA) [Mass fraction] 97 % Shiraorlando MOSQUERAG [facility] 08-19-2022 09:23-0400 Systolic blood pressure 130 mm[Hg] Shiraorlando MOSQUERAG [facility] 07-01-2022 10:25-0500 Blood Pressure Location Carlton Ryan [facility] 07-01-2022 10:25-0500 Diastolic blood pressure 64 mm[Hg] Carlton Ryan [facility] 07-01-2022 10:25-0500 Heart rate 68 /min Carlton Ryan [facility] 07-01-2022 10:25-0500 SaO2% (BldA) [Mass fraction] 96 % Carlton Ryan [facility] 07-01-2022 10:25-0500 Systolic blood pressure 122 mm[Hg] Carlton Ryan [facility] 08-09-2021 15:30-0500 Body height 144.78 cm Anabel Kyle Other [facility] Other 08-09-2021 15:30-0500 Body mass index (BMI) [Ratio] 55.82 kg/m2 Anabel Kyle Other [facility] Other 08-09-2021 15:30-0500 Body temperature 96.6 [degF] Anabel Kyle Other [facility] Other 08-09-2021 15:30-0500 Body weight 117.03 kg Anabel Kyle Other [facility] Other 08-09-2021 15:30-0500 Diastolic blood pressure 66 mm[Hg] Anabel Kyle Other [facility] Other 08-09-2021 15:30-0500 SaO2% (BldA) [Mass fraction] 97 % Anabel Kyle Other [facility] Other 08-09-2021 15:30-0500 Systolic blood pressure 140 mm[Hg] Anabel Kyle Other [facility] Other Encounters Encounter Date Encounter Type Care Provider Facility Start: 05-19-2023 End: 05-19-2023 ambulatory SHIVA TURNER Not Available Start: 10-07-2022 End: 10-08-2022 ambulatory XXXX NONE Facility:[facility] Start: 10-07-2022 End: 10-07-2022 Patient encounter procedure Mara Evans [facility] Start: 09-02-2022 End: 09-03-2022 ambulatory Mara Evans Facility:[facility] Start: 09-02-2022 End: 09-02-2022 Patient encounter procedure Mara Evans [facility] Start: 08-19-2022 End: 08-20-2022 ambulatory XXXX NONE Facility:[facility] Start: 08-19-2022 End: 08-19-2022 Patient encounter procedure Shira MCCURDY [facility] Start: 08-12-2022 End: 08-13-2022 ambulatory Carlton Ryan Facility:[facility] Start: 08-12-2022 End: 08-12-2022 Patient encounter procedure Carlton Ryan [facility] Start: 07-01-2022 End: 07-02-2022 ambulatory Carlton Ryan Facility:[facility] Start: 07-01-2022 End: 07-01-2022 Patient encounter procedure Carlton Ryan [facility] Start: 10-01-2021 End: 10-01-2021 ambulatory Elizabeth Warner Other [facility] Other Start: 10-01-2021 Office outpatient vi sit 15 minutes Elizabeth Warner [facility] Start: 08-09-2021 End: 08-09-2021 ambulatory Anabel Kyle Other [facility] Other Start: 08-09-2021 Office outpatient vi sit 25 minutes Anabel Kyle [facility] Start: 04-12-2019 End: 04-13-2019 Patient encounter procedure AMY VU Facility:[facility] Start: 04-05-2019 End: 04-05-2019 Patient encounter procedure FARIDA WILLAMS Facility:[facility] Start: 12-03-2017 End: 12-10-2017 Ambulatory SUMI CLAYTON [facility] [place] Procedures Date Procedure Procedure Detail Performing Clinician section Carlton Frye on Comment on above: 1979 Cholecystectomy Carlton cohen Comment on above: 1998 Knee region structure (body structure) Carlton Ryan Comment on above: Full Left knee Repla cement Partial Right knee r eplacement Ligation of fallopian tube D kamran Ryan Comment on above: 1979 Upper limb structure (body structure) Carlton Ryan Comment on above: Left Arm surgery Payers Date Payer Category Payer Medicare 2021 Medicare [id number] 2.1 [id number] 2021 Private Health Insurance CLI [id number] 1959 Unknown [id number] 1955 Unknown [id number] 2.16.84 [id number] 1955 Unknown [id number] 2.16.84 [id number] 1955 Unknown [id number] 2.16.8 [id number] 1955 Unknown [id number] 2.16.8 [id number] 1955 Unknown [id number] 2.16.8 [id number] 1955 Unknown [id number] 2.16.8 [id number] 1955 Unknown [id number] 2.16.8 [id number] 1955 Unknown [id number] 2.16.8 [id number] 1955 Unknown [id number] 2.16.840 .[id number] Medicare [id number] 2.1 [id number] Social History Date Type Detail Facility Sex Assigned At [facility] Start: 07-01-2022 End: 10-07-2022 Tobacco smoking status Ex-smoker (finding) [facility] Comment on above: Patient quit 42 year s ago. Tobacco smoking status Never [facility] Comment on above: Patient quit 42 year s ago. Functional Status Date Assessment Result Facility 10-07-2022 Functional Status No [facility] 08-19-2022 Functional Status No [facility] 07-01-2022 Functional Status No [facility] Clinical Notes 08-09-2021 to 08-12-2022 LaboratoryRadiologyLaboratory Note Date & Type Note Facility 08-12-2022 Note Echocardiology Procedure Exam Date/Time Accession # Ordering Dr. Gonzales Transthoracic 08/12/2022 09:28 [facility] [id number] Connor RAMSEY, Cralton Lowe Complete CPT code 04373 02899 Reason for Exam (Echo Transthoracic Complete) R06.09;Dyspnea Report [facility] [address] [place] [address] Adult Echocardiogram Report Name: KAY PASCAL Study Date: 08/12/2022 08:26 AM BP: 128/66 mmHg Patient Location: [facility] HR: 59 : 1955 Gender: Female Height: 63.5 in Age: 67 yrs Ethnicity: WHT Weight: 240 lb Reason For Study: Dyspnea BSA: 2.1 m2 History: HTN,Smoker-Quit,SOB,Murmur,Morb id obesity Ordering Physician: Connor^Carlton^J Referring Physician: Carlton Ryan Performed By: Rajani Donaldson [facility] Interpretation Summary Ejection Fraction = 60-65%. Grade I diastolic dysfunction, (abnormal relaxation pattern). The left ventricular wall motion is normal. Moderate valvular aortic stenosis. Mild aortic regurgitation. There is mild tricuspid regurgitation. Estimated RVSP is moderately elevated at 47 mmHg. In comparison echo report dated 03/01/2019, peak/mean aortic valve has worsened and the mean gradient has increased from 16 to 27 mmHg. There is a typo on the report from 03/01/2019. The mean gradient was not 60 but rather 16. RVSP was not calculated at that time. Procedure A complete two-dimensional transthoracic echocardiogram was performed (2D, M-mode, spectral and color flow Doppler). Study quality is adequate. I WMSI = 1.00 % Normal = 100 Segments Size X - Cannot 2 - 1-2 small Interpret 1 - Normal Hypokinetic 3 - Akinetic 4 - Dyskinetic3-5 moderate Echocardiology Report 5 - Aneurysmal 6-14 large 15-16 diffuse Left Ventricle The left ventricle is normal in size. Ejection Fraction = 60-65%. The left ventricular wall motion is normal. Grade I diastolic dysfunction, (abnormal relaxation pattern). Left Atrium The left atrial size is normal. Right Atrium Right atrial size is normal. Right Ventricle The right ventricular systolic function is normal. Aortic Valve The aortic valve is trileaflet. Diffuse thickening with restricted cusp opening. Mild aortic regurgitation. Moderate valvular aortic stenosis. Mitral Valve Mitral valve structure is normal. Tricuspid Valve Structurally normal tricuspid valve. There is mild tricuspid regurgitation. Estimated RVSP is moderately elevated at 47 mmHg. Pulmonic Valve The pulmonic valve is normal. Arteries The aortic root is normal in size. Venous The inferior vena cava is normal in size, and collapses normally with respiration. Effusion There is no pericardial effusion. MMode/2D Measurements & Calculations RVDd: 3.9 cm LVIDd: 5.0 cm FS: 40.2 % Ao root diam: 3.1 cm IVSd: 0.97 cm LVIDs: 3.0 cm EDV(Teich): 119.5 ml Ao root area: 7.6 cm2 LVPWd: 1.1 cm ESV(Teich): 35.1 ml LA dimension: 6.2 cm EF(Teich): 70.6 % asc Aorta Diam: 3.4 cm LVOT diam: 2.0 cm LVLd ap4: 8.9 cm EDV(MOD-sp2): 141.0 ml LVOT area: 3.2 cm2 EDV(MOD-sp4): 133.0 ml ESV(MOD-sp2): 35.8 ml LVLs ap4: 5.7 cm EF(MOD-sp2): 74.6 % ESV(MOD-sp4): 34.8 ml EF(MOD-sp4): 73.8 % Echocardiology Report SV(MOD-sp4): 98.2 ml TAPSE: 3.5 cm IVC Diam: 2.1 cm RVIDd/LVIDd: 0.77 EF (MOD-bp): 72.0 % Doppler Measurements & Calculations MV E max julio: 73.7 cm/sec MV dec time: 0.31 sec Ao V2 max: 378.6 cm/sec AI max julio: 444.9 cm/sec MV A max julio: 97.3 cm/sec Ao max P.3 mmHg AI max P.2 mmHg MV E/A: 0.76 Ao V2 mean: 238.2 cm/sec AI dec slope: 168.5 cm/sec2 Lat Peak E' Julio: 3.3 cm/sec Ao mean P.6 mmHg AI P1/2t: 773.3 msec E/E' Lat: 22.6 Ao V2 VTI: 84.9 cm Med Peak E' Julio: 3.4 cm/sec ZACHARY(I,D): 1.1 cm2 E/E' Med: 21.9 ZACHARY(V,D): 1.1 cm2 LV V1 max P.5 mmHg SV(LVOT): 91.3 ml TR max julio: 314.9 cm/sec RAP systole: 3.0 mmHg LV V1 mean P.4 mmHg TR max P.7 mmHg LV V1 max: 127.3 cm/sec RVSP(TR): 42.7 mmHg LV V1 mean: 86.3 cm/sec LV V1 VTI: 28.7 cm AV P1/2t-pr: 773.3 msec AV VR: 0.34 FINAL REPORT Dictated: 08/12/2022 8:26 am Carlton Ryan MD Signed (Electronic Signature): 08/12/2022 11:00 am Signed by: Carlton Ryan MD Transcribed by: SAPPHIRE Technologist: DEBORAH [facility] 07-05-2022 Hospital Discharg e instructions Follow Up Care 07/05/2022 09:28:33 With:Carlton Ryan MD Address: [address] [place], [place] [address] [address] [phone] When:6 months [facility] 07-01-2022 Evaluation + Plan note Future Scheduled TestsLipid Panel 07/01/22US LE Venous Duplex Insufficiency Bilat 08/19/22 [facility] 07-01-2022 Evaluation + Plan note Future Scheduled TestsLipid Panel 07/01/22 [facility] 10-01-2021 Evaluation note Encounter Date Diagnosis Assessment Notes Sep, Acute pain of left knee (ICD-10 - M25.562) Sep, Mass of left knee (ICD-10 - R22.42) Patient not having any issues at this time. She will contact office if any changes for MRI [facility] Other 04-25-2022 NoteCLINICAL DATA: Follow-up knee replacement. Progressive pain with weightbearing.[employer] [facility] [employer] Other 04-06-2022 NoteHISTORY: Bone density screening COMPARISON: None. PROCEDURE: Imaging of the lumbar spine and bilateral hips was obtained for bone density evaluation. FINDINGS: REGION BMD (g/cm??) YOUNG ADULT T-SCORE AGE-MATCHED Z-SCORE LEFT NECK 0.829 -0.2 1.4 RIGHT NECK 0.763 -0.8 0.8 LUMBAR (L1-L4) 1.108 0.6 2.3 The mean BMD and corresponding T-score listed above indicates: Normal Bone Mass and places the patient at no significant risk for fracture. This information can serve as a baseline with which to compare future studies. Recommend follow-up exam in 2 years, sooner as clinically necessary. Comment: The T-score is the primary focus of the interpretation of a patient???s bone mineral density measurement. The T-score is the number of standard deviations and individual is above or below the mean value for a young female having normal bone mass. The WHO defines osteoporosis based on the T-score value: +1.0 to -0.9 : Normal bone mass -1.0 to -2.5 : Osteopenia and thus may be at future risk of fracture. -2.6 to -5.0 : Osteoporosis and at significantly increased risk of fracture. IMPRESSION: NORMAL BONE MASS : TWO YEAR FOLLOW-UP RECOMMENDED Report reported and signed by Carlton Granado on 09/13/2021 [id number] Evaluation note* Encounter Date Diagnosis Assessment Notes Treatment Notes Treatment Clinical Notes Aug, Obstructive sleep apnea (ICD-10 - G47.33) Fortunately the patient is using and benefiting from treatment. Download was reviewed with patient, Current pressure is controlling apnea well, And we will make no changes at this time. We did troubleshoot some issues with dry mouth, including getting a chin strap or a mask that covers the nose and mouth, which may also resolve some of the leak issues that are showing on the download. She was encouraged to continue to use her machine nightly, throughout the entire night and for naps as this does provide clinical benefit. She will follow-up in the sleep clinic in 1 year or sooner if problems. Aug, BMI 50.0-59.9, adult (ICD-10 - Z68.43) Weight reduction would be broadly beneficial and is overall the best and healthiest way to address sleep apnea. We discussed the benefits of weight control as a long-term resolution to KHANH. Weight loss strategies were reviewed in detail, including decreased overall caloric intake quantity, better food choices and portion control. Aug, Essential hypertension (ICD-10 - I10) Blood pressure control frequently improves with control of sleep apnea, and effective treatment of the apnea may minimize medications required for control. Pt reports good control of her BP with meds and continues to follow with her PCP for this. Aug, Other Call if any questions or problems. Patient is advised to work on healthy diet choices and appropriate servings, weight control, regular exercise as directed, and reduce fat intake. Use machine regularly, and keep up with mask changes as needed. Call if problems with mask toleration, increased sleepiness, or poor response to treatment. . [facility] Other Evaluation + Plan note Future Appointments Appointment Date:07/22/2022 09:00:00 AM Scheduled Provider:Mara Evans MD Location:[facility] Appointment Type:Vascular New Patient ([facility]) Future Scheduled Tests Laboratory* Lipid Panel 07/01/22 Radiology* EC Stress Echo Complete w/ Contrast 07/01/22 * Echo Tran[facility]horacic [facility]ments Appointment Date:08/14/2022 01:00:00 PM Scheduled Provider:Shira MCCURDY CNP Location:[facility] Appointment Type:Cardiology Follow Up ([facility]) Appointment Date:08/19/2022 11:30:00 AM Scheduled Provider:Mara Evans MD Location:[facility] Appointment Type:Vascular Follow Up ([facility]) Future Scheduled Tests Laboratory* Lipid Panel [facility]01/22 [facility] - [facility]orted* Type Description Date Medical History DM Medical History Depression/Anxiety Medical History HTN Medical History Cardiac Syndrome X Medical History KHANH Surgical History Left arm 2008 Surgical History Lap Cholecystectomy 2004 Surgical History 1980 Surgical History Bilateral tubal ligation 1980 Surgical History knee replacement, partial, righ t Mar 2015 Hospitalization History Heart Event 2011 Hospitalization History Bowel issues 1982 [facility] [employer] Other Hospital course Narrative No data available for this section [facility] No data available for this section [facility] No data available for this section [facility] Summary Purpose Family History No Family History Records FoundNo Family History Records FoundNo Family History Records FoundNo Family History Records FoundNo Family History Records FoundNo Family History Records Found Advance Directives No Advanced Directives Records FoundNo Advanced Directives Records FoundNo Advanced Directives Records FoundNo Advanced Directives Records FoundNo Advanced Directives Records FoundNo Advanced Directives Records Found Additional Source Comments INFORMATION SOURCE (unrecogn ized section and content) DATE CREATED AUTHOR 12/12/2017 [facility] DATE CREATED AUTHOR AUTHOR'S ORGANIZ ATION 03/04/2020 [facility] DATE CREATED AUTHOR AUTHOR'S ORGANIZ ATION 10/05/2021 [facility] dical Specialist DATE CREATED AUTHOR AUTHOR'S ORGANIZ ATION 10/09/2021 [facility] DATE CREATED AUTHOR AUTHOR'S ORGANIZ ATION 10/16/2022 Ahuja Jamie [facility] DATE CREATED AUTHOR AUTHOR'S ORGANIZ ATION 05/20/2023 [facility] dical Specialists EPIC REASON FOR VISIT (unrecogniz ed section and content) follow upLeft Knee Pain Patient Care team informatio n (unrecognized section and content) Personnel Name: SHIVA TURNER DO Address: Address: [address] [place] [address] Personnel Name: SHIVA TURNER DO Address: Address: [address] [place] [address] Personnel Name: SHIVA TURNER DO [facility] [address] Personnel Name: SHIVA TURNER DO Address: Address: [address] [place] [address] Personnel Name: SHIVA TURNER DO Address: Address: [address] [place] [address] Personnel Name: SHIVA TURNER DO Address: Address: [address] [place] [address] FOR RECORDS PERTAINING TO PATIENTS WHO ARE OR HAVE BEEN ENROLLED IN A CHEMICAL DEPENDENCY/SUBSTANCEABUSE PROGRAM, SOME INFORMATION MAY BE OMITTED. This clinical summary was aggregated from multiple sources. Caution should be exercised in using it in the provision of clinical care. This summary normalizes information from multiple sources, and as a consequence, information in this document may materially change the coding, format and clinical context of patient data. In addition, data may be omitted in some cases. CLINICAL DECISIONS SHOULD BE BASED ON THE PRIMARY CLINICAL RECORDS. [facility] [employer] [facility]. provides no warranty or guarantee of the accuracy or completeness of information in this document.
== END 2023-05-28 07:24 | disposition home or self-care (01) ==
LOC: VC 07:23
PROVIDERS: PCP Radiology Diagnostic Radiology; Visit Provider Radiology Diagnostic Radiology
DX: I83.813 Varicose veins of bilateral lower extremities with pain (principal)
CPT/HCPCS: 36466

== ENCOUNTER 2023-06-04 08:03 | Outpatient (OUT) | payer MEDICARE, OTHER, SELFPAY ==
--- NOTE | 2023-06-04 08:05 | VEIN_ITS ---
Patient Name: MARLON PASCAL MR#: [id number] : 1955 Exam Date: 06/04/2023 Ordering Doctor: DR AMY VU M.D. RADIOLOGY REPORT PROCEDURE: VC EXT VENOUS LT LIMITED COMPARISON: VC EXT VENOUS LT LIMITED, 05/26/2023. INDICATIONS: Phlebitis of superficial veins of lt lower extremity I80.02 TECHNIQUE: Lower extremity senior scale and Duplex Doppler evaluation of the deep venous system from the inguinal ligament through the calf veins. FINDINGS: REGION: Left lower extremity. THROMBI: Negative for DVT. Varithena induced thrombus visualized at dist/lat calf, medial knee, and ant/mid thigh. COMPRESSIBILITY: Non-compressible segments corresponding to thrombus FLOW: Areas of no flow corresponding to thrombus OTHER: No patent varicose veins remain. CONCLUSION: 1. Successful post ablation occlusion of left leg treated varicosities. Dictated by: Edin Garrido M.D. on 06/04/2023 at 09:41 Approved by: Edin Garrido M.D. on 06/04/2023 at 09:44
--- NOTE | 2023-06-04 08:05 | VEIN_ITS ---
Patient Name: MARLON PASCAL MR#: [id number] : 1955 Exam Date: 06/04/2023 Ordering Doctor: DR AMY VU M.D. RADIOLOGY REPORT PROCEDURE: [facility] - OFFICE VISIT FOLLOW UP [facility] PROGRESS NOTES: The patient reports improvement in leg symptoms. There has been interval reduction in varicosities. The patient has followed our recommendations to walk 20-30 minutes once or twice per day since the procedure. Physical exam demonstrates decrease in varicosities of the leg. No appreciable remaining superficial varicosities. A few scattered spider veins are noted. Review of the ultrasound performed the same day demonstrates occlusive thrombus extending throughout the treated vein(s), see separate report, consistent with a successful ablation. No thrombus extending into or beyond the saphenofemoral junction. VEIN/[facility] EST TD IMPRESSION: 1. Successful ablation of the treated left leg branch saphenous vein(s). 2. No remaining superficial varicosities. 3. A few scattered spider veins bilaterally. PLAN: 1. Patient will be traveling [facility] to for the winter and will reassess legs bone return in August. Patient will contact us if she desires treatment of remaining spider veins. Nurse notes, history and physical were reviewed and confirmed, see attached forms. The nurse was present throughout the physical exam and consultation Dictated by: Edin Garrido M.D. on 06/04/2023 at 09:44 Approved by: Edin Garrido M.D. on 06/04/2023 at 09:46
== END 2023-06-04 08:04 | disposition home or self-care (01) ==
LOC: VC 08:04
PROVIDERS: PCP Radiology Diagnostic Radiology; Visit Provider Radiology Diagnostic Radiology
DX: I80.02 Phlebitis and thrombophlebitis of superficial vessels of left lower extremity (principal)
CPT/HCPCS: 93971; G0463

== ENCOUNTER 2024-03-17 17:08 | Emergency (ER) | payer MEDICARE, OTHER, SELFPAY ==
[2024-03-17] VITALS (10 sets, daily range): BP systolic 151–166; BP diastolic 71–81; PULSE 62–99; TEMP 36.7; O2SAT 92–96; BMI 50.5
--- OUTSIDE RECORDS SUMMARY | 2024-03-17 17:19 | XMS_ITS | CCD ---
Author Organization [facility] Care Team Providers [employer] Counsel[employer] Name Role Phone JOSE CLAYTONAN Unavailable Unavailab SHIVA Rios Unavailable Unavailab FARIDA Owen Admitting Unavailable FARIDA WILLAMS Attending Unavailable MISC, DOCTOR Primary Care Unavailable FARIDA WILLAMS Consulting Unavailable AMY VU V Admitting Unavailable AMY VU V Attending Unavailable AMY VU V Consulting Unavailable TI GARRIDO Consulting Unavailable Anabel Kyle Unavailable Elizabeth Warner Unavailable SHIVA TURNER Primary Care Physician NONE, XXXX Referring Unavailable Nathan, Mohamed F. [...] Unavailable Nathan, Mohamed F. Admitting Unavailable Nathan, Mara FLaurita Attending Unavailable SHIVA TURNER Referring Unavailable SHIVA TURNER Primary Care Unavailable SHIVA TURNER Referring Unavailable SHIVA TURNER Primary Care Unavailable POOJA DE LEÓN Attending Unavailable SHIVA TURNER Referring Unavailable SHIVA TURNER Primary Care Unavailable POOJA DE LEÓN Attending Unavailable POOJA DE LEÓN Referring Unavailable JULIASHIVA PEREZ Primary Care Unavailable JULIASHIVA PEREZ Attending Unavailable SHIVA TURNER Referring Unavailable BRITNIPavel SHIVA Lowe Referring Unavailable SKY WEEKSIN E Referring Unavailable SHIVA TURNER Mynor Referring Unavailable DESI BHUMI E Referring Unavailable SHIVA TURNER Mynor Referring Unavailable DESI, BHUMI E Attending Unavailable SKY WEEKSIN E Referring Unavailable SHIVA TURNER Mynor Attending Unavailable SHIVA TURNER Referring Unavailable SHIVA TURNER Referring Unavailable SHIVA TURNER Referring Unavailable Allergies Allergy Classification Reported Allergen(s) Allergy Type Date of Onset Reaction(s) Facility (5 sources) azithromycin; Translations: [AZITHROMYCIN] Drug Allergy 10-25-19 12 [facility] Repository (3 sources) celecoxib; Translations: [CELECOXIB] Drug Allergy 10-25-19 12 [facility] Repository (13 sources) codeine; Translations: [CODEINE] Drug Allergy 10-25-19 12 [facility] Repository (12 sources) erythromycin; Translations: [ERYTHROMYCIN] Drug Allergy 06-28-19 16 [facility] Repository (11 sources) Penicillins; Translations: [PENICILLINS] Propensity to adverse reactions to drug (disorder) 10-25-19 12 [facility] Repository (3 sources) silver nitrate; Translations: [SILVER NITRATE] Drug Allergy 10-25-19 12 [facility] Repository (3 sources) Sulfonamides (Antibiotic); Translations: [SULFA (SULFONAMIDE ANTIBIOTICS)] Propensity to adverse reactions to drug (disorder) 10-25-19 12 [facility] Repository (1 source) Erythromycin Drug Allergy 02-03-20 13 [facility] Repository (1 source) Sulfonamides (Antibiotic) Drug allergy (disorder) 02-03-20 13 [facility] Repository (2 sources) penicillAMINE Drug Allergy almost as a child [facility] Other (2 sources) Sulfacetamide Drug Allergy rash and hives [facility] [employer] Other (7 sources) Meperidine; Translations: [meperidine] Drug Allergy [facility] (7 sources) Sulfonamides (Antibiotic); Translations: [sulfa drugs] Drug allergy [facility] Medications Current Medications Medication Drug Class(es) [...] 12/08/14 Status: Ordered take 1 capsule by [facility] every twenty-four hours Effexor XR 75 MG [...] Translations: [Unspecified asthma with (acute) exacerbation] Chronic Congestive heart failure; nonhypertensive (1 source) Chronic diastolic (congestive) heart failure; Translations: [Chronic diastolic (congestive) heart failure] Onset: 4 Chronic Esophageal disorders (2 sources) Gastroesophageal reflux disease; Translations: [Gastro-esophageal reflux disease without esophagitis] Chronic Essential hypertension (3 sources) Essential hypertension; Translations: [Essential (primary) hypertension] Onset: 2 Resolved: 2 Chronic Heart valve disorders (2 sources) Aortic stenosis, non-rheumatic ; Translations: [Nonrheumatic aortic [...] disorders (6 sources) Morbid obesity 03-28-2019 Chronic Pulmonary heart disease (1 source) Pulmonary hypertension, unspecified; Translations: [Pulmonary hypertension, unspecified] Onset: 4 Chronic Residual codes; unclassified (2 sources) Obstructive sleep apnea syndrome; Translations: [Obstructive sleep apnea (adult) (pediatric)] Chronic Residual codes; unclassified (1 source) Obstructive sleep apnea (adult) (pediatric) Onset: 2 Resolved: 2 Chronic Residual codes; unclassified (1 source) Pain, unspecified; Translations: [Pain, unspecified] Onset: 4 Episodic Unclassified (1 source) New Patient Onset: 4 Varicose veins of lower extremity (10 sources) [...] Results Test Name Value Interpretation Reference Range Facility BI MAMMOGRAM DIAGNOSTIC OLGA LIDIA SYNTHESIS LEFTon 02-12-2024 BI MAMMOGRAM DIAGNOSTIC TOMOSYNTHESIS LEFT This is a summary report. The complete report is available in the patient's medical record. If you cannot access the medical record, please contact the sending organization for a detailed fax or copy. EXAMINATION: BI MAMMOGRAM DIAGNOSTIC TOMOSYNTHESIS LEFT CLINICAL HISTORY:left breast mass COMPARISON: October 08, 2023 and September 29, 2023. , RESULT: Density: The breasts are almost entirely fatty Persistent subcentimeter focal asymmetry, not identified on the current ultrasound. On these additional views no underlying nodule, mass, suspicious calcifications or distortion is identified. IMPRESSION: BIRADS 3 - Probably Benign Follow-up: Short Interval Follow-up Recommend follow up bilateral mammography September 2024. Board Certified Radiologists. Accredited by the ACR and FDA. MAMMOGRAPHY IS VERY IMPORTANT TO YOUR HEALTH. THE [employer] GUIDELINES RECOMMEND THAT WOMEN 40 YEARS OF AGE AND OLDER SHOULD HAVE A MAMMOGRAM EVERY YEAR. A REMINDER LETTER WILL BE SENT AT THE APPROPRIATE TIME. THIS FACILITY UTILIZES A REMINDER SYSTEM TO ENSURE ALL PATIENTS RECEIVE REMINDER NOTIFICATIONS AT THE APPROPRIATE TIME BASED ON THE RECOMMENDATIONS OF THIS EXAM. THIS INCLUDES REMINDERS FOR ROUTINE SCREENING MAMMOGRAMS, DIAGNOSTIC MAMMOGRAMS IN WHICH THE PATIENT IS ASKED TO RETURN FOR ADDITIONAL VIEWS, OR OTHER BREAST IMAGING INTERVENTIONS WHEN APPROPRIATE. THE PATIENT WILL BE PLACED IN THE APPROPRIATE REMINDER SYSTEM INCLUDING A REMINDER AT THE APPROPRIATE TIME FOR ANY PENDING ADDITIONAL VIEWS. TRANSCRIBED BY: ELECTRONICALLY SIGNED BY: Bahman Fortune MD Normal Not Available BI US BREAST LIMITED LEFTon 02-12-2024 BI US BREAST LIMITED LEFT This is a summary report. The complete report is available in the patient's medical record. If you cannot access the medical record, please contact the sending organization for a detailed fax or copy. FINDINGS: Sonographic evaluation of the left breast performed correlation made with the same day left breast mammogram and prior mammogram/ultrasound of October 08, 2023 and September 28 Persistent subcentimeter focal asymmetry, not identified on this current ultrasound. Hypoechogenic structure 2 o'clock location identified on prior examination 4.0 cm from the nipple is no longer seen. IMPRESSION: BI-RADS 3- Probably Benign. Follow-up: Short Interval Follow-up Recommend follow up bilateral mammography September 2024. TRANSCRIBED BY: ELECTRONICALLY SIGNED BY: Bahman Fortune MD Normal Not Available BI MAMMOGRAM DIAGNOSTIC OLGA LIDIA SYNTHESIS LEFTon 10-08-2023 BI MAMMOGRAM DIAGNOSTIC TOMOSYNTHESIS LEFT This is a summary report. The complete report is available in the patient's medical record. If you cannot access the medical record, please contact the sending organization for a detailed fax or copy. EXAMINATION: BI MAMMOGRAM DIAGNOSTIC TOMOSYNTHESIS LEFT CLINICAL HISTORY:Callback COMPARISON: September 29, 2023. RESULT: Additional views of the left breast were performed Density: Almost entirely fatty [1] Persistent focal asymmetry upper outer quadrant, no underlying distortion or suspicious microcalcifications. IMPRESSION: BIRADS 3 - Probably Benign. Please see ultrasound report. Follow-up: Short Interval Follow-up Recommend follow-up left breast mammography and ultrasonography in 4 months Board Certified Radiologists. Accredited by the ACR and FDA. MAMMOGRAPHY IS VERY IMPORTANT TO YOUR HEALTH. THE [employer] GUIDELINES RECOMMEND THAT WOMEN 40 YEARS OF AGE AND OLDER SHOULD HAVE A MAMMOGRAM EVERY YEAR. A REMINDER LETTER WILL BE SENT AT THE APPROPRIATE TIME. THIS FACILITY UTILIZES A REMINDER SYSTEM TO ENSURE ALL PATIENTS RECEIVE REMINDER NOTIFICATIONS AT THE APPROPRIATE TIME BASED ON THE RECOMMENDATIONS OF THIS EXAM. THIS INCLUDES REMINDERS FOR ROUTINE SCREENING MAMMOGRAMS, DIAGNOSTIC MAMMOGRAMS IN WHICH THE PATIENT IS ASKED TO RETURN FOR ADDITIONAL VIEWS, OR OTHER BREAST IMAGING INTERVENTIONS WHEN APPROPRIATE. THE PATIENT WILL BE PLACED IN THE APPROPRIATE REMINDER SYSTEM INCLUDING A REMINDER AT THE APPROPRIATE TIME FOR ANY PENDING ADDITIONAL VIEWS. TRANSCRIBED BY: ELECTRONICALLY SIGNED BY: Bahman Fortune MD Normal Not Available BI MAMMOGRAM SCREENING TOMOS YNTHESIS BILATERALon 09-29-2023 BI MAMMOGRAM SCREENING TOMOSYNTHESIS BILATERAL This is a summary report. The complete report is available in the patient's medical record. If you cannot access the medical record, please contact the sending organization for a detailed fax or copy. EXAMINATION: BI MAMMOGRAM SCREENING TOMOSYNTHESIS BILATERAL CLINICAL HISTORY:Breast cancer screening COMPARISON: September 25, 2022. RESULT: Digital mammography and 3D tomosynthesis of bilateral breasts was performed. Density: Almost entirely fatty [1] RIGHT BREAST: Stable. There is no suspicious mass, asymmetry, architectural distortion, or calcification. Typically benign calcifications. LEFT BREAST: 6 x 6 mm equal density mass upper outer breast posterior depth, slight increase in size from the prior exam (3-4 mm). No surrounding distortion. No significant axillary lymphadenopathy. IMPRESSION: BIRADS 0 - Need Additional Imaging Evaluation Follow-up: Short Interval Follow-up Recommend ultrasound upper outer quadrant, spot compression views if benign cyst formation does not account for this finding. Board Certified Radiologists. Accredited by the ACR and FDA. MAMMOGRAPHY IS VERY IMPORTANT TO YOUR HEALTH. THE [employer] GUIDELINES RECOMMEND THAT WOMEN 40 YEARS OF AGE AND OLDER SHOULD HAVE A MAMMOGRAM EVERY YEAR. A REMINDER LETTER WILL BE SENT AT THE APPROPRIATE TIME. THIS FACILITY UTILIZES A REMINDER SYSTEM TO ENSURE ALL PATIENTS RECEIVE REMINDER NOTIFICATIONS AT THE APPROPRIATE TIME BASED ON THE RECOMMENDATIONS OF THIS EXAM. THIS INCLUDES REMINDERS FOR ROUTINE SCREENING MAMMOGRAMS, DIAGNOSTIC MAMMOGRAMS IN WHICH THE PATIENT IS ASKED TO RETURN FOR ADDITIONAL VIEWS, OR OTHER BREAST IMAGING INTERVENTIONS WHEN APPROPRIATE. THE PATIENT WILL BE PLACED IN THE APPROPRIATE REMINDER SYSTEM INCLUDING A REMINDER AT THE APPROPRIATE TIME FOR ANY PENDING ADDITIONAL VIEWS. TRANSCRIBED BY: ELECTRONICALLY SIGNED BY: Bahman Fortune MD Abnormal Not Available XR CHEST 2 VIEWSon 4 XR CHEST 2 VIEWS EXAMINATION: XR CHES T 2 VIEWS HISTORY: Cough TECHNIQUE: Frontal and lateral views of the chest. COMPARISON: None available FINDINGS: Atherosclerotic calcification of the thoracic aorta. Heart size is enlarged. No pneumothorax, pleural effusion, or consolidation. Hyperinflation of the lungs and increased bronchovascular marking suggesting COPD. Degenerative changes of the spine no acute osseous abnormality. IMPRESSION: Cardiomegaly. Findings suggesting COPD. ELECTRONICALLY SIGNED BY: Shiva J Arcelia, DO Normal Not Available Coding Summary.on 10-15-2022 Coding Summary. CD:[id number] Ww+PG hlYWQ+BT7RDHYqV96qbMXccG7 qQ5AFRCcSLhegKYKMURxPFbHj jsZnDC7edBMyGCZe IC8+SA0uEUIsNzlqaVBzn0A6e NC9N00bnb8vFGwvyCX9BHDxTp Inconmo7lpgOu9OGbkZjguQbM t XYDjnW23QQY2kT74Ma80hBYzz UTcf7lrjPf0MfWxCQMcBGA2aG ewLFmyg9QdHABmP31ktAYpl9U 6 CTNsqNzsdVYbEvZduYA6gG7iH Neuvjeqj0piejtcXme0xt40rG Bko1P6wYQ6N9XdrpD9XTXjoPG g UfpwgSMOcI9wclmmp2vmocxnA xNlVSPfJQq9SEe9DFOgmOtuMi BbSO28BYH2OZSxdvXfA6IvASF s nFrdVbQ5j2H2Ai3EE9UJColtJ 1VNTUFSWTwvdGQ+EN45st59Q9 XuKdqdVpk9SDKsXOJ2lSJ1sU7 n LWZbHAqed0E3bZU9T1UsvcZsc k6fr3vuQYKwQDnfO79uiNCgv9 V5YQAsqOL6ZGDmxCzrHnIvxZ7 3 Oyc+JQShoBeth8BoNtvso5rqd 1fwyVb2UtbcFTBicrWguArdIN Z1w6DlRj6wLUDkaBC2fGS9nC1 i TuFjEoC5MTpzB724VhEywUDpB kdiH81cA5GvmPP+CUNyIfr7IR JcaMarUS9zG6MeYYJxdukgdPG m xEltEA4uCXGxjsrrMPNgeD7mS DXbD1z3CyTsTvL7ZSfiK0DoMF IzqdxhEx31xA4iEpZbZgI6EAb u R9IqboK4LEFyyUArOIrdVYE0D 29th8T0MLBiVPVmXQD3kPP6yB 1hbGlnbjogbGVmdDsgdmVydGl j NJbjFRkpF833VLHmhDqnNmMpE GluZyBEYXRlOiAgMDUvMDkvMj AyMzwvdGQ+BYYhIUI2mGkxYRI n rBAaUFlmQe6obVproNkrAX5iO RStzjbsLDLugZ1pWZMimZVpfL saIV2kDHLvvmltz778JtSlULR 0 WHAzcGJwS1HodN1pLcJdQAHhN NVlY3ZwtKIxUQsoK115VBpdJd G2SJNeidYbN0EvYTDhlUxrAnA 0 k5I8Cb9Ls2QukfidA3WfrVVmT sIyMrhbFEc6C5MbVrqweCZ+PC 19PCUiBW03MVb5LRN6vVtcYNv i HMRjF7IbbK4gVqPcAOEwEASrN yc+PHRhYmxlIHdpZHRoPScxMD FySxQhqKjoXA0vIo6tKNDhPED v eYoraEBkYeRlo8rqAYOfSCwrO V2bmSyfL4EewYO0TBFtm9m7Mj 73R96qN4CxpDZ+RZShoAM8eXN 0 xO4tXeHwCsH3GHroW169FzEds YZaPllqg8szz5zerLm0KqX7KA FplhDozJzcMRF1i6YsUh43Q51 s IHdpZHRoPSIxNSUiIHZhbGlnb r5daD0jAs4+RKRzzZW6kOL6lI 2dTyZdUhB7XNciG949TuAxvQW v Cpsgw1xcj7abwGv0CoDzDLEej bSdsVmpBWV5r7MzPf13A1HycI hmh0MbVri3hj14nDWtz2Y0nVH 9 J2QaUWRrcatsrDGdzFreMA2jQ XFxoltuFOEdiH7rFSStT9c5Ku IhXbQ8UBwlT3HshrP4BDSttUJ g LFPbzJYIrD3nshkbo0bssijzR aZtLVSgIKd7FNe0VKAnjViiCy TgUWL4WqV7DIT2jOKypS1itFp n dzulqU4zPhh+XCR7vWHipGYKE S0qWyehsIS+IESvJBY1gLmyPZ gxMDRvoS5jBTZfV4k1NqEkMkF 1 PBuyD3MtycD7GQPkqCVjUWVjp QQQuW3fhpzni7hcwiohAeHkPJ RoMAf4MBv2CKXaaTmfHdZlYMH 0 XpF0QWA2tJEsiC6gmEabdmako G9wOyc+IkjkkIdbJDL4XDd9X7 FaPbd8PTAnyCkbZQ2dqPDvNGh u Bs9zxPexoTotZS0hQPZbaxops 290RcCit7nqFHOwlKJaEVreOP N1Q16hm3N8YYOiAVFqMAB6aUE 4 sP8cyHpndjsnvEQfdQhgzpLqq GjeONfpFXoxV093FBAjpKowQp ImIGk8M3XnBfg2ELQxmUyeRI0 n uAZtWHnoFv0ngIplkHibOR5aO JCorbynb460WvDxj7xsZZJuhP YlKYgxGQU1R14xa7X3TRRsDLN w NUJ5bKK8yF0llYgcyrrhnXVtr GhykxVhvWiqYAmdFEhsJ472ZE BawPkqVaHvyYn8M6BwFpm6IDM z xVwgNV3wjNTyQJtnGo1mvFxxd KmsAN8oMDOwmnobt273HbWut9 gvACFomAQgYAcpKPZ9Y38mh9Q 6 DQMeLYPaMFW5lMY6sA4edPabv jogbGVmdDsgdmVydGljYWwtYW dmU943RLYtdIefQtKbvEesdwE g BJjtSOs5Y4RvRopybWP+PC90Y ZEwIS11iEUitARls2ublQp6Yl DyXHEyRKV0cUcvSHxcj8WgERO t Z13ldZGol1E1NSXjsBmtvJGkK lWquMJ7mJ7hAWlfbsgvg2mvet oaMfylx3bxqe55rN32F34hHWg p VMQmOTWwYNLkLGCybAmqqe2te G9wIi8+EYXkmBY9gSO0qG0bHB VaVaH3OCkxP819JyArpACnFpp j g0fsr3pclMv9YfC9VDNmkxUzo LycSTM5g7HyGd96Z77iXKswOU CvSCMbLTPiOOIicJuhkg0txP3 w Ii8+OJBaxQU1pGS7bS6bBmKjW qZ7XMnqR657VqCppAPgBsbkQ4 9qL9HoaEM+MOIfHwi7ISEcjBq s OZ5qmAQcGHotNp4cVAL4CzBzJ lKvVMgbR7AzDMSwmdqqxjtcpI A2SIZvPCLlbP12Ue8gmGdtMGG w tLEJwK6ulwctn2jvoafeFpUhS XIqHOu9KFv0JDTllZtyTeRzRA X9XhS4LFH3aDHkdL5ojUiktyj g iN0rB2HbEOJjxhntKl09rB3jG lFsXaD5FOulScf+RElDSywgUE RUILnRLHD4E7TgNzb8JXEzbIl s WY6ydDJsWBapIy3rhQcqfIqzE W6lTKOpoimzBWUroJ3nSVZbhQ ZlxEajCS8yWFWxaefga719WjT x CFV4GCDacOXkB5QbkE0yHkWtC UPeGOZiI2YgkDOwKGosO821QO jgUhQ2DONympKiA2JbFPLgiVf u EmP0r7U0To3eDE8yIY5qKAU8D M10AQ40yQFwt0L1rBY6L4DhMT KkztigzffncYN7ZKMxSYNqrX9 7 tXWgIQvmQn3js8T3p075ORLgJ MOohL99Ow7bxTigTCCrpCZMvE 5zmhevr6ossczsHyKkSYWuJSr 0 GCq5ELQjdAkaQxZiBZF4AwJ3Q WS3aEWuwQ2mzHwvoblrlY7hTj c+ArEkKUBbpiU7L3NeIkk2AUZ z cHsbES7ulUWrWAeoLn2zpLdjy UprOL3kWFTcovxzCKNysI5mGE ZwbJUjrPunTM3iMNGpackzs55 0 CxJxLME5VJFhfJYfW5MubH4sB jRfTFXeCCByN3JnmTYpIYknE0 22YXeaIwV6TEYwfyLgA6GnPJB s zGxoDoL3e6F3Vk0TSE6keJV8R 6ObUvq9FNDwiVyjYV3onNAxHZ bpWo4jhOpwjYgpSS7rRRUmbpp w MRUgbF2fJSNqxZFgjHevIA0tX NCsrqstb316AtGmSEP8EVGlqY YlA0CyeS4rLdFlTJCaQMUsD7F l wGRoPBlwD325KJmsGxC9LNSsz bJsP4TcJRNyrLfvXcV5z6V4Ox 3IgEOuOXQmOF29WD98WL35H9P y PjwvdGFibGU+PHRhYmxlIHdpZ ZTlMCakKKGfWcFzaAcpVC1wZi 0tWDEyVKNjpOwmqKIdDnMef4o s LWTaDVqvSX3olXpoS6HygUC7U DHar3e1Jg34U11iG0XyaUC+PG ZwrSI2hXN0zR7lSuZvVwL5HUr p F400JwXhbGBiSibxw0tld5olt Hi9YkFlPKGikeTsxZmxLWO2i7 AsPn87X58vJYheBYAxAJZsKEV i LMKmgFqrso4gtK8hBk1+PGNvb ZC9dRK3iL6jAhFpLdD0ZLvwG4 38AyMqxQJyYxagN96fT3ZlgQG + GITmNld6OJIucXxdAB9cbPQuB ZlqGn3bSHW5UrAxHlWtZLyyM2 YqWOLrxdiiglzfqJR3AHAqMJB w xY91Dq8gpLyiKu5kZRReADY9C UTukTDfR8EbgI6oJiRxJJLmOV LaI9NpbPHwYKoyY445WQklHiF 7 HNGrhqFqF5MnGHUioVitSdM4l 0L5Lp3NlFseqBPxDY8mPrGxVL r8Q2HmKpt6MNGouUsnXO4fgIF k RAdhSv1vyHlbjZzyPS6cTPNop nkig585GeRdh3gzXRIhcHMfMW yqLPX7K27gs4Y4IIFgMHIkOKN 7 eGR4cL4zlVmurhrtnOIhqWkzu iIboLpbKXvaVWvdT605OIWtuR jhMiVPZmj3Z3UdZyh4WBPeaNi s QZ8xnFKmOAsqDi5vcEyqcOkaP Q9fNIGzjlrgx982UhViz4rbOP JahBUjWHiyRQG7C96vn0B5DOC w AKHxLGN9dOC6dB8weAkgizizr GVmdDsgdmVydGljYWwtYWxpZ2 53APYpgUgbDc8PUig4O7VeAda 0 CGLefBlcET2kkESsWAkqPp9ea HwogBkcHT7iZWNcnotdy624Vv Qow8wsJWMieCZmBVvrXTU4X90 s q3X2EJOqDMXnTGL5tAH3uE9cx GlnbjogbGVmdDsgdmVydGljYW ktYBgkN964JZUueYhhCbTwlGQ y OjwvdGQ+PM61hn37H1NvLgegQ yz7ZLRhXHN3iDF4bZ2bMOEoQH czo9B6hHH0X7YcmsWlgo4dv5a s YXBzZTog (more content not included)... Normal [facility] Physician Orderon 10-15-2022 Physician Order [id number]:1 27 Normal [facility] Consent for Treatmenton Consent for Treatment [id number]:12 7 Normal [facility] Heart and Vascular Office/Cl inic Noteon 10-07-2022 [...] Magnesium oral tablet, 1 tab(s), Oral, Daily hydrochlorothiazide-sohan nolactone 25 mg-25 mg Tab, 1 tab(s), Oral, [...] Father and Brother. Hypertension: Mother and Father. [facility] Comment on above: Result Comment: Elec tronically Signed By: Nathan RAMSEY, Mara Wilson\.br\Date and Time Signed: 10/07/22 12:12 EDT Reminderson 10-07-2022 Reminders - From: Elizabeth Haque MA To: Elizabeth Haque MA; Sent: 10/07/2022 14:27:37 EDT Show up: 12/07/2022 14:27:00 EDT Subject: Ambulatory Reminder Due Date/Time: 01/07/2023 14:27:00 EDT Reminder/Recall Patient needs a 3 month f/u with Dr Evans and ask about the GSV ablation if she wants to proceed. [facility] Physician Orderon 09-13-2022 Physician Order [id number]:1 27 [facility] Coding Summary.on 09-10-2022 Coding Summary. CD:[id number] Ww+PG hlYWQ+ML2LIHWfE88guBWdvM2 hE4SERMkFIukjEAUFURsNJvUw uxLyNB4fkUGqNEIp IC8+SZ2nMBLeUzlwfWDxh4F3e IN5V08kiy0aZBsuoYC5EXUnSb Dgpqjpx0jwvRz1LPvjVmuyTdC t RYIzeV25GQU7iZ12Oa34fJRtl INol7omgCt0XhFoJJYsEXQ5tJ pqSMzcj3CpZCOmV60oaWVxk5Y 6 DCFanNgboUFkNlUmvCV0sS4yR Vuoyzmzb0rgdczvLhr1ok34mK Guu4E4uAT4F4GpwmV2DTUirAZ g DlctdKCBkV9zpncgj1wlbcimZ wPjAWZrJSd4ETw4ZNCwtXdtRa IjGO92ZBW9KJFfmyQyN5RxFRL s tXunWcG6r4Q4Tz8KL4ZUMpttF 1VNTUFSWTwvdGQ+IG70jc90Q5 ZwOpjeQgi6DNLuWOP7mPF8qE6 n QAErNZuem6F0oJT6V5LtuwIkg v1aq6gaWDPzTJrjU59loRMps9 C8SZDhjLB7UBUisAgsYeJgtH8 3 Oyc+HDWivUzml7CdHibdx2xxw 2loeVq9SoeuIODnhvYopJhfIT P5u0PlSk3tOPSdiLF6rOT8cD5 i IqOmZhN1FJrsO828FvBoxTRqM gndM13bV6PbnGG+UTWdHia9CC YndJhkWQ2aU8QkHJQlvvuttGW m rBkzJR5yIDWceczfNLDwhQ4dH KJlQ6i7UoYpNqS2UBcnK1JbTJ CufcufSl03mX9eOkJhWeY1BDp u B9FtayB7RUAupAGhIRnhNNA9W 99nm2N2CYThQFTnZXZ7bDG8fF 1hbGlnbjogbGVmdDsgdmVydGl j YUbsREhtE114JLQbqWgkMvFvZ GluZyBEYXRlOiAgMDQvMDQvMj AyMzwvdGQ+MSWzIPV8eNmqLZL n eNYiIEfhEd5ujEyzgAtfRK2pY LHxscuwGTYhlO1lKYIkyHUjgZ olQW9zXZOfmjgdw012EzYeFDH 0 ZLHuwNCbV2IrrB5yIuYiPLZrG RBdU4JkvGGaRXyfM937TRhdAf W4KGCpbxGhA7XhBMYbjElnGeU 0 t5K3Oy0Id0HmjlzyY2TulWLoY uSvHtkwCMp4X9NkKyxgtBO+PC 34DWAfVO43NAk8UIN1bNyvSEy i OPFoA4ImaO9fHsGiZNBrCQEkQ yc+PHRhYmxlIHdpZHRoPScxMD VqDwHubEdmBX4vPz6hCYZxBWJ v eXnoqALfLrQep9jtEGUjYXlgU R8ooBmmW5KthCD4IFJwg6y3Cx 85A56xQ7ZmbVC+FFNjyXQ3dLB 0 gX3gAoClNyT7IJkrT821HyJtr KIfCxxfy5obh4aszSx7OfX6RX BwyeYhmHmzBUJ3j9IrZq51E75 s IHdpZHRoPSIxNSUiIHZhbGlnb p2baY8vTa7+YXMfaYD6gOB2lO 1dBtDqOcF4QPlvH965EcUnmYN v Psrqx5prg5qkxKf3DbOfFQYuj aThbQtgDXT6i3YrKq03U2VryQ tqn5ZeYse0ji79kFKuc5N7rSX 9 H4QaTRXorzkcvHTxmKlpWO5qE NOsmrdtFPQlbQ1cEWHzZ4s8Fa QaWqL0OSgeV6UwmrJ3SFBbkXF g YIZdrVTGrE8srvttm3obvfbzE cOeCXJuKEl0WRo4UISfeWieHf QpJZW5UyW4DWC5cBJwrL4rlIf n ceyygU7uLis+NOR4tRPkiMAFV J9zNdnjoQK+ELWrEXH7ePhiMB wtBGJbqW7uXZQhS6x4GnCaFsW 1 SCmsT0YhjfC4DHPuyZPfORTan CIDlS4wkazfs3qznqrzNfJhKG VsHWl5AQy9FWGjnWjkBcOvXOW 0 YeS1FTX5aIRneA7wiWrpbrcnk G9wOyc+RlzftEhzODD2YBe1R0 OjYns6ZBDyuDqnXH6orJSlVZo u Wz6scGesjPjgSS6jFWSsctulh 228JvSob8uwGAUgdXMmPZapTY F7C13tm2U6EREwCUMrPAU6sIT 4 pY4zuAndedbvxCYbgWwthwBjj AdqNDxaCOcvR041ZAEhoAxlBm DoWWj5I9VaEle1AIDalMlzXX5 n sXLaJMckMi0ugFtaxFjsOX8oM BWdzkwob517MxCwm6hyIUAsfS HfKBquMSZ7S80is1M4MUYvBIA w YEN8lPR3uU5jwGbxqgvytIRbd OyrsfUwlRvaZZzmLWcjC374KS PasWotDoTwnLt6X2AgLmc1GBJ z vZsnCQ4ahFDzMSkaKh7jiHbyw ForUJ7lALDpbtipg998RzRfu0 oyEPEssPTmGVsnLJV8F89qh9I 6 IRCvMTAyOYQ7qQZ0sU3glGltk jogbGVmdDsgdmVydGljYWwtYW efC441JIKxvZqrTwXiwWwligT g WTiaNUt3Z5YpVfwtrEW+PC90Y RMqSY99oKNpeFEvk8kmmWp7Rz VsKXZlDMQ7jYexSHqbv0QcOPN t K92crZGkh8X0UOWcoHmdmXIsM lChlRV5fF7tFZnbdvvvi7zjcc qyNbdne9iues97tZ19O66lISm p ACHbDZByFILkWWEmyKnnoe9qj G9wIi8+CHZucTD1pMF2hE5hJL EkGtQ2LGqyA676MiOeqFEsKwd j f5qix6mlzZs6TmY8YQRgndRoc PeiSSH9g9MtZs90Q05oZHrxZG RdAOWhFIYvLGCsjEhdzy4fpK6 w Ii8+XBSheDN5lUC5fX3xNqSnY iW5DKliH541OaNuaGOrNmohP9 8fU9MyuOY+YBApAoc0ZBRqxMm s GM2kxSLnOBrjRy9wCBS1CkFvL gQvKGskW2CtXRXjeiqdotxneE C3LJLuQWMfhE08Ty5kvHwjNOA w nWXMtJ8mbryyq1nqkedpHmUtB SCvGDd2JYs9JUQecPxzChYxKV C7RfQ5LNY7hIKjuI1kxYoilis g nH5mO0QsVVQvjvoiLj78zK3iP eZhKwI4XFwsIfq+RElDSywgUE DCPSsNASG0K4GsYyq0LRGhvZm s CZ2ekNRuMSauDf8qsBjovNmzE T3rDAPctvklJCSnfL0eOXKlfW FouHhbWW4qROBvakoxb504RpV x NPH6ARPreAGiE0UqrZ3cPeMbN ARpRQTsH5GywZCmCDnxZ025EG yxXgH0QCDajfNhM1FcBYSkhSb u QuC2q7U6Gw4fWN6vFS0cLLC2H J09CA13zLIxa1S7mYC1A1BmDG ObnjcvzffhwKQ2TLJiGXWnpF0 7 cXZgTMxgBo1ab4I6d990UAKgT OPfwV09Fw5qqRtaIDEcnZTPyI 0zqjogm1uassujDrXwTFNtBMd 0 YLe6WASbaDfyIwVpFFD6EsY5T SE8dBZqxV0nmQybkwvqeB4iAj c+MvAuAQUohnK0Q8JhQrj3OYB z yAoeUM9axDSzMTztLp4spYhfm IugFB9eZDEzjapbJIVvtD5vYQ HkdMSlvDtzBT8tNYStuejbu07 0 TeWvXCW6EAQfwFLkZ9QnuF0vM nSnTBZhJZHzI8UzdBMnOAmjT5 39GLmgWfP3ZQYwvwThH4LlYRD s jUlvOjX5g7H7Mi2KPF6lhMS7T 9VsLpl0VINicNfaQZ4muHNoIY hwLt6rdJpizLfcUI8pZXRmskc w BNZexN9fDCPyfVNhnAdvCR4aP LSlqwfrp691RnEsCNW7AWEhrZ OiF9DwxC2nUwBaCDFkDYZzZ3V l cYGbDIiwL178QBmsYrH2AEBvg tKgD3TtVUTgjZenMcR3q1Q8Ta 3BeRRaPZNvYB47QX48YT36S8T y PjwvdGFibGU+PHRhYmxlIHdpZ OZfZUclBNQaLxQihBggXI7cCi 8qOMIaDKKptZgacZYnWvFrc8m s USJgBPmjGW3flMluE5GuwMK7G KLlj0g8Eh19Z04aG4MreHF+PG IbrQZ0hGM5qR7hCkPbHkB4ZTc p U233CeNbvWKaMapbi6eqz9dho Eb9EpVoAILphcXyyMooGGL0v2 BnEy88W06eOVzwCSDtHKRpXVH i MXJxnIcdgw4ljL5zDm8+PGNvb LS3gZX0eS0lSkNmUuU6CYztA1 63WwAbbASyQajfR91fV2PyeZS + ZZFnThe4QNGnoYzsZK7yuMCkH MwtTn7nRWM0PrKwXpKePRpwZ8 VpJJHxezqifzzxxCB1YUEhFWR w qR88Nl2hxBtiAu5qYPMhDMJ7N MDfrAJmU0JygA6kNjHaRMYzVP ZpB7PedTVmJIfdP940HFsbFnC 7 ERYjvgGeL1JrUAGvqSjaLuD2a 7S2Sq6GwGvasIGfKL6uMxYnHD n0A7DxLgq3KNBvqDtqEB9qiTH k HLfaUy6fkUasnZlrLO8oNCKrm ntdn435MgClg6yeHCWjlAScJI ulQEU1C35bd4V8WCGiNAWiAKP 7 nRF7cN8zxSmpdkssvPWweNnhb kKwhDyfLSpfMSlgN491XEJskI ujHnFEPhu7K3SkGjh5UWRpeUi s QO7anRWzIHpuWa5dyQdtiCarS Z2qYLKrvcctg582YqItl2qsEK VhhAFlINvrCNS0W43ie6R4TXE w HLTfSFJ6wHA3eO2kgUxyxioir GVmdDsgdmVydGljYWwtYWxpZ2 09UTWqgQfeYp3JGer0D4WyShs 0 KKLaxWesWP0uoRHhDPfnOk5oy JiaiDzvNJ7gJBDmkodvh645Ck Udk2avRNDcyKMdXOtiBXH3O28 s q0W9CVOzVGRqOGQ8bLL4kB9xj GlnbjogbGVmdDsgdmVydGljYW dxYAajL717INYjaNwdGnDbcYY y OjwvdGQ+HC77rt72N5EoNsnfK ec7UHGfEVG0eKZ8qZ1uVDNuMG emj9N2mWS7A2OxaqAgyv0no8k s YXBzZTog (more content not included)... [facility] US LE Venous Duplex Insuffic iency Bilaton 09-04-2022 [...] Diameter 0.2 Technical Comments Depth: Intrafascial Normal [facility] Consent for Treatmenton 08-08 Consent for Treatment [id number]#1.00CD:12 7 [facility] RAD - MISCon 09-02-2022 [facility] [id number]#1.00CD:12 7 [facility] Coding Summary.on 08-29-2022 Coding Summary. CD:[id number] Ww+PG hlYWQ+WM3UYYDxH18sdPGdcG7 gR0IVPKrAMdtxLVGCSTlUChTy zaOcOV2okBYkPODr IC8+EI5mSUFyArxryTDaz0O7s EQ3A34shc9wFCprnMM1ZSMjEq Wxryfhh4ebbKa2GMwuLtguQkZ t DFTxkW22EWR5mS61Xn36aYVwo URyb0zdfZn8JeNfASDkCRV5iG csJWoka9IpUYIxU71mdEZdw1X 6 RXNjfQjenYLfKkDizRJ7pH5lS Rmojkypq6awgbasNnx1pg00xA Woy9G7kQE0F1SuquQ0WYSwlHH g LkrhaZAEgZ9etoxgm9mfcqwcN rNzGTRuEJl3NLg9ZBMpdLguGv CgSJ52UWM5GGEsqoNjM2HqCFW s wCmcPzU8p3X3Gu6EN3WJNwdhC 1VNTUFSWTwvdGQ+CJ12gj36A1 LfBxbyJyr7YKPgYXN4sVR2eV1 n WVDpHQxsg8S8uZA0S0KgedFak k9hp4wxZNTyCOasC02nmLQao9 X6ZNLvlZN9UAAfuJtrEvShnP1 3 Oyc+VTTkuGdot4PsJkkgr7xql 7jjkBr6ZdxjSYFakgYjkIjsQM N3f9SxAp1kSREhqQG5zUV5oC1 i UbJbNpT0DFmiI328XoMppQHzT gexJ34qY9NwyVZ+QDCtKxu0UC EjzGepYJ9wU2XjVQNbapnbcGD m iImfNL8cGPTfyfnkPZXcvL3oD XYwO9n6OjRkEcA8FMomB1IhZG RvqlnwPt50mF0sUfMoNeR2CGk u J2PiznZ9OKDogFWdCEeaJVB2G 35qc9I5BMLePXEzOSU1uLB9rF 1hbGlnbjogbGVmdDsgdmVydGl j GHltYMfnW849PFDeoBpgFpQcD GluZyBEYXRlOiAgMDMvMjMvMj AyMzwvdGQ+FNJuHCA9yRqtVVA n aCXnSPijBe8coQuppPwqKE1hF DNqruzgVSTtyG3kVQKsdJDjtO zbPR4dZFRgijhkt509RvQnICI 0 GXRecSCbW5LxjU6pJrLrNCUvT SLiP8IteHChDCvdW786LSueMq T6CDHxpeNdY2ZvBHFyjHilCoP 0 x6X6Co5Rp1FefyleC2FkwZWgC fTjTrazATu2Q3KmMonwsDD+PC 35CABtBK46PPy5WTK9wHtwIPu i FCMmN2BbfO3eIcNvLNEjRMMoA yc+PHRhYmxlIHdpZHRoPScxMD SvRsFtyJzwGD7rPp1dDQAqLLI v wMfkwPTrKcCqk6gvEIZiESkjS T3vaFtjH6GgyOR8TGQft7o5Ad 39T91vU0DglTY+UAUaeNU5dVO 0 kN1cToKlJiH9POylJ791KlDle IReAfbbr6ehf1yxvRe7OaH0PO YolbTfdHhlPTE5o4SoTn98G69 s IHdpZHRoPSIxNSUiIHZhbGlnb d4wzA2cYz5+VRExiCQ1iXO0dE 6hLbFkTdW0VRdpJ994QzTkvNC v Jkaot2ytq8zsxMt7YfEhGTTvu xAdmYxkOTP7p1VpSi72C1HyyK xwx1WfMxn4bo12aCSwx6F0yAH 9 E4GgYAKtjuxflIJjxKuuAA6uO HGricwaVDAdwV2kOAGgB9j2Le WpTdD5WCnqG1IxagZ7RMZqlZZ g HLWtjQWGkD4jqunse5cqasvfF dRhIRSpYZv3ZQp9QBLxySvtWs ZqHWV1ZqM1ZSW7sTLvrS6zeLf n exvuaP0cXyh+YRZ3hSZeuJXVS B8cHghtgAY+VQZuJXA2nZhbTS ojTLQyqW6pBTNjE2o0AeCmPsH 1 CDemI3BwyvN4LENoiJEpWZToh KLUxE2pmxlwj0omrcjpSuEmWI KlNRi5QYj3FGKueFrcKiOyAVL 0 PhA5THF7hODecH7cxLnfojpid G9wOyc+KpzzmBjjUBG6VUm1T6 MnNih5OWJieGpaDI1xfPDgOPr u Je1ksHbuaAdzGH0fJQLrildot 097NqBat9dhRGQpbEFkMPwnMT T8O36dk3W2CJSeGNWrMBM5uTT 4 pI5eeGmatzfwjGNvrAfnurYhc UghJMdiXXzeP844RJNtfUhpAc GaXBm9S3TaWkc4HFMcvWpjHX7 n gSOhEQmlKd7hsMgbjVcqIR4zP YXmkgutm451XyArf7pmJWDbbW HwMJsuQGF3M02vl9Z8BRNbYHL w TNF6hJW4hM7tqOqzycxvqBMpq IrufcOuuJroXXofIEsxN124FO YerKmsWmPbtTi0Y8RrJzp0XMD z wZljIV6rqTYvBPknMc6aiYlos PaxNQ9wZOBgwwcsd668KxOya1 jlPVGwgBTdCPfhYBV9R30ig5T 6 OFFrXKRyVYG0jCP1aJ8udTxdj jogbGVmdDsgdmVydGljYWwtYW pmD796GCZwgCpbEuFihAalvyB g JFqlUBt6D6KvIhmtaAC+PC90Y PEpZL60pVTatJQyl8vrfUn1Uz JyHUJoKVW6sNriRDvxx7BvVOQ t S17bgRAwf5Z2WHIdhYijzEWwX eCokGI6lY0xVEhcaxzsc4xzmf wyMypnd4isdk25qF82G51bLNe p DTBrRYQgYWVmZWMrnWxdho1kn G9wIi8+UZIfmXP7kRG2iZ1kRD FbPbK3JIopI202CqHxvADeZei j h2tkp8qviPk8ZlX5AZBkutSgk BcmAMH2i5CaYt30I50tYZouQA GbNIHmVIXiIPTckWpcbs1thB2 w Ii8+GDMgjHT1aBB5fN5yFpYdA dX2EHyaG290FpZodXBlXqplE0 3oR9ZzuCX+YOCuGyx4BDTtvLx s WK0taSHtBErpIi4kCKI8AaYwR pPoWMatN8HxOJAnjmssvgfxyX G1XCGyXGQsbZ38Cd9roOoyNBZ w aPHJcQ8kbetvr3phjptkYvMkA UMhLLh8UTi0RUJbvGuhXdDpSH S8XvW7TBN9lWJekQ9zzZefgzx g zW8oG5FnFKKfpnbqFd51eJ4jT zJmUgJ2GCjuUkm+RElDSywgUE ITFYkXNHH8B5ZtZrs3TJCswTf s QK4duSUoQAyiRi0ivUcafWuaE O2iZPXxtsdvOQGxdD3lKEKeiP LgsFhmGV2kFGYqyasbg311NgW x FJC7WGTkkRHbE7EtxZ6nHnAtA TJyYRWdS9SdbBXxQGukX527UL kvRbS9DSRzxvDnF4QpOAAsnXj u AwL2m6W5Fk9uGC0lKI5qXMV5W R00ZF01uMPvm8G5hXW5S6RdME EtzhfiskrkmMO4TMRgKHAwyQ6 7 uHMvTJoyWt4gr1P2s307JTVoH UQaiW46Ep6kqGedFCWrlQNHtL 4lrfgum9fpqmarBoDnQGQuYMm 0 LNh5IFCwpSnhPfZaWON9GeR8M ZW9tTAupV0zkRpaimwokY9cUq c+ZvHsTUVlkzB0X5GaVpt2TYI z zIhiZA1gbSQlWKmsXb6vhWczc MeyNT8gKWZvheceYSDylG6tJJ DqqUNpnPsrZJ3hUFTkhoksa93 0 UvEtLMP1TMNsqPHzM4OehT5kI yCgKTCzBFFpI1TrbLMgAOhjT8 09MQmpDkO0SNFwvsXnC8HpKAH s vXirHfX7n7T6Nb9VXZ1dsUS0M 5CzKev4LZAhoXptOE1cnROtXQ dgAw3apMzptMxbAI3nHDVmvgd w CLIpeS2kXQJywPDteYbhFP9pC IIjjfluk766KrOrNVJ8HBSrkT GqG8HthI2pIcBsJPQxBYKoY4O l kVXkBYktR882BKbsEsJ4MSShy cVtD1SlGMDlrKsrBvV6g7L6Iv 1GmRJzCCNwCL59NF68VK15M3E y PjwvdGFibGU+PHRhYmxlIHdpZ UTbSNcmYDNmZuOzzDnoCZ2xVq 6iNXSaTKXbfJcbwODrGbYsr1g s REUrZYwcCN7ulYiaB2LacMB8U ASfu5w4Qz57U71mR1RjcBY+PG PajZP6bQY1zM7zLsMlDxW7YEc p W645IdVxaDZyRihud4irq8lyq Sg0DaRsFFVariMylNuxINY4m2 DpEv24U78aGMiwFNUzKCTjEEK i LMNglCqkqi4qoB2oJw5+PGNvb GX3dOY4iG0hJlDoKvU4WJchY2 17UsTgoZEyAaobV28mW1CfkZQ + UXXnExa9DORuwMpkGE0lxJIdC CdzGf8uVMQ5MrTrXwJdBDfgX7 TsWXGtukmnehxieBX7KKUwNOS w mP15It7nvUoxTl1bHHHgMDD9R UJujLNmQ7PgxJ3xMiPmLNHwEZ AqG5YiyLToJXmwX340NEybTfY 7 TJRzcsFlW3BvSKMggDksAmP5u 5T3Bo3OgLirgZJfFZ5aTvJoIL r6A4RyJld0CHDwdRijHP7knUY k PTgnNw6bxLnksYjpAK1fDIXgq tzoz269VePol3ojAYUavFKhWC dzMYW4H27jw6X4RGKgYHUnSLV 7 aUP8hO5kgVhkhfypsOBxaGiqc kNkhOyeLNljTStqF096FVPopS zuIgJTKky3H2MjQbi8HNXuyNz s YH8urFEoRZckVg6pwIngoKveL E5yYMCejmdmu941YpFgk6hfOG NdaOPkXPvwRQD6W92nc9Q7ENM w HCNbZRZ5kRF1eO1bmLdgvedxi GVmdDsgdmVydGljYWwtYWxpZ2 69YEVctDtuMq9QDzd0C8FfQtx 0 IXMigBsdJP4myYOrEBrwIx8pv AzabZcmJR1tHHAxquziq584Wl Xhp2dyNEYraCZhTBnaQIO4C70 s h2L5PNSlYVXiTHV3lUM9gA9hv GlnbjogbGVmdDsgdmVydGljYW gkMOvgJ346UJSebLpvNgHbwPH y OjwvdGQ+PZ30eg67I4HdBgofF lp2OJIuYNE3sYZ0gP7lUMRlAZ cee1D0mBD3F4WwqtXrys1wf4c s YXBzZTog (more content not included)... [facility] Coding Summary.on 08-28-2022 Coding Summary. CD:[id number] Gh0bW w+PGhlYWQ+WE7YPUNuS12pjKR fqB1sK4JQCXoZCairWHTCVAlS UgZyjwAbJN2jfZKzCVYl IC8+VS2wCFRvLixccPXxu3E6w TD5K50qbn3eBRpbpGU7SVNkCg Ryaatci3cwvFa1QKsnLuhqGsV t ZYXqdH77BWG6wY88Bx10gJWve YJrw5bnhPq4RjGmMYIyOCJ4cC azMKqch6KmXWWmN93caOAwg8G 6 BXLnzVwaiPVmGeGojAJ6iG5sZ Faimnnxo4gsxqonCrp3pj10tQ Efk8T3kOU6H8HquxW8IHDvtZR g OjfhsDYTxO2mydlxr7fmnpwyF eHlOFWeKNe0MNz9VSJhmGayCg SlFD99EWP0ECFeecJzB2RaUSQ s rIwhMsB7n6F6Yx9TX3CYLfdtM 1VNTUFSWTwvdGQ+RO24ua01C6 WaEssoQzl2KEUaQEP6sUC9yF4 n DRJcLNkgm2T5sKV2K3YoutUmt d3cm3nnAARhSNumV64usBIdl6 H5ROZdlIO7BJRwkYjvLwGiyY3 3 Oyc+LEIdjWcjy5UcYoqjb8aqi 7tbdQl9EhgnKVGgyzGsiQkhUD S7q0OgLe6qXGNdfVI6eTO9uF9 i KaYsQiO0MAtdP929TxTskBOzV hqhW92nP9LizDF+REMnAyj7WQ JvgLaiAO9nY9RmUIPyidwfqQQ m iYdiLK6zJZWqmbvzVPYzeM5eA VUlM3p7HeLhRqA6SFaeD0EuNP WvlbqsIw59kU2nXwYuGmX2UYg u P6ZzqsB0YPKwvKEdZYuxRDU0R 10zk4J4MZKbDRMrZLL0wTK0pX 1hbGlnbjogbGVmdDsgdmVydGl j ILslMEojR183VGApeFdjFhBjG GluZyBEYXRlOiAgMDMvMjIvMj AyMzwvdGQ+CDYzVYO0xWteMKB n eFEiKHcfQt7xfOgtsAdrLE0rD RHwnbneNOAzaX1mYQAmlVJkoL ajLT9zJILbhroyv915UdGuFKU 0 TOAcfUBpT2JzbS1gWaIdUPRtE LFzE4PwvKShNZvrE835AFmeEn N0CKOnpkXeO6FpXGZcdYhkPvY 0 b0W7Iy9Nn9HdzxqjE7AupVBbH kDrTszsKIo7S8JvUvufiBH+PC 75WIDbKJ08EDk9YSI1qNjxECz i LUIvI6TzsC9hUtXlMGRgVGAwV yc+PHRhYmxlIHdpZHRoPScxMD GpRfTtwXlaDK2mYu5jSMZzQQU v oDkqrEGoDmNzj9jqRDTjDKfaU S2wyUxjG1PeeJW7NEAtx5r4Du 50H75aQ0PejIV+HRXeaEN5mRP 0 lZ5mYtUkCeZ0ITylZ588EqFhf KSpFomse0blp7dpqFf5GlC3MS SkinQasCcfJOM9c8LiWc23X81 s IHdpZHRoPSIxNSUiIHZhbGlnb o4ysX4eYh7+RZPteCF4xAQ8xE 6cJpKvQoE6MEvxU849JxCzfCS v Mvlia2fim2cpyPh9DoGuKLUju cWgwLkeFOG2u3InZy97T8EnaB zts8ZjWni4tu56iOBcn9S8zGU 9 K1JbLBZjxobcvEUziUmiJS4rA SPvcdyzAZSgzL4sCLGfL2l7Ez SsNxR9PNibT3XlyeK6XUMprTI g FHOcdNXJyG1mgashl2mubmbiF fKaRBSdXPo7XCr3JIDzfBsaXl MzNIG8PqM5SGW7cTOhiW0pcMt n xsifbD7pLjl+UGL2qVDkdCZJP T3jTcrabTF+ABFyGXZ8kSbkIN joXDOlbX9tGVYvV5i6GkIcMoH 1 DPgeQ9FggnO0ZMIcyJOmSCYix MQWwA3favcmp0qiabfkJbRaVS NrCAn2FOv8IYLoiSknDsHnPPE 0 XsX0NVB3rVRuaZ6nxTlvubtpy G9wOyc+GxebtKqlQZM2CUq5N5 SxPpx4OUOumIfxTY0yyORoDJz u Ho8thWviyJjfVF9tWNJblvwhm 971YiVhe2bgKLFprLFrCBmqIP V9Z93qw9T4WAVsONSwMQA1nDF 4 zI5zlOhmcgbliFKhcMttrdQhp BelMCbyROcbA874NEDlxLjtYn LuDFo8V8AzOdn5BIVjyXuvRB1 n qSIcWPfsZk3toIijsEiiGT3mA FRiuggia911ZuSnq9agGBMnoS YkFHkmYDK7Y69oh5O7LHAiISV w QVG4pKT1bD9ouGmnztnytNYxb FsnaoEwtSxnTNkgEYlyL939KY TkoUidFuIjnKo2Y9UgSqz2ETY z oPdnOF3ljOOyHHsxBf0vfEizk NmdHX6tWAMzaaxbn253KtVbh2 nlYHNfwHZmVEypEJJ5E03br5W 6 KXOlTNTjSFV6gNQ1jY5qyEnvy jogbGVmdDsgdmVydGljYWwtYW ncA471XBLmbDuyAkQimYnrzxK g FSjeXTi0Q1CiWawtkAA+PC90Y JGjFT90ySEufNZyz0lbjXv4Ut MiTKYjOCX2hKpkHCpgl4YlTOG t T86xcNPbj2I1ASLgxLfnuVZxR hTaoIK2nB2pWSxfmxbrf7lnxz jwAlnti0eaai97aO16O02cOMh p DBTjBYQrFDXgMGWmeTalxf0zc G9wIi8+KQAvmQM0tQG0lH8pXG CeFfH9ZZnkW175WqYggTNoJrw j q1imx0byoEy9DaB1HORfihSea WpkOST4h7UpIj14Y37aBXrgXE OtJVQdIGQwYWEkoHnwxw8zfJ8 w Ii8+KJLprUC5vPZ8oK8eZxWrT cU2RNsjN595GgUeiMRuUxlwT1 9rW7BpxFG+UWZuAwt8WZHmhEl s TQ8vgYFxQHirQf1hULV7IzPrP bXgLHdmR4BsJUUyobdgfvvmiV Z5LMGzHGCmxB84Ei4wwLfxEAB w sVVPpU3jydacd8ncioldThUeM EMuEIj9KUc6TFLobZhzXmPcXV O3TnY7IKQ2rIIsbL6wqXfivhw g oO0lO4QkCRFaalnxQe70nX0lD aGwLbE9MBmeZov+RElDSywgUE VFNFqARQP7F0NoEso6PVZinWf s TB9vnTIbYGfsIc3swUmeiLulC U4dZQMhwpnnTGLlzE2uSJKsdW SiuEvrNQ0dOFFxhejyk000UkV x HYW3TIZauJMjP7WdbF4gTnFrH PCgZPUrE7UsxQNoNJyjN438RG voGiL2XXApuxPdX7KxZFOfrDv u RkZ2t1T0Fh0bWX2gRD2eGAC3I W55EH58xLZps1M5fDI3N7WtFV DmtudchmfudXN9BCXtYLMfwC1 7 aBNxPArwSu2rs2L2q758DUSvE ZOpsE96Me0inXhhIVOsvQIFnW 7wwfgyu5ccbrjbMrEbHRQiTId 0 PQn6SFRwhYuwJfKvBEN3KwR1H JY4tIEdmF9fjKehxddvvL5qEa c+SuBcDJVktlK5W0LvAuk2LIB z aNlcVO5tuKXqLUvwUi3kpIfrx HhnWO6oQQRccxhaFRFluX4fUE PqwPIcgNytVR7oTZLglrbhk34 0 ZuZaKML8FQHunLFnG7XscO9pW bRzCMVyROWtV2PleYHhDKvuS1 01OHvrPnP4CVHqboPmJ8QxTFT s vGivLmK7o2B2Mk4KBL7yeHN3A 1QkQue7XDZebGudMR5ieLKmVT pqDz2ccVniiLueSN7fXJHffgk w USNsbX3nVBSvaHRxfHgbRF3uW NRliasrk937HzEcPQL9MIQfpP BtG5OyxL2eVmPpIZHdSRLsQ3B l zKFtWLvuR374SVwzRlT2OOLsx mEqQ6LyNMFbvYxvUqV7k7G3Zu 9PyLKlUFEzKK27TB54HZ52B9Q y PjwvdGFibGU+PHRhYmxlIHdpZ JBvTPmgKUMwBtXauFwvNZ1xRk 9hNYLiMAByfCmndRTmIvCzh7i s TOSlMIsoAT9inSlyT8OtpEV2I TUaq8r7Fz47H99sB8DlxPI+PG JjzPW2qBO5qU4qHvXgBjE2TGg p E850MiSfaGQxSzzzc4cin6mvd Gc1TkMyAHEyslPaxUquOXE0j7 ZsJr24I70oGSbdHKNuVJOoBMB i NLEdjRfphg4veA3kEd5+PGNvb RW1lCE2vD4nJuTuIyV7ZZxiX1 30InUrzAOjHuqbZ16kW7UuhSP + JARfBol6FBGjdTizME5zhIPtP NnrOi7sPNM4JoPrPcDfWPibA5 YcHTQzlgarmolqnMD1KGYqUAX w kG67Cc6nmHtrUr9aDMKwTGT9Y QQziEOmR6DalV4nQoZhEOKmWW ArC4SsqFByJJvuR670ENnzOlH 7 RKFerbLvP2BrITNvaLkjIkA5z 5B6Fs6WdByjiFHhSM7lIaXyTT e8C6VrIrb7VMEvlOofUE6cwLJ k IVnxBi9qyLjpfFrwQV8sWYBme ejxj596NbOec4yhXPXqeNFuYC nlZVN3C57sb7X5FXLfNXXiBUF 7 bXM2zO6geEidscxvkNCzgSxdk aWhoDbsVQwySQycI094NPXboV qdYdFYIoj5I5HfNlp4FOLyaAe s AL1gzYKuCTkiHo7jjMjlgRfwF N0oHZIvwqcqq403XuDuf8vsYU AwyUOqJTprFAB2I75gr3T8FKK w XNZlNZF7lNP4zU8avKljvnwvy GVmdDsgdmVydGljYWwtYWxpZ2 38NYNpoTxlLt2NWkp6C1ExEth 0 DXSejHniSG2twFLyOVszAb5ag FgluQesZZ2qLPOyfodeb803Ma Qej0xtAENtsCWfFHlaVCS0G17 s m7B8RTHwXZAxWEG3fSV8nF9tc GlnbjogbGVmdDsgdmVydGljYW blXVyyK758XOAkaZrdZhDqyBP y OjwvdGQ+IY96ym73C1LtDgvcF iy5NRUfOZE0jJU5qP4cEJSqQJ gjl6F9uNL1K8FlqlUket3om1y s YXBz (more content not included)... [facility] Coding Summary.on 08-20-2022 Coding Summary. CD:[id number]:[id number] Gh0bW w+PGhlYWQ+GI2SHRLyR29srSQ jeB7cC9PRAAeRIcmtYEBEEGcR FnMpeeLdYQ7ceTIpQBPd IC8+ZC4yVZOuSzwrfHMqc0Q0r CU5K29qlp4jJEizdWS3OFMgWs Qazzvlo8qjuUi9OZwqZpvzYyC t XSDaqY60CCN1uN23Vn59hIRjn FFaz6cqvSn5LtAoYBLcPUP4uR gpZAnxm5KuETDnR36jwXUuj8N 6 FGHiuYyxsUQkNcHifHH3dF2oO Zsowupdl2soejjvQzo5pv84cO Nlu5S5zCD1G9OdyxA8QVGheSD g RuakoVMByY4vruqam9fyguwhI lVpITQwTJp2ORq2IBSrqWmlQb XwAA60WFK1UDUenoIuQ2WfBDL s pYguWqX0d8B7Hh8OW2WCTscvR 1VNTUFSWTwvdGQ+GG32th27M2 YcUybtEqz6XTKlYKH2vKO5eV9 n YMBjVOatn1V4vPS7X7IrdvSpc d9ou9jnKRJdBJyjV72tcHZyg9 D9YTRuyXK9WGUnjHurLtXjqI7 3 Oyc+JUCpxGrew7GxJkghi2zrx 8ppgOi8RiyjCDGqxmEmwTkxQX D8a0LySz7vCBTdwPP3dZE4yZ6 i AcNkTbJ9NCdpM258QrSkbCZpF cstI51iQ5YrcRH+QZSgPac1SK QtnLjvSI3mI8FcODFesornuQN m oPdxAJ6eZXAecmvlSUEuyF5sQ SFdH3p0NlLfCoO3ZAbdM5GkKP QxcnyeLj97nD3eJoYyWnU6ILb u Q0OnbcP5FUJcoWLmCDlqKQA6P 27vx4W6URHlMXIcXCH9uYJ3tA 1hbGlnbjogbGVmdDsgdmVydGl j IAntVUthE713WAGevNcvZhWpM GluZyBEYXRlOiAgMDMvMTQvMj AyMzwvdGQ+MTPdXCL4fWamNWY n iPAbCPdsFw6fzIetaXjfBI2vF KWadcxjKQLuxY0oALJzlLKawZ eoBL8qZOFsvrisq738UcRfMGY 0 RLDyoUHtR3EpxF1lKbYkIUQcX DEfM1DjbVCmMYouG472QAwgXm X7OAFjkoQiV2ZyQIOqtVdpZpP 0 r0Q6Do0Lq1KmppllK6QxkZXwL tKlCadpOKs4C6NaJdkrjRG+PC 51FWAcER98FDm0DEX0pPmxAGq i PQOnT8ZwvF3vVpQtZDQrVNKyA yc+PHRhYmxlIHdpZHRoPScxMD TdBmGgsLndGU0hTb4pUXYhGAT v nTiniMXaAwQks3ryTWVfVGebY V1qtXevC4FvdBJ2TGKdh2c2Fh 13W48sP7HbpFF+WCFknVO8zMV 0 kX4pHtUkSvH0WNiqT310WtGta OBbUceti6xmr3przIm5MeL2QO KzlpLokQcxLDV4o7RvGs07I04 s IHdpZHRoPSIxNSUiIHZhbGlnb z2uuM8uCf8+XXWzlCW9hLI0oA 6ePzLjAsG0HXirV124VeJyoPQ v Yzncf2tjw8xpbUj9YtBnMNDzw yTtzSrbJHO5z5ElLo05F9IxxG iqg3HhHwe4gh21fFQbw4Y6cUF 9 B7IeSVGkcgnggUHcyAuyZX8nB JQapbjfGDHqpU7sZNEzB4v5Ao VpQiW4SOqpM3OyluG7TQThhLM g TAMalHHNtM3wrwatr0cmtqpqK bGwGZHdAKg3HKh8MTChaUelFj WmWQY0UhM2MVY0mGDefS3iyYd n mirhmH9mEmd+FPM0jLVfrFRYG T2rIkxtzAL+IGZpNQE0xZmcOM jqSBXunC2rWNZqY5z5OuFrQyZ 1 DNkcI1KgwlT0EZFmoYXmXGQtz TMEnY4qflogw2zvsvonYgWeSX LdSBi5KIu8KSTbnQurZzCkYZK 0 AbE4XXE3wCWeaB8spPhuabtpy G9wOyc+BeyytHrlRGS1QUl3U3 DjBhb0ZURddKwnJO6puMVpLBi u Dh8nyUtlhRxjLM0tSRJwowkoy 407FdJlp0wpHKWmnVAiATbzFA Q5B06tm0P6QWLzRNOlINO2mOA 4 yT4yaDzvkynxvFTugVclzsZck NntMBizVZpoB611AWFqtCdlGh DdUFd5I5IlKzl4DBSgzDvwCG6 n iVKbGDngPv1fhPqweMxfMH1wP ODqmydmq632FpInp6gwWYJamX DyBGetUIU9U71yk5W0MTOkUCB w XYI5kVC8bX6blTsqglmevBUnc LpbshJrbPefITfkHKerG357QZ NtwFqzFsTfuCj8L6KfWfp4GBW z vSgfFK6tySBcHHgrNv9yaEddo XnpUB0kEFKgyvapi495HwZqz3 qaOEGtgINdXEzlAOS5C35eq5L 6 BCTnKRMdAPU3lCY5jD3idUvbp jogbGVmdDsgdmVydGljYWwtYW udM908CPEwwMjhYwRtdBqganX g HUsvZFz2Z9UaSrmtkMG+PC90Y HNoEV21nMGdmCFix8pdrNz4Sk JtGUYnFDB5jYsqANebd8WeRCD t P23iiOGxh6C1LWZcfZsxxNVcO nOeoDP8wR2nQViottfmb9cdac hvFqjho7tmqu32gB11F93nQNs p UQEnPQMxBWSrIRTpwIhciy8yn G9wIi8+QUAbpLK9fVG4nT0qRV EaFvM1ESnmL334PwEusBVaYbd j t4wtc8prmKi6AyD1EXCzquPix RdyMJJ3m5UcCs89A68vFCzeOQ XrYULtKEVsVNBpqHugao3voK0 w Ii8+PWLwlIL5cAV5gV8gNjFnE wL0XIcmN879IvXvpPBwNsplF1 4sR6GrcPO+BYBdRrx6FZGfdMp s IC0ctNHoBUmuFn0bVBR5YpNsN eMnMQcpU3LlBYNhklqbhadzgB Q9ANZqDCHovQ10Mf2nuTxjICF w jFNRuH1usfqya6mdkfflWcQgY WWaUJj8PDd5SWAxwQdrEpUpLZ J8IrT6OMS6dAIqtK3qoDposbv g jZ0eZ9EdJEIzqnaqEp50zN7mB pRvUbX5UQwlFvd+RElDSywgUE QJJQuYDON0A7OlJpu8MHOezFo s WL3pxFNxJFrqGk1raZdusRavB W1sGHJiqdekPVUibV3fIKOcmE EfjVtlDE7pASQqrwcql705MfR x MNH0GFIssZCkZ5TctT8aLoMuG ZRwVXRgR0ThaDYwQWsgD424HE osRtI1WKAizpIaD2FtFZQtcNv u SpK1i8P8Zh5fOV0pCP8qLAA4H U13IH96kTEgs4G4jVY8G6DuBU RyitlqwzgsrNF9OCYrGFLgrN3 7 nDCbMGtiRo8fb7P1i332SDEwJ BQbbP06Dn2lcIteSKGttYUHbF 0ebdkmq2ggioexRyFqEOIfWXn 0 FEw2OVOqaCykPxNeWJC2RmB5E EN5gIWzqC8ioAzzmnbygB4pJp c+XfXqABTwffK4Z1HjThm9JVS z iQycSU6vlDKyQAceCn5fdOjds VbvGN0fSEBitfukEWLkuD9mON WbvGOhsQjuVZ8qGTAdunfyw65 0 HiFqJSR4YUJqxSBdL1EttF9gC uVzOMZmDDDaL2CgrXStIYsuS7 34UUrxAuQ9CNVksrDuZ2DuHFC s aFgfNeM5n6Q0Hq4CCF5nsPY6C 7GiXhk3QSMpyZqvFP2gvHYkXQ zyMs0ngVedzHsqMF7cDNBkdko w UMQlnK0aWRHtjPIlrRnkYT1kG DHdkbvfx264DmTcXFG6UNUucV KqQ7IncU9pSoAtAAKmMJKwG6H l iKAgZVoeX163EGplJsZ1QMBbm vUcW6TbVMXovWpdUaK2l7H0Ca 4ZpYCaQYPiXO55IW49OU68S6J y PjwvdGFibGU+PHRhYmxlIHdpZ MFrMZjkQIGiKiXufQgeGZ2hXu 2jWGPcDGEkxWkacLCbVcTkc9m s CYKyEEuxEM1afUakR5HdgAC7L UVri5h6Bn85T80mA1JyfJT+PG UdiLZ1hJX7xX5lFpHtJiW9LKl p K158LnPcnOWoIjiue5bbe8sbt Ts0RgIuMCNsflPjhSaaUYR9l7 KrAl18Y02dVYocRMMiUFPqQJQ i XLYvqXloaj2szE8hSv2+PGNvb TA6jTE8zV4xOtKgQdD4WUfvK8 14CuUqnPSwXxuoC24pK3UffZT + TXVkKnr2TDWeuTucCU8meECqM IkqGd7pKHU6YiJwWbNkAGmwS3 NxPLGumlccqfugpQK3VKSiZTN w zO57Ov1znQigBs7iETGoUPU7H IDoqCPjD6SuoI2wQcAkUNKnFD WvT7JbeKPcNCjfE327UCglRjC 7 HMAfkkBiX5OvTNTuoCzzPvC2e 8K7Wn9WkDdidKTdUF5rQmXdEV v6N7GrJpa1MZGtuIbvRJ4voQM k NLplQr9aiKihjNjtJC0eNCQmh jgnv336XtKnc4ohIQHfrZWoNJ ugFYF2Y55vw7C4OIVvCWRoKZZ 7 qRT3dU0gvTwnlrjvlLUveLxip wAymVdnSXomDCrzK539XWRbxY jjYcBFCac6Q3ByKch7BTAioVy s KW4kpLAnEPlqMx3jsJtpvJpwL J1qJVKspvkfq429GnYix3ijSO OfoLGnUUqaGDV1G19wq9E2CYA w KRInXZS9pMY5vF6dtTwkdkxwb GVmdDsgdmVydGljYWwtYWxpZ2 98RZZprMewAu6RMkp9I6KvAik 0 ILUuqPscQR2jeTAgPUloOq5zr SsbfJcjWW9eCVVhsqklw665Wa Owt7dbERVscJVnGUwoXBJ7T30 s i4V4QDAgBXSgGMC2qPW9yM4wv GlnbjogbGVmdDsgdmVydGljYW myUBslX387IJSbkShlOvDvzFR y OjwvdGQ+HE89ao45J5NeMbdqU da9ELOqJHN7aFD9aO1lNEIyLH mvm9Z8nMI0T0TaibCitd0st0j s YXBz (more content not included)... [facility] Consent for Treatmenton 08-07 Consent for Treatment [id number]#1.00CD:12 7 [facility] Consent for Treatment [id number]#1.00CD:12 7 Normal [facility] Heart and Vascular Office/Cl inic Noteon 08-19-2022 [...] sooner reevaluation. Follow-up With When Contact Information Connor RAMSEY, Carlton Lowe Within [address] [place] [phone] Additional Instructions: Problem List/Past Medical History Ongoing Extreme obesity Historical No qualifying data Procedure/Surgical History Arm, section, Cholecystectomy, Knee, Knee, Tubal ligation. Medications amLODIPine 5 mg Tab, 5 mg= 1 tab(s), Oral, Daily aspirin Calcium and Magnesium oral tablet, 1 tab(s), Oral, Daily hydrochlorothiazide-sohan nolactone 25 mg-25 mg Tab, 1 tab(s), Oral, [...] Carlton Ryan MD 08/12/2022 10:29 EST Normal [facility] Comment on above: Result Comment: Elec tronically Signed By: Shira MCCURDY CNP.gerard\Date and Time Signed: 08/19/22 17:15 EDT Heart [...] Magnesium oral tablet, 1 tab(s), Oral, Daily hydrochlorothiazide-sohan nolactone 25 mg-25 mg Tab, 1 tab(s), Oral, [...] and Brother. Hypertension: Mother and Father. Normal [facility] Comment on above: Result Comment: Elec tronically Signed By: Nathan RAMSEY, Mara Damon.br\Date and Time Signed: 08/19/22 10:18 EDT Progress Note-Nurseon 2022 Progress Note-Nurse [id number]#1.00CD:1 27 [facility] Reminderson 08-19-2022 Reminders - From: Laila Saldana To: Sharon Peters; Sent: 08/19/2022 11:20:35 EDT Show up: 01/19/2023 11:20:00 EDT Subject: 6 month follow up Due Date/Time: 02/19/2023 11:20:00 EDT Reminder/Recall 6 [address] Ryan (2022) [facility] Stress EKG Tracingson 2022 Stress EKG Tracings [id number]#1.00CD:12 7 [facility] Consent for Treatmenton Consent for Treatment [id number]#1.00CD:12 7 [facility] Coding Summary.on 07-05-2022 Coding Summary. CD:[id number]:[id number] Gh0bW w+PGhlYWQ+HE1TSIGfK36ywZD utN8CV8tQGR6XIIRMMMBUMI1S XZ7bcOJ8QQeeP9YohsOi UawonWGcDM96ZRk4LGD3kUssQ AaqsD7hcIGlP0x6MlVsPI09bL 59PXdhVDHpWcO1HwXrkcqwaKG y G1fiUiCrjSXsSos+PHRhYmxlI HdpZHRoPScxMDAlJyBzdHlsZT 2oGn4eZJAcYOVlbCvhtMHzTcG j m8luBMGnMNrhAR8kuXajS5Wrg NM0DENiz7v1If51kCB+PHRkIH W7iEekUPwpw592UoLuj4xdZCU 3 aCYdGOcnKAW8K65kh8I9BIPjZ JRtCHD0gZR2gV8ojMtdlxigZ6 LutKOvAjN3ILM1wFCtrW9xvSs n raxroC8fUxe+C33KJG1GMXJMX W4VPhf5T8GqJykppAT+PC90YW DcYU08mWLeaDSrt4uhjBx4OyN w ZFLpTSA7cMgtTQksf3AjEWOdW 55waECyo1Y5EJTpsJbwqTTpXc ZiiTB5nN2jHNurqdczf2nrmaq n Oeycj7ktlz01uN91S30kNVcfM PEbKVQ2OTKuFHLseInsxe5wcF 9wIi8+QJgeh0rav2zpiZv4LdW w QNEtnjBbaTsjWNO8y1OkUn04U 1UwaOgoq4UeKkx0dx01jTHmk5 D6rBK8PEeuCHZjkM9pITkpEoU 6 XWKrGsQngY72tYWqFQynHh2ww AigqNwtNJ2nIDEfvhwyIXWoaT 6qOAQofTYeyHgdSQ2iPYKnxgc m n555JqDmQRG2WOEphNFfW9Ryd K2xByYrYUPnESRwZ3VssQOdRN wbN333ZTenCuH0BQOiwaDyB3C s KAXnaEvnCtJ7v2G0Tv3Vi6Mbu estZEX9GClgTSPyZgS5VwLxVv J7F6WtQii7OKPsePhaDD2fN7H h IVHqtfswxrajgBD5CFOoSVLfr Q98wOFnKBhvZa7sj9C7q473VR VfWYUdgM77Ks8gvJghLZGisEY U jD4ptvqdo6iwxpjmVoHdOIKyJ Fk0WCq3ZAEbiOruUbEiYPM8Qx V5INC3iLJjyF7nbGiioxrvhB6 w Oyc+U06ymJ9xEHC8MDN2fqprI CHkzvYkKT15MV72D8BhQxpkuP FibGU+MWZhzqTwvMjcBK8mAhI j g3rlo0RpNQtvR3JjHNQvBCrhO bg2QQKjYIB7bPI9uZ2bGVJpDP ugc4N6mKO3E2DacyWdrw3jo4a s DTAkPZxkP00wdKEln9U0XXSdq PM0FLIfgNmlXfZptR09Tht+PG EovBewp9CyYufuf9pvw0oiiTw 9 XgJzPGHtpjJswKdmXVM6c3KvE w44W62jEVqoCVPhFYUpZHSmOQ ChpJcupu7foL8gNr6+PGNvbCB 3 vRO9yQ3hNZVeEaS6DGvvB987R zKlkDSrPansm6cap1fdhVl7Ja LdXWGaguTinFhxJGD1j2RaPz7 8 E40xSBiqWMKrKLKvVQBtXZZhw Eqgil3fwD6sVe3+NA8ey5agak 31yP32rCX+EIQmZCT8sBejYEk w ZDOciO7aISzqWjD0YYCeOgIvh N10zHWvDJssPz7wrEozwSupQF 9pDFZlhpajz152ViFaa2bqHZU w xTGlRTbiWBN8A12ac8R1QNBmX FFeGSS4tYL9bO5jiJpmwvkaiU PtjOtwekClqIreIBuiBTzaR51 6 IHRvcDsnPlBhdGllbnQgTmFtZ Ds1F6RaFgc2OMTfpMfbNN7khV WfMAwdLr4wmRvmvJiyLA1vGMM p pdfqv445ZrBmi8eiXJIzeHBrZ FehGPS7C53pw7J8YEZzWYUoOK C3wQH6dM3quQgopygmwSCpbVr g yyFboPjpXRrsNOoyE885LDXib WzbIqDjdaJbCGQvtPE7VW01LK 55aIIpv7C4mCZ9I1WwMBYswjx t rfanlMS0JYDvCVWnlL47Td1rh GbuIg0cJYNdBSB7NXYilAAoR8 SheF2yMyIkBTBeCUKdC5UwwJI t MIarG910KDehSkS1QYBnibKuY 4OpJGQoqPwlIhW4g4C7Sf7MG0 H5AK65RO05oKBjl2P3yRR5U9T h RSLabjzmxavfzMM0HDTvJNCrt R28Ow3uuWpvOf1hFJDmNRQ8TS IebQBiA7FrbH2yXcOrHRBdMLL w T1AfeHLtGLpdJ406BPnkPbN1N UMzciBoP1YhAFFjvYezEgK5s2 K6Aw9CXTa9LB39VV13mBDqd4Y 5 kHM6Q3RhLWEunbqnobdqvIE5H SQkXQBldA57Sz6lqZmwGk8eNP CkCZI7SZAgsAYvB6XcdJ2lMwK j USYxXWTiU0KuzGTyQTepL754E OiwZmA9DPQjqfJuW4DqXHWzwG rxQmR8t3E6Uz6LEYIiSX20AUA 5 dUE9KL06QF08C9XiZwrzcKGem +PHRhYmxlIHdpZHRoPScxMD NkZoAgyLblXU6xUp2yFTOlUIS v tOkzpHFsHfXzl6nsBIYrAXymP A9dcLllU7CjbQQ6PWVlq2d9Wc 40B80aX6NyeXU+MHOpmOK2kPI 0 pR1gVjOaNkW9MFmqH526OdTec KXjRmtle3cae8cqjVi1DgM9HO PylfCeaXufJHA9k7GwXe44K49 s IHdpZHRoPSIxNSUiIHZhbGlnb e8jtF5mPm9+NFWdrMN2sPT0lH 1yRzXhWsW8AOphK637CfAnhUB v Ctakv7qym2cauHc6NkStPMItd qOtpAueGLR4u0GxVc29Y8LopY yil2NgSth7cc37xVWce7B0bFU 9 J0NmURHvypybfOLmcUtiZP9rP FMdyeonEFRxxD8vTIPqD7d0Yv CxQjL0GRuvY8RxyhA2AAZscAU g WFfkCPC2H88de1P1FQQoVQFyT PR7sIC4fH8oqDhwmnacoYWuoB lbafOfjMfcZXdeFFclY734UUO v nJtjUZFngU1wHOWydCGgiDmsZ H8gSKWpjhhgPdBDJ4wxUXFGHZ KMVCODRY22XK37eSVom1R4lHX 9 L6KmEQExspcsfvkafOY8CXMnY EMiwR21fVVpXOknZk0bg3J5m5 19SEJuHUFzoR39Tm5ipGopXWZ w yJAKlL2fcqcmb4spfaebZwLyI ULxBLf9FDb7ZNQzmYbcVmVoFC Q8HzQ1LER7qFThhF1qnJylioh g oN5pMmr+UCBiEDIaLRb8Zrqxj GQ+LSMmWUE2aEbmXMmjKNSmgH 6fTLBpR5z1HnOyYsK6BShmV3P h XEUypaauGq52iI3eUgHvYmP4P LdyX5CammB1KZZqsLCnZGkmHB A1V08au4G0VXKqGVMmPAG6aUJ 4 fI1jkSsmcysnjLDleKdifkLoh WjnGZozGVgqE501ZXFipFhoCv E8EOyuFZYcJD73UO63ySBia3O 5 aWD4R5XqIYWqtyvnchhjbQY2R IJnTPYvcI56sYErYBdrLv3pk2 N9n944BSBeSQAdrC87Sg3ivVp g YSJcyVJBpG8qyqyum2xhrcqfE hDiMUVfKKh9LWf9NQMlhGhgKe OiHLB9TmW3JVB9oWBdkH6giFo n jfnvnL2hMye+DaJhEEbtEA05S R13wCCpc0F7yNG5E7EkCTKbcx hpvismuNE7EKHrYWNevZ74sYX k OJbqYg0ys5F3w240ZPIcXJCuz T89Bg1ywRpxOIVskGILvE5gzd eyu6qabiumHeSlIBCbNJg9XTw 0 GPGnkKjyVjZqQZU5LeK3PFR5a TNfpE6loUfqjwalwW3aEkb+T3 M4jTD6wBCadNjbzSZ+HM48zl2 8 G2SmVgjaCoy6JMLpSFF4kGY9b Y3uHAXrJJrst6E5oZJ8Q9Wmax Hlup0ip5npRRJiEBiqX95lkAV w b0F2ZSZbvWO5QRAkzIwbXdIjn G93Oyc+TKKmwXbiw1OfSzmkf7 oem9qrcQj4QcYsNDHdlpWexCe u XCL1t6FgXt57N37yUXtxNVJvJ YVuHMDtJCUltDfjcc3suG9oTg 8+XAXyoFZ0iME7sP7lIsDoPaW 2 OWljX959EwQjqJKbByfcn2gpl 1fcuUp0IzQkILKgtzRzoEwdXU Y5m4LtFg03O3QqvMzwz6BfFiw 0 an39iQTtg0W4iBK2G0TwHAGgp abauZRedDrkEL3xLJAxfizkVB WmqC1bHCHmE8m9AdGwKxZ6DIi u J5KamtS3SSQazKWgYRBbcAUVg L2ncrxli1mngdowFpDfGTNtJD j6ZZw1JVTicGqjYaVaXWA0AmD 2 DUQ1pKXstE0fgMjkrpbugP1eO yc+UYc7v4fxfMGyXV8wnJG3OQ 97YC35fWFmb6P8jGQ4R8LwUFX p xajksuhtsUG8YSHsDGWibK85Q w4fpDpsSs7aOZPvMMP1VPKftH JxF7RjoZ4tFaNyGKSlDTYyO0B l iOIeVAiqG505FOvcBnW4BSGdb jAnQ9XsEDXxiDpyTzD4s9C5Hj 8CEI44RX01JZ46hCRln7H3rIB 9 W7NvGKZjtgnkeaevtTF7GDOdG KYfxQ27Sb7lkZkmPj9tTUKbXB S7ZDZwmXAwE8XrrS3pLhCbNSV w GEDuQ0WdaQHvSAsyD921FEnzN jP0CDJihkIzZ6ZoKIMgzRujBh Y7p7Y5Ck4MSd92UZ50XI70bQA g k7M7jEJ0X6BvIANumjnkwebmr EQ1QKOwBJZdqU19Bf5tbFbjXj 0lIUOiBMD1ZYAkyWEyY6CwrE3 y MpEuQJMhGABwZ3MdzSWvQOynL 814GPwnVxC2MYZuukHlP1BxVV KxbWkxQtG3l5E8Gn2XVKcphxx 8 L3HmZzeomSZ+KI36AFLbDP60q CCkrBLca1csfNk5QbOmWQRoRC J5fAizOQkjo4QdKGWpM60fgRY w c2U6 (more content not included)... Normal [facility] Consent for Treatmenton 06-10 Consent for Treatment [id number]#1.00CD:12 7 [facility] Heart and Vascular Office/Cl inic Noteon 07-01-2022 [...] Rosa had done a cardiac catheterization at [facility] about 1999 and 2:12 abnormal stress [...] to e (more content not included)... Normal [facility] Comment on above: Result Comment: Elec tronically Signed By: Connor RAMSEY, Carlton Lowe\.br\Date and Time Signed: 07/01/22 11:00 EST Q - KAPPA/LAMBDA LIGHT CHAIN S,FREE WITH RATIO,SERUMon 10-01-2021 KAPPA LIGHT CHAIN, FREE, SERUM 33.1 mg/L High 3.3-19.4 [facility] [employer]ator Comment on above: Order Comment: [facility] Testing performed at: [facility], [address] [place] [address], [address] [place] [address], [phone], [employer]: Osito Ortega MD [facility] Date/Time: [facility] Results Received Date/Time: [facility] Reported Date/Time: FASTING: NO Performed By: #### 1 [id number] #### [facility] Default [address] [place] [address] KAPPA/LAMBDA LIGHT CHAINS FREE WITH RATIO, SERUM 1.21 Normal 0.26-1.65 [facility] Specialist Comment on above: Order Comment: [facility] performed at: [facility], [facility], [address] [place] [address], [phone], [employer]: Osito Ortega MD [facility] Date/Time: [id number] [facility] Results Received Date/Time: [id number] [facility] Reported Date/Time: FASTING: NO Result Comment: [...] these disorders. Performed By: #### 1 0269, [id number] #### [facility] [address] [place] [address] LAMBDA LIGHT CHAIN, FREE, SERUM 27.4 mg/L High 5.7-26.3 [facility] Comment on above: Order Comment: [facility] Testing performed at: [employer], [facility], [address] [place] [address], [address] [place] [address], [address] [place] [address], [employer]: Osito Ortega MD [facility] Collection Date/Time: [facility] Results Received Date/Time: [facility] Reported Date/Time: FASTING: NO Performed By: #### 1 0269, [id number] #### [facility] [address] [place] [address] Q - PROTEIN ELECTROPHORESIS, WITH TOTAL PROTEIN AND RFX TO IFon 10-01-2021 Albumin [Mass/Vol] 3.7 g/dL Low 3.8-4.8 [facility] Comment on above: Order Comment: [facility] performed at: [employer] [facility], [address] [place] [address], [address] [place] [address], [address] [place] [address], [employer]: Osito Ortega MD [facility] Collection Date/Time: [facility] Results Received Date/Time: [facility] Reported Date/Time: FASTING: NO Performed By: #### 1 0269, [id number] #### [facility] [address] [place] [address] ALPHA 1 GLOBULIN 0.4 g/dL High 0.2-0.3 [facility] Specialist Comment on above: Order Comment: [facility] performed at: [employer] [facility], [address] [place] [address], [address] [place] [address], [address] [place] [address], [employer]: Osito Ortega MD [facility] Collection Date/Time: [facility] Results Received Date/Time: [facility] Reported Date/Time: FASTING: NO Performed By: #### 1 0269, [id number] #### [facility] [address] [place] [address] ALPHA 2 GLOBULIN 0.9 g/dL Normal 0.5-0.9 [facility] Specialist Comment on above: Order Comment: [facility] performed at: [employer], [facility], [address] [place] [address], [address] [place] [address], [address] [place] [address], [employer]: Osito Ortega MD [facility] Collection Date/Time: [facility] Results Received Date/Time: [facility] Reported Date/Time: FASTING: NO Performed By: #### 1 0269, [id number] #### [facility] [address] [place] [address] BETA 1 GLOBULIN 0.5 g/dL Normal 0.4-0.6 [facility] Specialist Comment on above: Order Comment: [facility] performed at: [employer], [facility], [address] [place] [address], [address] [place] [address], [address] [place] [address], [employer]: Osito Ortega MD [facility] Collection Date/Time: [facility] Results Received Date/Time: [facility] Reported Date/Time: FASTING: NO Performed By: #### 1 0269, [id number] #### [facility] [address] [place] [address] BETA 2 GLOBULIN 0.6 g/dL High 0.2-0.5 [facility] Specialist Comment on above: Order Comment: [facility] performed at: [employer], [facility], [facility], [address] [place] [address], [address] [place] [address], [employer]: Osito Ortega MD [facility] Collection Date/Time: [facility] Results Received Date/Time: [facility] Reported Date/Time: FASTING: NO Performed By: #### 1 0269, [id number] #### [facility] [address] [place] [address] GAMMA GLOBULIN 1.7 g/dL Normal 0.8-1.7 [facility] Comment on above: Order Comment: [facility] performed at: [employer], [facility], [address] [place] [address], [address] [place] [address], [address] [place] [address], [employer]: Osito Ortega MD [facility] Collection Date/Time: [facility] Results Received Date/Time: [facility] Reported Date/Time: FASTING: NO Performed By: #### 1 0269, [id number] #### [facility] [address] [place] [address] INTERPRETATION Suggestive of acute inflammation pattern with elevation of acute phase proteins Normal [facility] [employer] Comment on above: Order Comment: [facility] performed at: [employer], [facility], [address] [place] [address], [address] [place] [address], [address] [place] [address], [employer]: Osito Ortega MD [facility] Collection Date/Time: [facility] Results Received Date/Time: [facility] Reported Date/Time: FASTING: NO Result Comment: Sample is hemolyzed. Hemolysis may cause false elevation in the alpha-2 fraction and can induce a double alpha-2 zone. Performed By: #### 1 0269, [id number] #### [facility] [address] [place] [address] Protein [Mass/Vol] 7.8 g/dL Normal 6.1-8.1 [facility] Specialist Comment on above: Order Comment: [facility] performed at: [employer], [facility], [address] [place] [address], [address] [place] [address], [address] [place] [address], [employer]: Osito Ortega MD [facility] Collection Date/Time: [facility] Results Received Date/Time: [facility] Reported Date/Time: FASTING: NO Performed By: #### 1 0269, [id number] #### [facility] [address] [place] [address] XR knee LT 2Von 10-01-2021 XR knee LT 2V [address] [place] [address] XRay Report Signed Patient: Kay Pascal MR#: [id number] 0 : 1955 Acct:[id number] Age/Sex: 66 / F ADM Date: 10/01/21 Loc: SOXD Room: Type: [facility] Attending Dr: Elizabeth Warner [employer] Ordering Provider: MARIO Hickey Date of Service: [...] Nena Pal M.D.10/01/2021 4:49 PM Dictation Location: [place] [address] Transcribed By: [facility] 10/01/211648 Dictated By: Nena Pal MD 10/01/211645 Signed By: 10/01/211648 [facility] XR knee LT 2V [facility] [employer] Other XR knee LT 2V [facility] [employer] Other XR knee LT 2V [address] [facility] [employer] Other XR knee LT 2[place] [address] [facility] [employer] Other XR knee LT 2V XRay Report [facility] [employer] Other XR knee LT 2V Signed [facility] [employer] Other XR knee LT 2V Patient: Kay Pascal MR#: [id number] [employer] Other XR knee LT 2V 0 [employer] Other XR knee LT 2V : 1955 Acct:[id number] [employer] Other XR knee LT 2V Age/Sex: 66 / F ADM Date: 10/01/21 [employer] Other XR knee LT 2V Loc: SOXD Room: Type : [facility] [employer] Other XR knee LT 2V Attending Dr: Ct ESCOBARC [employer] Other XR knee LT 2V Ordering Provider: MARIO Hickey [employer] Other XR knee LT 2V Date of Service: 10/01/21 [employer] Other XR knee LT 2V XR/XR knee LT 2V: Acute pain of left knee [employer] Other XR knee LT 2V Copies to: Elizabeth Warner [facility] [employer] Other XR knee LT 2V LEFT KNEE - 2 views No rt [employer] Other XR knee LT 2V COMPARISON: 03/23/2020 [employer] Other XR knee LT 2V AP and lateral stand ing views were obtained. This osteopenia. A knee prosthesis is again [employer] Other XR knee LT 2V visualized. The hard martino appears intact and unchanged from the prior. No developing fractures or [employer] Other XR knee LT 2V dislocation are seen . There is small amount of joint fluid. The soft tissues are diffusely prominent [employer] Other XR knee LT 2V related to body habitus. [employer] Other XR knee LT 2V X R/XR knee LT 2V [employer] Other XR knee LT 2V IMPRESSION: [employer] Other XR knee LT 2V STABLE KNEE REPLACEMENT. [employer] Other XR knee LT 2V NO ACUTE BONY FINDINGS. [employer] Other XR knee LT 2V Impression dictated by: Nena Pal M.D.10/01/2021 4:49 PM [employer] Other XR knee LT 2V Dictation Location: [place] [address] [employer] Other XR knee LT 2V Transcribed By: PWS 10/01/21 [facility] [employer] Other XR knee LT 2V Dictated By: Nena Pal MD 10/01/21 [facility] [employer] Other XR knee LT 2V Signed By: [employer] Other XR knee LT 2V 10/01/21 [facility] Other Basic Metabolic Panelon 09-08 Calcium [Mass/Vol] 9.5 mg/dL Normal 8.2-10.2 [facility] Comment on above: Performed By: #### C BC, BMP, HEPATIC, LIPASE #### [facility] [address] [place] [address] [place] Chloride [Moles/Vol] 99 mmol/L Normal 95-114 [facility] Comment on above: Performed By: #### C BC, BMP, HEPATIC, LIPASE #### [facility] [address] CO2 [Moles/Vol] 26.3 mmol/L Normal 22.0-30.0 [facility] Comment on above: Performed By: #### C BC, BMP, HEPATIC, LIPASE #### [facility] [address] Creatinine [Mass/Vol] 0.87 mg/dL Normal 0.44-1.03 [facility] Comment on above: Performed By: #### C BC, BMP, HEPATIC, LIPASE #### [facility] [address] [place] [address] [place] Creatinine Clr Calc Pharmacy 72.87 [facility] Comment on above: Performed By: #### C BC, BMP, HEPATIC, LIPASE #### [facility] [address] Estimated GFR ( Kendal > 60 [facility] Comment on above: Result Comment: GFR estimated reference range: According to KDOQI guidelines, <60 ml/min/1.73m2 is sufficient to diagnose a patient with chronic kidney disease. Performed By: #### C BC, BMP, HEPATIC, LIPASE #### [address] Estimated GFR (Non- Am > 60 Normal [facility] Comment on above: Performed By: #### C BC, BMP, HEPATIC, LIPASE #### [address] Glucose [Mass/Vol] 99 mg/dL Normal 70-100 [facility] Comment on above: Result Comment: [place] Glucose Reference Range is dependent on time and content of last meal. Glucose of more than 200 mg/dL in a nonstressed, ambulatory subject supports the diagnosis of Diabetes Mellitus. ADA recommended reference range Performed By: #### C BC, BMP, HEPATIC, LIPASE #### [address] Potassium [Moles/Vol] 3.1 mmol/L Low 3.5-5.1 [facility] Comment on above: Performed By: #### C BC, BMP, HEPATIC, LIPASE #### [facility] [address] Sodium [Moles/Vol] 137 mmol/L Normal 136-146 [facility] Comment on above: Performed By: #### C BC, BMP, HEPATIC, LIPASE #### [address] [address] [place] Urea nitrogen [Mass/Vol] 15 mg/dL Normal 9-23 [facility] Comment on above: Performed By: #### C BC, BMP, HEPATIC, LIPASE #### [facility] [address] Complete Blood Count Auto Di ffon 09-28-2021 Basophils (Bld) [#/Vol] 0.1 10*3/uL Normal 0.0-0.2 [facility] Comment on above: Result Comment: PERF ORMED BY: [place] [address] PATHOLOGIST TAILMAN VINNIE MEJIAS M.D. Performed By: #### C BC, BMP, HEPATIC, LIPASE #### [address] Basophils/100 WBC (Bld) 0.6 % Normal . [facility] Comment on above: Performed By: #### C BC, BMP, HEPATIC, LIPASE #### [facility] [address] Eosinophils (Bld) [#/Vol] 0.2 10*3/uL Normal 0.0-0.45 [facility] Comment on above: Performed By: #### C BC, BMP, HEPATIC, LIPASE #### [address] Eosinophils/100 WBC (Bld) 2.1 % Normal . [facility] Comment on above: Performed By: #### C BC, BMP, HEPATIC, LIPASE #### [facility] [address] Erythrocyte distribution width (RBC) [Ratio] 13.8 % Normal 11.9-15.3 [facility] Comment on above: Performed By: #### C BC, BMP, HEPATIC, LIPASE #### [address] Hematocrit (Bld) [Volume fraction] 44.6 % Normal 34.0-46.4 [facility] Comment on above: Performed By: #### C BC, BMP, HEPATIC, LIPASE #### [facility] [address] Hemoglobin (Bld) [Mass/Vol] 14.6 g/dL Normal 11.8-15.4 [facility] Comment on above: Performed By: #### C BC, BMP, HEPATIC, LIPASE #### [address] Lymphocytes (Bld) [#/Vol] 1.3 10*3/uL Normal 1.00-4.8 [facility] Comment on above: Performed By: #### C BC, BMP, HEPATIC, LIPASE #### [address] Lymphocytes/100 WBC (Bld) 15.2 % Normal . [facility] Comment on above: Performed By: #### C BC, BMP, HEPATIC, LIPASE #### [address] MCH (RBC) [Entitic mass] 27.7 pg Normal 24.7-34.3 [facility] Comment on above: Performed By: #### C BC, BMP, HEPATIC, LIPASE #### [address] MCV (RBC) [Entitic vol] 84.6 fL Normal 80-100 [facility] Comment on above: Performed By: #### C BC, BMP, HEPATIC, LIPASE #### [address] Mean Corpuscular HGB Conc 32.7 g/dL Normal 32.0-35.0 [facility] Comment on above: Performed By: #### C BC, BMP, HEPATIC, LIPASE #### [address] Monocytes (Bld) [#/Vol] 0.9 10*3/uL High 0.0-0.8 [facility] Comment on above: Performed By: #### C BC, BMP, HEPATIC, LIPASE #### [address] Monocytes/100 WBC (Bld) 10.2 % Normal . [facility] Comment on above: Performed By: #### C BC, BMP, HEPATIC, LIPASE #### [address] Neutrophils (Bld) [#/Vol] 6.0 10*3/uL Normal 1.8-7.7 [facility] Comment on above: Performed By: #### C BC, BMP, HEPATIC, LIPASE #### [address] Neutrophils/100 WBC (Bld) 71.9 % Normal . [facility] Comment on above: Performed By: #### C BC, BMP, HEPATIC, LIPASE #### [address] Nucleated RBC/100 WBC (Bld) [Ratio] 0.2 % Normal 0-0.5 [facility] Comment on above: Performed By: #### C BC, BMP, HEPATIC, LIPASE #### [address] Platelet mean volume (Bld) [Entitic vol] 9.5 fL Normal 6.3-10.7 [facility] Comment on above: Performed By: #### C BC, BMP, HEPATIC, LIPASE #### [address] Platelets (Bld) [#/Vol] 227 10*3/uL Normal 150-450 [facility] Comment on above: Performed By: #### C BC, BMP, HEPATIC, LIPASE #### [address] RBC (Bld) [#/Vol] 5.27 10*6/uL High 3.60-5.00 [facility] Comment on above: Performed By: #### C BC, BMP, HEPATIC, LIPASE #### [address] WBC (Bld) [#/Vol] 8.3 10*3/uL Normal 4.5-11.0 [facility] Comment on above: Performed By: #### C BC, BMP, HEPATIC, LIPASE #### [facility] [address] [place] [address] [place] Dipstick and Microscopicon 0 09-28-2021 Appearance (U) Clear Normal Clear [facility] Comment on above: Order Comment: Name Collection Type:: Clean-Voided Midstream Performed By: #### A DDONUAPLUS, CUU #### [facility] [address] [place] [address] [place] Bacteria,Urine None Seen Normal None Seen [facility] Comment on above: Order Comment: Name Collection Type:: Clean-Voided Midstream Performed By: #### A DDONUAPLUS, CUU #### [place] [address] [place] Bilirubin,Urine Negative Normal Negative [facility] Comment on above: Order Comment: Name Collection Type:: Clean-Voided Midstream Performed By: #### A DDONUAPLUS, CUU #### [place] [address] [place] Color (U) Yellow Normal Yellow [facility] Comment on above: Order Comment: Name Collection Type:: Clean-Voided Midstream Performed By: #### A DDONUAPLUS, CUU #### [facility] [address] [place] [address] [place] Glucose Ql (U) Normal Normal Normal [facility] Comment on above: Order Comment: Name Collection Type:: Clean-Voided Midstream Performed By: #### A DDONUAPLUS, CUU #### [facility] [address] [place] [address] [place] Hyaline Casts,Urine 9-19 High 0-8 [facility] Comment on above: Order Comment: Name Collection Type:: Clean-Voided Midstream Result Comment: PERF ORMED BY: [place] [address] PATHOLOGIST TAILMAN VINNIE MEJIAS M.D. Performed By: #### A DDONUAPLUS, CUU #### [facility] [address] [place] [address] [place] Ketones Ql (U) Trace High Negative [facility] Comment on above: Order Comment: Name Collection Type:: Clean-Voided Midstream Performed By: #### A DDONUAPLUS, CUU #### [address] Leukocyte esterase Test strip Ql (U) 1+ High Negative [facility] Comment on above: Order Comment: Name Collection Type:: Clean-Voided Midstream Performed By: #### A DDONUAPLUS, CUU #### [address] Nitrite,Urine Negative Normal Negative [facility] Comment on above: Order Comment: Name Collection Type:: Clean-Voided Midstream Performed By: #### A DDONUAPLUS, CUU #### [address] Occult Blood,Urine Negative Normal Negative [facility] Comment on above: Order Comment: Name Collection Type:: Clean-Voided Midstream Result Comment: PERF ORMED BY: [place] [address] PATHOLOGIST TAILMAN VINNIE MEJIAS M.D. Performed By: #### A DDONUAPLUS, CUU #### [address] pH (U) 5.5 [pH] Normal 5.0-9.0 [facility] Comment on above: Order Comment: Name Collection Type:: Clean-Voided Midstream Performed By: #### A DDONUAPLUS, CUU #### [address] Protein,Urine Negative Normal Negative [facility] Comment on above: Order Comment: Name Collection Type:: Clean-Voided Midstream Performed By: #### A DDONUAPLUS, CUU #### [address] RBC LM.HPF (Urine sed) [#/Area] 0 /[HPF] Normal 0-4 [facility] Comment on above: Order Comment: Name Collection Type:: Clean-Voided Midstream Performed By: #### A DDONUAPLUS, CUU #### [address] Specificy Fisher,Urine 1.014 Normal 1.001-1.030 [facility] Comment on above: Order Comment: Name Collection Type:: Clean-Voided Midstream Performed By: #### A DDONUAPLUS, CUU #### [address] Squamous Epithelial Cell,Urine 5-9 High 0-2 [facility] Comment on above: Order Comment: Name Collection Type:: Clean-Voided Midstream Performed By: #### A DDONUAPLUS, CUU #### [address] Urobilinogen,Urine Normal Normal Normal [facility] Comment on above: Order Comment: Name Collection Type:: Clean-Voided Midstream Performed By: #### A DDONUAPLUS, CUU #### [address] WBC,Urine 5-9 High 0-4 [facility] Comment on above: Order Comment: Name Collection Type:: Clean-Voided Midstream Performed By: #### A DDONUAPLUS, CUU #### [address] Hepatic Panelon 09-28-2021 Albumin [Mass/Vol] 4.0 g/dL Normal 3.2-5.5 [facility] Comment on above: Performed By: #### C BC, BMP, HEPATIC, LIPASE #### [address] Albumin/Globulin [Mass ratio] 0.9 {ratio} Normal [facility] Comment on above: Performed By: #### C BC, BMP, HEPATIC, LIPASE #### [address] ALP [Catalytic activity/Vol] 56 U/L Normal 32-92 [facility] Comment on above: Performed By: #### C BC, BMP, HEPATIC, LIPASE #### [address] ALT [Catalytic activity/Vol] 22 U/L Normal 10-60 [facility] Comment on above: Performed By: #### C BC, BMP, HEPATIC, LIPASE #### [facility] [address] AST [Catalytic activity/Vol] 23 U/L Normal 10-42 [facility] Comment on above: Performed By: #### C BC, BMP, HEPATIC, LIPASE #### [facility] [address] Bilirubin [Mass/Vol] 0.5 mg/dL Normal 0.3-1.2 [facility] Comment on above: Performed By: #### C BC, BMP, HEPATIC, LIPASE #### [facility] [address] Bilirubin,Indirect Not performed Normal [facility] Comment on above: Performed By: #### C BC, BMP, HEPATIC, LIPASE #### [facility] [address] Bilirubin.indirect [Mass/Vol] mg/dL Normal 0.0-0.4 [facility] Comment on above: Performed By: #### C BC, BMP, HEPATIC, LIPASE #### [facility] [address] [place] [address] Globulin (S) [Mass/Vol] 4.6 g/dL Normal [facility] Comment on above: Performed By: #### C BC, BMP, HEPATIC, LIPASE #### [facility] [address] [place] [address] Protein [Mass/Vol] 8.6 g/dL High 6.1-7.9 [facility] Comment on above: Performed By: #### C BC, BMP, HEPATIC, LIPASE #### [facility] [address] Lipaseon 09-28-2021 Lipase [Catalytic activity/Vol] 31.0 U/L Normal 22-51 [facility] Comment on above: Result Comment: PERF ORMED BY: [place] [address] PATHOLOGIST TAILMAN VINNIE MEJIAS M.D. Performed By: #### C BC, BMP, HEPATIC, LIPASE #### [facility] [address] Urine Cultureon 09-28-2021 Bacteria identified Cx Nom (U) >100,000 colonies/ml mixed bacterial skin contaminants including mixed gram negative bacilli - 2 Days PERFORMED BY: [facility] [address] [place] [address] PATHOLOGIST TAILMAN VINNIE MEJIAS M.D. Normal [facility] Comment on above: Performed By: #### A DDONUAPLUS, CUU #### [facility] [address] SCREENING MAMMOGRAM W/OLGA LIDIA, BILATERAL*on 09-12-2021 SCREENING [...] IS VERY IMPORTANT TO YOUR HEALTH. CURRENT [employer] [employer] GUIDELINES RECOMMENDS ANNUAL MAMMOGRAPHY BEGINNING AT AGE 41. THIS FACILITY USUALLY USES A REMINDER SYSTEM TO ENSURE ALL POSITIONS RECEIVED REMINDER NOTIFICATIONS AT THE TIME BASED ON THE RECOMMENDATIONS OF THIS EXAM. Report reported and signed by Ti Gomes on 09/12/2021 1619 Normal [facility] [employer] Hemoglobin A1Con 09-10-2021 EAG 145.59 Normal [facility] [employer] Comment on above: Performed By: #### m ALBC #### [facility] [address] [place], [place] [id number] HbA1c (Bld) [Mass fraction] 6.7 % High 4.0-6.0 [facility] [employer] Comment on above: Performed By: #### m ALBC #### [facility] [address] [place], [place] [id number] Microalbumin (with Creat)on 09-10-2021 mALB <1.2 Low [facility] [employer] Comment on above: Result Comment: Unab le to calculate mALB/Crea ratio, mALB is <1.2 mg/dL mALB reference range not established. Performed By: #### m ALBC #### [facility] [address], [place] [id number] UCREA 43 mg/dL Normal 28-217 [facility] [employer] Comment on above: Performed By: #### m ALBC #### [facility] [address], [place] [id number] Q - URINALYSIS,COMPLETEon Appearance (U) CLEAR Normal CLEAR [facility] Specialist Comment on above: Order Comment: [facility] performed at: [employer], [facility], [address], [address] [place] [address], [address] [place] [address], [employer]: Osito Ortega MD [facility] Date/Time: [facility] Results Received Date/Time: [facility] Reported Date/Time: Performed By: #### 3 4F #### [facility] Default [address] [place] [address] BACTERIA NONE SEEN Normal NONE SEEN [facility] [employer] Comment on above: Order Comment: [facility] performed at: [employer], [facility], [address], [address] [place] [address], [phone], [employer]: Osito Ortega MD [facility] Date/Time: [facility] Results Received Date/Time: [facility] Reported Date/Time: Performed By: #### 3 4F #### [facility] Default [address] [place] [address] Bilirubin Ql (U) Negative Normal NEGATIVE [facility] [employer] Comment on above: Order Comment: [facility] performed at: [employer], [facility], [address], [address] [place] [address], [phone], [employer]: Osito Ortega MD [facility] Date/Time: [facility] Results Received Date/Time: [facility] Reported Date/Time: Performed By: #### 3 4F #### [facility] Default [address] [place] [address] Color (U) YELLOW Normal YELLOW [facility] [employer] Comment on above: Order Comment: [facility] performed at: [employer] [employer], [facility], [address] , [address] [place] [address], [address] [place] [address], [employer]: Osito Ortega MD [facility] Collection Date/Time: [facility] Results Received Date/Time: [facility] Reported Date/Time: Performed By: #### 3 4F #### [facility] Default [address] [place] [address] Glucose Ql (U) Negative Normal NEGATIVE [facility] Braille Translator Comment on above: Order Comment: [facility] Testing performed at: [employer], [facility], [address] , [address] [place] [address], [address] [place] [address], [employer]: Osito Ortega MD [facility] Collection Date/Time: [facility] Results Received Date/Time: [facility] Reported Date/Time: Performed By: #### 3 4F #### [facility] Default [address] [place] [address] HYALINE CAST NONE SEEN Normal NONE SEEN [facility] Braille Translator Comment on above: Order Comment: [facility] Testing performed at: [employer], [facility], [address] , [address] [place] [address], [address] [place] [address], [employer]: Osito Ortega MD [facility] Collection Date/Time: [facility] Results Received Date/Time: [facility] Reported Date/Time: Performed By: #### 3 4F #### [facility] Default [address] [place] [address] Ketones Ql (U) Negative Normal NEGATIVE [facility] [employer] Translator Comment on above: Order Comment: [facility] Testing performed at: [employer], [facility], [address] , [address] [place] [address], [address] [place] [address], [employer]: Osito Ortega MD [facility] Collection Date/Time: [facility] Results Received Date/Time: [facility] Reported Date/Time: Performed By: #### 3 4F #### [facility] Default [address] [place] [address] Leukocyte esterase Test strip Ql (U) TRACE Abnormal NEGATIVE [facility] Braille Translator Comment on above: Order Comment: [facility] Testing performed at: [employer], [facility], [address] , [address] [place] [address], [address] [place] [address], [employer]: Osito Ortega MD [facility] Collection Date/Time: [facility] Results Received Date/Time: [facility] Reported Date/Time: Performed By: #### 3 4F #### [facility] Default [address] [place] [address] Nitrite Ql (U) Negative Normal NEGATIVE [facility] Bra[employer] Translator Comment on above: Order Comment: [facility] Testing performed at: [employer], [facility], [address] , [address] [place] [address], [address] [place] [address], [employer]: Osito Ortega MD [facility] Collection Date/Time: [facility] Results Received Date/Time: [facility] Reported Date/Time: Performed By: #### 3 4F #### [facility] Default [address] [place] [address] OCCULT BLOOD Negative Normal NEGATIVE [facility] Bra[employer] Translator Comment on above: Order Comment: [facility] Testing performed at: [employer], [facility], [address] , [address] [place] [address], [address] [place] [address], [employer]: Osito Ortega MD [facility] Collection Date/Time: [facility] Results Received Date/Time: [facility] Reported Date/Time: Performed By: #### 3 4F #### [facility] Default [address] [place] [address] pH (U) 5.5 [pH] Normal 5.0-8.0 [facility] Bra[employer] Translator Comment on above: Order Comment: [facility] Testing performed at: [facility], [facility], [address] [place] [address], [address] [place] [address], [address] [place] [address], [employer]: Osito Ortega MD [facility] Collection Date/Time: [facility] Results Received Date/Time: [facility] Reported Date/Time: Performed By: #### 3 4F #### [facility] Default [address] [place] [address] Protein Ql (U) Negative Normal NEGATIVE [facility] Specialist Comment on above: Order Comment: [facility] Testing performed at: [facility], [facility], [address] [place] [address], [address] [place] [address], [address] [place] [address], [employer]: Osito Ortega MD [facility] Collection Date/Time: [facility] Results Received Date/Time: [facility] Reported Date/Time: Performed By: #### 3 4F #### [facility] Default [address] [place] [address] RBC NONE SEEN Normal < OR = 2 [facility] Braille Translator Comment on above: Order Comment: [facility] Testing performed at: [facility], [facility], [address] [place] [address], [address] [place] [address], [address] [place] [address], [employer]: Osito Ortega MD [facility] Collection Date/Time: [facility] Results Received Date/Time: [facility] Reported Date/Time: Performed By: #### 3 4F #### [facility] Default [address] [place] [address] Specific gravity (U) [Rel density] 1.008 Normal 1.001-1.035 [facility] Braille Translator Comment on above: Order Comment: [facility] Testing performed at: [employer], [facility], [address] [place] [address], [address] [place] [address], [address] [place] [address], [employer]: Osito Ortega MD [facility] Collection Date/Time: [facility] Results Received Date/Time: [facility] Reported Date/Time: Performed By: #### 3 4F #### [facility] Default [address] [place] [address] SQUAMOUS EPITHELIAL CELLS 0-5 Normal < OR = 5 [facility] Braille Translator Comment on above: Order Comment: [facility] Testing performed at: [employer], [facility], [address] [place] [address], [address] [place] [address], [address] [place] [address], [employer]: Osito Ortega MD [facility] Collection Date/Time: [facility] Results Received Date/Time: [facility] Reported Date/Time: Performed By: #### 3 4F #### [facility] Default [address] [place] [address] WBC NONE SEEN Normal < OR = 5 [facility] Braille Translator Comment on above: Order Comment: [facility] Testing performed at: [facility], [address] [place] [address], [address] [place] [address], [address] [place] [address], [employer]: Osito Ortega MD [facility] Collection Date/Time: [facility] Results Received Date/Time: [facility] Reported Date/Time: Performed By: #### 3 4F #### [facility] Default [address] [place] [address] Q - CBC W/DIFF AND PLTon BASOABS 33 cells/uL Normal 0-200 [facility] Braille Translator Comment on above: Order Comment: [facility] Testing performed at: [employer], [facility], [address] [place] [address], [address] [place] [address], [address] [place] [address], [employer]: Osito Ortega MD [facility] Collection Date/Time: [facility] Results Received Date/Time: [facility] Reported Date/Time: Performed By: #### 1 0231A, 968T, [id number], 42A #### [facility] Default [address] [place] [address] Basophils/100 WBC (Bld) 0.5 % Normal [facility] Specialist Comment on above: Order Comment: [facility] Testing performed at: [employer], [facility], [address] [facility], [address] [place] [address], [address] [place] [address], [employer]: Osito Ortega MD [facility] Collection Date/Time: [facility] Results Received Date/Time: [facility] Reported Date/Time: Performed By: #### 1 0231A, 968T, 05848R, 42A #### [facility] Default [address] [place] [address] EOSABS 358 cells/uL Normal 15-500 [facility] Comment on above: Order Comment: [facility] Testing performed at: [employer], [facility], [address] [facility], [address] [place] [address], [address] [place] [address], [employer]: Osito Ortega MD [facility] Collection Date/Time: [facility] Results Received Date/Time: [facility] Reported Date/Time: Performed By: #### 1 0231A, 968T, 83389U, 42A #### [facility] Default [address] [place] [address] Eosinophils/100 WBC (Bld) 5.5 % Normal [facility] Specialist Comment on above: Order Comment: [facility] Testing performed at: [employer], [facility], [address] [facility], [address] [place] [address], [address] [place] [address], [employer]: Osito Ortega MD [facility] Collection Date/Time: [facility] Results Received Date/Time: [facility] Reported Date/Time: Performed By: #### 1 0231A, 968T, 94361G, 42A #### [facility] Default [address] [place] [address] Erythrocyte distribution width (RBC) [Ratio] 13.0 % Normal 11.0-15.0 [facility] Braille Translator Comment on above: Order Comment: [facility] Testing performed at: [employer], [facility], [address] [place] [address], [address] [place] [address], [address] [place] [address], [employer]: Osito Ortega MD [facility] Collection Date/Time: [facility] Results Received Date/Time: [facility] Reported Date/Time: Performed By: #### 1 0231A, 968T, 62189D, 42A #### [facility] Default [address] [place] [address] Hematocrit (Bld) [Volume fraction] 39.5 % Normal 35.0-45.0 [facility] Braille Translator Comment on above: Order Comment: [facility] performed at: [employer], [facility], [address] [place] [address], [address] [place] [address], [address] [place] [address], [employer]: Osito Ortega MD [facility] Collection Date/Time: [facility] Results Received Date/Time: [facility] Reported Date/Time: Performed By: #### 1 0231A, 968T, 09780Y, 42A #### [facility] Default [address] [place] [address] Hemoglobin (Bld) [Mass/Vol] 12.9 g/dL Normal 11.7-15.5 [facility] Braille Translator Comment on above: Order Comment: [facility] Testing performed at: [employer], [facility], [address] [facility], [address] [place] [address], [address] [place] [address], [employer]: Osito Ortega MD [facility] Collection Date/Time: [facility] Results Received Date/Time: [facility] Reported Date/Time: Performed By: #### 1 0231A, 968T, 89666R, 42A #### [facility] Default [address] [place] [address] Lymphocytes (Bld) [#/Vol] 1.255 10*3/uL Normal 850-3900 [facility] Braille Translator Comment on above: Order Comment: [facility] Testing performed at: [employer], [facility], [address] [place] [address], [address] [place] [address], [address] [place] [address], [employer]: Osito Ortega MD [facility] Collection Date/Time: [facility] Results Received Date/Time: [facility] Reported Date/Time: Performed By: #### 1 0231A, 968T, 67094T, 42A #### [facility] Default [address] [place] [address] Lymphocytes/100 WBC (Bld) 19.3 % Normal [facility] Braille Translator Comment on above: Order Comment: [facility] Testing performed at: [employer], [facility], [address] [place] [address], [address] [place] [address], [address] [place] [address], [employer]: Osito Ortega MD [facility] Collection Date/Time: [facility] Results Received Date/Time: [facility] Reported Date/Time: Performed By: #### 1 0231A, 968T, 38884Q, 42A #### [facility] Default [address] [place] [address] MCH (RBC) [Entitic mass] 27.5 pg Normal 27.0-33.0 [facility] Braille Translator Comment on above: Order Comment: [facility] Testing performed at: [employer], [facility], [address] [place] [address], [address] [place] [address], [address] [place] [address], [employer]: Osito Ortega MD [facility] Collection Date/Time: [facility] Results Received Date/Time: [facility] Reported Date/Time: Performed By: #### 1 0231A, 968T, 05800A, 42A #### [facility] Default [address] [place] [address] MCHC (RBC) [Mass/Vol] 32.7 g/dL Normal 32.0-36.0 [facility] Braille Translator Comment on above: Order Comment: [facility] Testing performed at: [facility] [employer], [facility], [address] [place] [address], [address] [place] [address], [address] [place] [address], [employer]: Osito Ortega MD [facility] Collection Date/Time: [facility] Results Received Date/Time: [facility] Reported Date/Time: Performed By: #### 1 0231A, 968T, 59573I, 42A #### [facility] Default [address] [place] [address] MCV (RBC) [Entitic vol] 84.2 fL Normal 80.0-100.0 [facility] Braille Translator Comment on above: Order Comment: [facility] performed at: [employer], [facility], [address] [place] [address], [address] [place] [address], [address] [place] [address], [employer]: Osito Ortega MD [facility] Collection Date/Time: [facility] Results Received Date/Time: [facility] Reported Date/Time: Performed By: #### 1 0231A, 968T, 91204G, 42A #### [facility] Default [address] [place] [address] MONOABS 663 cells/uL Normal 200-950 [facility] Braille Translator Comment on above: Order Comment: [facility] Testing performed at: [employer], [facility], [address] [place] [address], [address] [place] [address], [address] [place] [address], [employer]: Osito Ortega MD [facility] Collection Date/Time: [facility] Results Received Date/Time: [facility] Reported Date/Time: Performed By: #### 1 0231A, 968T, 33088I, 42A #### [facility] Default [address] [place] [address] Monocytes/100 WBC (Bld) 10.2 % Normal [facility] Braille Translator Comment on above: Order Comment: [facility] Testing performed at: [employer], [facility], [address] [place] [address], [address] [place] [address], [address] [place] [address], [employer]: Osito Ortega MD [facility] Collection Date/Time: [facility] Results Received Date/Time: [facility] Reported Date/Time: Performed By: #### 1 0231A, 968T, 82068W, 42A #### [facility] Default [address] [place] [address] Neutrophils (Bld) [#/Vol] 4.193 10*3/uL Normal 3369-7910 [facility] Braille Translator Comment on above: Order Comment: [facility] Testing performed at: [facility], [employer] [facility], [address] [place] [address], [address] [place] [address], [address] [place] [address], [employer]: Osito Ortega MD [facility] Collection Date/Time: [facility] Results Received Date/Time: [facility] Reported Date/Time: Performed By: #### 1 0231A, 968T, 43043N, 42A #### [facility] Default [address] [place] [address] Neutrophils/100 WBC (Bld) 64.5 % Normal [facility] Braille Translator Comment on above: Order Comment: [facility] Testing performed at: [employer], [facility], [address] [facility], [address] [place] [address], [address] [place] [address], [employer]: Osito Ortega MD [facility] Collection Date/Time: [facility] Results Received Date/Time: [facility] Reported Date/Time: Performed By: #### 1 0231A, 968T, 19092F, 42A #### [facility] Default [address] [place] [address] Platelet mean volume (Bld) [Entitic vol] 12.0 fL Normal 7.5-12.5 [facility] Braille Translator Comment on above: Order Comment: [facility] Testing performed at: [facility] [facility], [facility], [address] [facility], [address] [place] [address], [address] [place] [address], [employer]: Osito Ortega MD [facility] Collection Date/Time: [facility] Results Received Date/Time: [facility] Reported Date/Time: Performed By: #### 1 0231A, 968T, 63933U, 42A #### [facility] Default [address] [place] [address] Platelets (Bld) [#/Vol] 214 10*3/uL Normal 140-400 [facility] Comment on above: Order Comment: [facility] Testing performed at: [employer], [facility], [address] , [address] [place] [address], [id number], [employer]: Osito Ortega MD [facility] Collection Date/Time: [facility] Results Received Date/Time: [facility] Reported Date/Time: Performed By: #### 1 0231A, 968T, 74114B, 42A #### [facility] Default [address] [place] [address] RBC (Bld) [#/Vol] 4.69 10*6/uL Normal 3.80-5.10 [facility] Comment on above: Order Comment: [facility] Testing performed at: [employer], [facility], [address], [address] [place] [address], [address] [place] [address], [employer]: Osito Ortega MD [facility] Collection Date/Time: [facility] Results Received Date/Time: [facility] Reported Date/Time: Performed By: #### 1 0231A, 968T, 62424J, 42A #### [facility] Default [address] [place] [address] WBC (Bld) [#/Vol] 6.5 10*3/uL Normal 3.8-10.8 [facility] Comment on above: Order Comment: [facility] Testing performed at: [employer], [facility], [address], [address] [place] [address], [address] [place] [address], [employer]: Osito Ortega MD [facility] Collection Date/Time: [facility] Results Received Date/Time: [facility] Reported Date/Time: Performed By: #### 1 0231A, 968T, 66595T, 42A #### [facility] Default [address] [place] [address] Q - COMPREHENSIVE METABOLIC PANEL W/EGFRon 05-14-2021 Albumin [Mass/Vol] 3.9 g/dL Normal 3.6-5.1 [facility] Comment on above: Order Comment: [facility] Testing performed at: [employer], [facility], [address] [place] [address], [address] [place] [address], [address] [place] [address], [employer]: Osito Ortega MD [facility] Collection Date/Time: [facility] Results Received Date/Time: [facility] Reported Date/Time: Performed By: #### 1 0231A, 968T, 79574R, 42A #### [facility] Default [address] [place] [address] Albumin/Globulin [Mass ratio] 1.1 {ratio} Normal 1.0-2.5 [facility] Specialist Comment on above: Order Comment: [facility] Testing performed at: [employer], [facility], [address] [facility], [address] [place] [address], [id number], [employer]: Osito Ortega MD [facility] Collection Date/Time: [facility] Results Received Date/Time: [facility] Reported Date/Time: Performed By: #### 1 0231A, 968T, 54141R, 42A #### [facility] Default [address] [place] [address] ALP [Catalytic activity/Vol] 63 U/L Normal 37-153 [facility] Braille Translator Comment on above: Order Comment: [facility] Testing performed at: [employer], [facility], [address] [facility], [address] [place] [address], [id number], [employer]: Osito Ortega MD [facility] Collection Date/Time: [facility] Results Received Date/Time: [facility] Reported Date/Time: Performed By: #### 1 0231A, 968T, 48317F, 42A #### [facility] Default [address] [place] [address] ALT [Catalytic activity/Vol] 18 U/L Normal 6-29 [facility] Braille Translator Comment on above: Order Comment: [facility] Testing performed at: [employer], [facility], [address] [place] [address], [address] [place] [address], [address] [place] [address], [employer]: Osito Ortega MD [facility] Collection Date/Time: [facility] Results Received Date/Time: [facility] Reported Date/Time: Performed By: #### 1 0231A, 968T, 74750B, 42A #### [facility] Default [address] [place] [address] AST [Catalytic activity/Vol] 19 U/L Normal 10-35 [facility] Braille Translator Comment on above: Order Comment: [facility] Testing performed at: [employer], [facility], [address] [place] [address], [address] [place] [address], [address] [place] [address], [employer]: Osito Ortega MD [facility] Collection Date/Time: [facility] Results Received Date/Time: [facility] Reported Date/Time: Performed By: #### 1 0231A, 968T, 82902K, 42A #### [facility] Default [address] [place] [address] Bilirubin [Mass/Vol] 0.4 mg/dL Normal 0.2-1.2 [facility] Braille Translator Comment on above: Order Comment: [facility] performed at: [employer], [facility], [address] [place] [address], [address] [place] [address], [address] [place] [address], [employer]: Osito Ortega MD [facility] Collection Date/Time: [facility] Results Received Date/Time: [facility] Reported Date/Time: Performed By: #### 1 0231A, 968T, 93149Y, 42A #### [facility] Default [address] [place] [address] BUN/CREA 29 NOT APPLICABLE Normal 6-22 [facility] Comment on above: Order Comment: [facility] Testing performed at: [employer], [facility], [address] [facility], [address] [place] [address], [address] [place] [address], [employer]: Osito Ortega MD [facility] Collection Date/Time: [facility] Results Received Date/Time: [facility] Reported Date/Time: Performed By: #### 1 0231A, 968T, 50418V, 42A #### [facility] Default [address] [place] [address] Calcium [Mass/Vol] 9.2 mg/dL Normal 8.6-10.4 [facility] Comment on above: Order Comment: [facility] Testing performed at: [employer], [facility], [address] [facility], [address] [place] [address], [address] [place] [address], [employer]: Osito Ortega MD [facility] Collection Date/Time: [facility] Results Received Date/Time: [facility] Reported Date/Time: Performed By: #### 1 0231A, 968T, 05031N, 42A #### [facility] Default [address] [place] [address] Chloride [Moles/Vol] 103 mmol/L Normal 98-110 [facility] Comment on above: Order Comment: [facility] Testing performed at: [employer], [facility], [address] [facility], [address] [place] [address], [address] [place] [address], [employer]: Osito Ortega MD [facility] Collection Date/Time: [facility] Results Received Date/Time: [facility] Reported Date/Time: Performed By: #### 1 0231A, 968T, 29186P, 42A #### [facility] Default [address] [place] [address] CO2 [Moles/Vol] 32 mmol/L Normal 20-32 [facility] Specialist Comment on above: Order Comment: [facility] performed at: [employer], [facility], [address] [place] [address], [address] [place] [address], [address] [place] [address], [employer]: Osito Ortega MD [facility] Collection Date/Time: [facility] Results Received Date/Time: [facility] Reported Date/Time: Performed By: #### 1 1A, 968T, [id number], 42A #### [facility] Default [address] [place] [address] Creatinine [Mass/Vol] 0.63 mg/dL Normal 0.50-0.99 [facility] Comment on above: Order Comment: [facility] performed at: [employer], [facility], [address] [place] [address], [address] [place] [address], [address] [place] [address], [employer]: Osito Ortega MD [facility] Collection Date/Time: [facility] Results Received Date/Time: [facility] Reported Date/Time: Result Comment: For patients >49 years of age, the reference limit for Creatinine is approximately 13% higher for people identified as -Iraqi. Performed By: #### 1 0231A, 968T, 21252U, 42A #### [facility] Default [address] [place] [address] eGFRAA 115 mL/min/1.73m2 Normal > OR = 60 [facility] Comment on above: Order Comment: [facility] Testing performed at: [employer], [facility], [address] [place] [address], [address] [place] [address], [address] [place] [address], [employer]: Osito Ortega MD [facility] Collection Date/Time: [facility] Results Received Date/Time: [facility] Reported Date/Time: Performed By: #### 1 0231A, 968T, 56859X, 42A #### [facility] Default [address] [place] [address] eGFRNAA 95 mL/min/1.73m2 Normal > OR = 60 [facility] Specialist Comment on above: Order Comment: [facility] Testing performed at: [employer], [facility], [address] [facility], [address] [place] [address], [address] [place] [address], [employer]: Osito Ortega MD [facility] Collection Date/Time: [facility] Results Received Date/Time: [facility] Reported Date/Time: Performed By: #### 1 0231A, 968T, 45663O, 42A #### [facility] Default [address] [place] [address] Globulin (S) [Mass/Vol] 3.6 g/dL Normal 1.9-3.7 [facility] [employer] Comment on above: Order Comment: [facility] Testing performed at: [employer], [facility], [address] [facility], [address] [place] [address], [address] [place] [address], [employer]: Osito Ortega MD [facility] Collection Date/Time: [facility] Results Received Date/Time: [facility] Reported Date/Time: Performed By: #### 1 0231A, 968T, 48334K, 42A #### [facility] Default [address] [place] [address] Glucose [Mass/Vol] 116 mg/dL High 65-99 [facility] Comment on above: Order Comment: [facility] Testing performed at: [employer], [facility], [address] [facility], [address] [place] [address], [address] [place] [address], [employer]: Osito Ortega MD [facility] Collection Date/Time: [facility] Results Received Date/Time: [facility] Reported Date/Time: Result Comment: Fasting reference interval For someone without known diabetes, a glucose value between 100 and 125 mg/dL is consistent with prediabetes and should be confirmed with a follow-up test. Performed By: #### 1 0231A, 968T, 19651T, 42A #### [facility] Default [address] [place] [address] Potassium [Moles/Vol] 4.3 mmol/L Normal 3.5-5.3 [facility] Specialist Comment on above: Order Comment: [facility] Testing performed at: [employer], [facility], [address] [place] [address], [address] [place] [address], [address] [place] [address], [employer]: Osito Ortega MD [facility] Collection Date/Time: [facility] Results Received Date/Time: [facility] Reported Date/Time: Performed By: #### 1 0231A, 968T, 45570H, 42A #### [facility] Default [address] [place] [address] Protein [Mass/Vol] 7.5 g/dL Normal 6.1-8.1 [facility] Specialist Comment on above: Order Comment: [facility] Testing performed at: [employer], [facility], [address] [place] [address], [address] [place] [address], [address] [place] [address], [employer]: Osito Ortega MD [facility] Collection Date/Time: [facility] Results Received Date/Time: [facility] Reported Date/Time: Performed By: #### 1 0231A, 968T, 20584K, 42A #### [facility] Default [address] [place] [address] Sodium [Moles/Vol] 140 mmol/L Normal 135-146 [facility] [employer] Comment on above: Order Comment: [facility] Testing performed at: [employer], [facility], [address] [place] [address], [address] [place] [address], [address] [place] [address], [employer]: Osito Ortega MD [facility] Collection Date/Time: [facility] Results Received Date/Time: [facility] Reported Date/Time: Performed By: #### 1 0231A, 968T, 41507K, 42A #### [facility] Default [address] [place] [address] Urea nitrogen [Mass/Vol] 18 mg/dL Normal 7-25 [facility] [employer] Comment on above: Order Comment: [facility] Testing performed at: [employer], [employer] [facility], [address] [facility], [address] [place] [address], [address] [place] [address], [employer]: Osito Ortega MD [facility] Collection Date/Time: [facility] Results Received Date/Time: [facility] Reported Date/Time: Performed By: #### 1 0231A, 968T, 35969L, 42A #### [facility] Default [address] [place] [address] Q - HEMOGLOBIN A1C WITH EAGo n 05-14-2021 eAG (mmol/L) 8.1 mmol/L Normal [facility] [employer] Comment on above: Order Comment: [facility] Testing performed at: [employer], [facility], [address] , [address] [place] [address], [address] [place] [address], [employer]: Osito Ortega MD [facility] Collection Date/Time: [facility] Results Received Date/Time: [facility] Reported Date/Time: Performed By: #### 1 0231A, 968T, 03629H, 42A #### [facility] Default [address] [place] [address] HEMOGLOBIN A1c 6.7 % of total Hgb High <5.7 [facility] Comment on above: Order Comment: [facility] Testing performed at: [employer], [facility], [address] [facility], [address] [place] [address], [address] [place] [address], [employer]: Osito Ortega MD [facility] Collection Date/Time: [facility] [...] children. Performed By: #### 1 0231A, 968T, 07005P, 42A #### [facility] Default [address] [place] [address] Magnesium [Mass/Vol] 146 mg/dL Normal [facility] [employer] Comment on above: Order Comment: [facility] Testing performed at: [employer] [facility], [address] [place] [address], [address] [place] [address], [address] [place] [address], [employer]: Osito Ortega MD [facility] Collection Date/Time: [facility] Results Received Date/Time: [facility] Reported Date/Time: Performed By: #### 1 0231A, 968T, 10417J, 42A #### [facility] Default [address] [place] [address] Q - Lipid Panelon 05-14-2021 Cholesterol [Mass/Vol] 146 mg/dL Normal <200 [facility] [employer] Comment on above: Order Comment: [facility] Testing performed at: [employer] [facility], [address] [place] [address], [address] [place] [address], [phone], [employer]: Osito Ortega MD [facility] Collection Date/Time: [facility] Results Received Date/Time: [facility] Reported Date/Time: Performed By: #### 1 0231A, 968T, 22802J, 42A #### [facility] Default [address] [place] [address] Cholesterol in HDL [Mass/Vol] 43 mg/dL Low > OR = 50 [facility] [employer] Comment on above: Order Comment: [facility] Testing performed at: [employer], [facility], [address] [place] [address], [address] [place] [address], [address] [place] [address], [employer]: Osito Ortega MD [facility] Collection Date/Time: [facility] Results Received Date/Time: [facility] Reported Date/Time: Performed By: #### 1 0231A, 968T, 41261P, 42A #### [facility] Default [address] [place] [address] Cholesterol in LDL [Mass/Vol] 80 mg/dL Normal [facility] [employer] Comment on above: Order Comment: [facility] Testing performed at: [employer], [facility], [address] [facility], [address] [place] [address], [address] [place] [address], [employer]: Osito Ortega MD [facility] Collection Date/Time: [facility] [...] LDL-C. Rafat EDMOND et al. CHRISTIANO. 2013;310(19): 2609-7263 (http://education.Naonext.Docalytics/faq/TDO408) Performed By: #### 1 0231A, 968T, 27249Y, 42A #### [facility] Default [address] [place] [address] Cholesterol.total/ Cholesterol in HDL [Mass ratio] 3.4 {ratio} Normal <5.0 [facility] [employer] Comment on above: Order Comment: [facility] Testing performed at: [employer], [facility], [address] [facility], [address] [place] [address], [phone], [employer]: Osito Ortega MD [facility] Collection Date/Time: [facility] Results Received Date/Time: [facility] Reported Date/Time: Performed By: #### 1 0231A, 968T, 92460B, 42A #### [facility] Default [address] [place] [address] NON HDL CHOLESTEROL 103 mg/dL (calc) Normal <130 [facility] [employer] Comment on above: Order Comment: [facility] Testing performed at: [facility], [facility], [address] [facility], [address] [place], [address], [employer]: Osito Ortega MD [facility] Collection Date/Time: [facility] Results Received Date/Time: [facility] Reported Date/Time: Result Comment: For patients with diabetes plus 1 major ASCVD risk factor, treating to a non-HDL-C goal of <100 mg/dL (LDL-C of <70 mg/dL) is considered a therapeutic option. Performed By: #### 1 0231A, 968T, 98925Y, 42A #### [facility] Default [address] [place] [address] Triglyceride [Mass/Vol] 126 mg/dL Normal <150 [facility] [employer] Comment on above: Order Comment: [facility] Testing performed at: [employer], [facility], [address] [facility], [address] [place] [address], [address] [place] [address], [employer]: Osito Ortega MD [facility] Collection Date/Time: [facility] Results Received Date/Time: [facility] Reported Date/Time: Performed By: #### 1 0231A, 968T, 69270D, 42A #### [facility] Default [address] [place] [address] VEIN CENTER CONSULTATIONo n 04-12-2019 [facility] VE[facility] CENTER CONSULTATION Patient: KAY PASCAL Exam Date: 04/12/2019 : 1955 Gender:F Ordering : DR AMY VU M.D. 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 The patient describes [...] significant arterial disease 5. C4a, [place], , [place] PLAN: 1. Use of compression stockings 2. Elevated legs and increased physical activity symptomatic relief 3. EVLT of great saphenous vein bilaterally followed by Varithena ablation of the branch saphenous grade varicose veins followed by sclerosis of spider veins. Nurse notes, history and physical were reviewed and confirmed, see attached forms. The nurse was present throughout the physical exam and consultation Dictated by: Ti Garrido M.D. on 04/12/2019 at 11:49 Approved by: Ti Garrido M.D. on 04/12/2019 at 12:03 Normal [facility] VC VENOUS REFLUX SOHAN LMTon 1 06-12-2018 VC VENOUS REFLUX SOHAN LMT Patient: KAY PASCAL Exam Date: 04/12/2019 : 1955 Gender:F Ordering : DR AMY VU M.D. Admission #: [id number] Family : Order #: [id number] CLICK HERE TO VIEW EXAM RADIOLOGY REPORT [...] DVT. Compressibility: Normal Flow: Normal Preforator: 4.3mm lead sewage plant operator visualized off the mid lower leg GSV. [...] or chronic DVT Compressibility: Normal Flow: Normal Floor Technician: No perforators visualized. Tech Note: Incompetent SFJ/GSV, [...] venous ablation should be considered. Dictated by: Ti Garrido M.D. on 04/12/2019 at 11:14 Approved by: Ti Garrido M.D. on 04/12/2019 at 11:17 [facility] (CARDFT) KAY PASCAL ([id number]) 1955 [facility] Time Provider [facility]12/03/17 1:00 PM JOSE CLAYTON During your visit today, we recorded the following information about you: Pulse Respiration Blood pressure Weight 69/minute 18/minute 153/56 112.5 kg Height 1.499 Edgar Clayton MD 12/03/2017 1:38 PM [facility] InstituteRobunm [facility] and Celina Taveras Department of Cardiovascular MedicineOUTPATIENT VISIT DATE 12/03/17OUTPATIENT VISIT TYPENEWPRIMARY CARE PHYSICIAN:Shiva Turner, [id number] [place] [address] [address]Kureb: [phone]: [phone] COMPLAINT:Patient presents with:CARD New Patient ConsultHISTORY OF PRESENT ILLNESS:Kay Pascal is a 62 year old female with a past cardiac history of mild tomoderate aortic stenosis and hypertension.12/03/2017Th e patient presents today as a new patient [...] 01/02/15- Alcohol use NoNo family history on file.ALLERGIES:ALLERGIESA llergen Reactions- Celebrex [Celecoxib] Hives- Codeine Unknown- Erythromycin Rash mycins - Penicillins Anaphylaxis, Unknown ok with keflex- Silver Nitrate Hives- Sulfa (Sulfonamide * Hives- Zpak [Azithromycin] HivesMEDICATIONS:ibuprofe n (MOTRIN) 200 mg tablet Take 2 tablets [...] 1 tablet by mouth once daily as needed.budesonide-formote rol 160-4.5 mcg/actuation inhaler Inhale 2 Puffs asinstructed [...] Soft, nontender, bowel sounds normal, no palpable hepatosplenomegalyExtremi ties: Normal pulses in distal lower extremities. Mild [...] via U.S. Mail.This document was generated utilizing [employer]. I have reviewed andverified that the contents of the document are accurate with the exception ofminor grammatical, spelling and punctuation errors.CONTACT INFORMATION:Thank you for allowing us to participate in the care of this very pleasantpatient. Please free to contact us if we can be of any further assistance.Jose Clayton MD, [facility]ALTHCARECRroberts chapelt and Celina Garciapartment of Cardiovascular MedicineToledo Hospitalrt and Vascular InstituteJason Ville [address] [place], [place] [address]Opyunu: [phone] Referring Provider: SHIVA TURNER [[id number]]Allergies As of Date: 12/03/2017 Noted Allergy ReactionCELEBREX (CELECOXIB) 10/25/2011 4 - HivesCODEINE 10/25/2011 16 - UnknownERYTHROMYCIN 06/28/2015 2 - Rash Comments: mycins PENICILLINS 10/25/2011 10 - Anaphylaxis 16 - Unknown Comments: ok with keflexSILVER NITRATE 10/25/2011 4 - HivesSULFA (SULFONAMIDE ANTIBIOTICS) 10/25/2011 4 - HivesZPAK (AZITHROMYCIN) 10/25/2011 4 - HivesDate Reviewed: 12/03/2017Reviewed by: Jose Clayton - Fully AssessedReason for Visit: CARD [...] Status:Closed by EDITH CLAYTON MD on 12/03/17 [facility] PROGRESSon 12-03-2017 PROGRESS HNO ID: [id number] thor: Jose Proervice: (none)Author Type: PhysicianType: Progress NotesFiled: 12/03/2017 1:38 PMNote Text:Heart and Vascular InstitutePansey and Celina [facility] Department of Cardiovascular MedicineOUTPATIENT VISIT DATE 12/03/17OUTPATIENT VISIT TYPENEWPRIMARY CARE PHYSICIAN:Shiva Turner, [id number] [facility] [address] [address]Kdizq: [phone]: [phone] COMPLAINT:Patient presents with:CARD New Patient ConsultHISTORY OF PRESENT ILLNESS:Kay Pascal is a 62 year old female with a past cardiac history of mildto moderate aortic stenosis and hypertension.12/03/2017Th e patient presents today as a new patient [...] 01/02/15- Alcohol use NoNo family history on file.ALLERGIES:ALLERGIESA llergen Reactions- Celebrex [Celecoxib] Hives- Codeine Unknown- Erythromycin Rash mycins - Penicillins Anaphylaxis, Unknown ok with keflex- Silver Nitrate Hives- Sulfa (Sulfonamide * Hives- Zpak [Azithromycin] HivesMEDICATIONS:ibuprofe n (MOTRIN) 200 mg tablet Take 2 tablets [...] Take 1 tablet by mouth once daily asneeded.budesonide-formo terol 160-4.5 mcg/actuation inhaler Inhale 2 Puffs asinstructed [...] best at both upper sternal borders. No carotidbruits.Respiratory : Clear to auscultation bilaterally. Good respiratory effort.GI: Soft, nontender, bowel sounds normal, no palpable hepatosplenomegalyExtremi ties: Normal pulses in distal lower extremities. Mild [...] physicianvia U.S. Mail.This document was generated utilizing Skyhigh Networksation. I have reviewedand verified that the contents of the document are accurate with theexception of minor grammatical, spelling and punctuation errors.CONTACT INFORMATION:Thank you for allowing us to participate in the care of this very pleasantpatient. Please free to contact us if we can be of any furtherassistance.Jose Clayton MD, FACCRobert and Celina Garciamemorial medical centerment of Cardiovascular MedicineHeart and Vascular InstituteSouthern [place] Medical Center[address]Mount [place], [place] [address]Kqegre: [phone] Normal [facility] Vital Signs Date Time Vital Sign Value Performing Clinician Facility 10-07-2022 11:42-0400 Blood Pressure Location Mara Evans [facility] 10-07-2022 11:42-0400 Diastolic blood pressure 78 mm[Hg] Mara Evans [facility] 10-07-2022 11:42-0400 Heart rate 72 /min [facility] 10-07-2022 11:42-0400 SaO2% (BldA) [Mass fraction] 93 % Mara Evans [facility] 10-07-2022 11:42-0400 Systolic blood pressure 136 mm[Hg] Mara Evans [facility] 08-19-2022 09:23-0400 Blood Pressure Location Shira MCCURDY [facility] 08-19-2022 09:23-0400 Diastolic blood pressure 72 mm[Hg] Shiraorlando MOSQUERAG [facility] 08-19-2022 09:23-0400 Heart rate 72 /min Shira STANG [facility] 08-19-2022 09:23-0400 SaO2% (BldA) [Mass fraction] 97 % Shira STANG [facility] 08-19-2022 09:23-0400 Systolic blood pressure 130 mm[Hg] Shira STANG [facility] 07-01-2022 10:25-0500 Blood Pressure Location Carlton Ryan [facility] 07-01-2022 10:25-0500 Diastolic blood pressure 64 mm[Hg] Carlton Ryan [facility] 07-01-2022 10:25-0500 Heart rate 68 /min Carlton Ryan [facility] 07-01-2022 10:25-0500 SaO2% (BldA) [Mass fraction] 96 % Cartlon Ryan [facility] 07-01-2022 10:25-0500 Systolic blood pressure 122 mm[Hg] Carlton Ryan [facility] 08-09-2021 15:30-0500 Body height 144.78 cm Anabel Kyle Other [employer] Other 08-09-2021 15:30-0500 Body mass index (BMI) [Ratio] 55.82 kg/m2 Anabel Kyle Other [employer] Other 08-09-2021 15:30-0500 Body temperature 96.6 [degF] Anabel Kyle Other [employer] Other 08-09-2021 15:30-0500 Body weight 117.03 kg Anabel Kyle Other [facility] Other 08-09-2021 15:30-0500 Diastolic blood pressure 66 mm[Hg] Anabel Kyle Other [facility] Other 08-09-2021 15:30-0500 SaO2% (BldA) [Mass fraction] 97 % Anabel Ykle Other [facility] Other 08-09-2021 15:30-0500 Systolic blood pressure 140 mm[Hg] Anabel Kyle Other [place] [employer] Other Encounters Encounter Date Encounter Type Care Provider Facility Start: 02-12-2024 End: 02-12-2024 ambulatory SHIVA TURNER Not Available Start: 12-23-2023 End: 12-23-2023 ambulatory BHUMI WEEKS Not Available Start: 12-16-2023 End: 12-16-2023 ambulatory SHIVA TURNER Not Available Start: 10-09-2023 End: 10-10-2023 ambulatory [facility] Start: 10-08-2023 End: 10-08-2023 ambulatory BUHMI WEEKS Not Available Start: 09-29-2023 End: 09-29-2023 ambulatory BHUMI WEEKS Not Available Start: 09-23-2023 End: 09-23-2023 ambulatory [facility] Start: 09-18-2023 ambulatory SHIVA TURNER [facility] Start: 09-01-2023 End: 09-01-2023 ambulatory SHIVA TURNER Not Available Start: 08-18-2023 End: 08-18-2023 ambulatory SHIVA TURNER Not Available Start: 05-19-2023 End: 05-19-2023 ambulatory SHIVA RYDERK Not Available Start: 10-07-2022 End: 10-08-2022 ambulatory XXXX NONE Facility:[facility] Start: 10-07-2022 End: 10-07-2022 Patient encounter procedure Mara Evans [facility] Start: 09-02-2022 End: 09-03-2022 ambulatory Mara MileyLaurita Vicentean Facility:[facility] Start: 09-02-2022 End: 09-02-2022 Patient encounter procedure Mara Katie Evans [facility] Start: 08-19-2022 End: 08-20-2022 ambulatory XXXX NONE Facility:[facility] Start: 08-19-2022 End: 08-19-2022 Patient encounter procedure Shira MCCURDY [facility] Start: 08-12-2022 End: 08-13-2022 ambulatory Carlton Ryan Facility:[facility] Start: 08-12-2022 End: 08-12-2022 Patient encounter procedure Carlton Ryan [facility] Start: 07-01-2022 End: 07-02-2022 ambulatory Carlton Ryan Facility:[facility] Start: 07-01-2022 End: 07-01-2022 Patient encounter procedure Carlton Ryan [facility] Start: 10-01-2021 End: 10-01-2021 ambulatory Elizabeth Warner Other [facility] Other Start: 10-01-2021 Office outpatient vi sit 15 minutes Elizabeth Warner [facility] Start: 08-09-2021 End: 08-09-2021 ambulatory Anabel Kyle Other [facility] Other Start: 08-09-2021 Office outpatient vi sit 25 minutes Anabel Kyle [facility] Start: 04-12-2019 End: 04-13-2019 Patient encounter procedure AMY VU Facility:[facility] Start: 04-05-2019 End: 04-05-2019 Patient encounter procedure FARIDA WILLAMS Facility:[facility] Start: 12-03-2017 End: 12-10-2017 Ambulatory JOSE CLAYTON [facility] [place] Procedures Date Procedure Procedure Detail Performing Clinician section Carlton Frye on Comment on above: 1979 Cholecystectomy Carlton cohen Comment on above: 1998 Knee region structur e (body structure) Carlton Ryan Comment on above: Full Left knee Repla cement Partial Right knee r eplacement Ligation of fallopian tube D kamran Ryan Comment on above: 1979 Upper limb structure (body structure) Carlton Connor Comment on above: Left Arm surgery Payers Date Payer Category Payer Medicare 2021 Medicare [id number] 2.1 [id number] 2021 Private Health Insurance [id number] 2021 Private Health Insurance [id number] 1959 Unknown [id number] 1955 Unknown [id number] 2.16.84 0.1.048496.3.579.2.593 1955 Unknown [id number] 2.16.84 0.1.387706.3.579.2.593 1955 Unknown [id number] 2.16.8 40.1.081521.3.579.2.727 1955 Unknown [id number] 2.16.8 40.1.667605.3.579.2.727 1955 Unknown [id number] 2.16.8 40.1.679861.3.579.2.727 1955 Unknown [id number] 2.16.8 40.1.292261.3.579.2.727 1955 Unknown [id number] 2.16.8 40.1.293019.3.579.2.727 1955 Unknown [id number] 2.16.8 40.1.553934.3.579.2.727 1955 Unknown [id number] 2.16.8 40.1.104781.3.579.2.1286 1955 Unknown [id number] 2.16.8 40.1.891097.3.579.2.1286 1955 Unknown [id number] 2.16.8 40.1.717294.3.579.2.1286 1955 Unknown [id number] 2.16.8 40.1.194114.3.579.2.1286 1955 Unknown [id number] 2.16.84 0.1.548872.3.579.2.1259 1955 Unknown [id number] 2.16.84 0.1.372383.3.579.2.1259 1955 Unknown [id number] 2.16.84 0.1.125314.3.579.2.1259 1955 Unknown [id number] 2.16.84 0.1.453577.3.579.2.1259 1955 Unknown [id number] 2.16.84 0.1.945893.3.579.2.1259 1955 Unknown [id number] 2.16.84 0.1.572685.3.579.2.1259 1955 Unknown [id number] 2.16.84 0.1.659951.3.579.2.1259 1955 Unknown [id number] 2.16.84 0.1.334363.3.579.2.1259 1955 Unknown [id number] 2.16.84 0.1.223891.3.579.2.1259 1955 Unknown [id number] 2.16.840 .1.211401.3.579.2.1259 Medicare [id number] 2.1 [id number] Social History Date Type Detail Facility Sex Assigned At [facility] Start: 07-01-2022 End: 10-07-2022 Tobacco smoking status Ex-smoker (finding) [facility] Comment on above: Patient quit 42 year s ago. Tobacco smoking status Never [facility] Comment on above: Patient quit 42 year s ago. Functional Status Date Assessment Result Facility 10-07-2022 Functional Status No [facility] 08-19-2022 Functional Status No [facility] 07-01-2022 Functional Status No [facility] Clinical Notes 08-09-2021 to 10-08-2023 LaboratoryRadiologyLaboratory Note Date & Type Note Facility 10-08-2023 Note FINDINGS: Sonographic evaluation of the left breast was performed, correlation made with the same day mammogram and recent mammogram September 29, 2023. 4 x 5 x 5 mm 2 o'clock hypoechogenic oval-shaped nodule, 4 cm from the nipple, slight hilar defect suggests intra-mammary lymph node. No surrounding distortion. IMPRESSION: BIRADS 3 - Probably benign. Recommend follow-up mammography and ultrasonography in 4 months TRANSCRIBED BY: ELECTRONICALLY SIGNED BY: Bahman Fortune MD Not Available 08-12-2022 Note Echocardiology Procedure Exam Date/Time Accession # Ordering Echo Transthoracic 08/12/2022 09:28 EST [id number] Carlton Ryan MD Complete CPT code 06131 [id number] Reason for Exam (Echo Transthoracic Complete) R06.09;Dyspnea Report [facility] [address] [place] [address] Adult Echocardiogram Report Name: KAY PASCAL Study Date: 08/12/2022 08:26 AM BP: 128/66 mmHg Patient Location: [facility] HR: 59 : 1955 Gender: Female Height: 63.5 in Age: 67 yrs Ethnicity: [facility] Weight: 240 lb Reason For Study: Dyspnea BSA: 2.1 m2 History: HTN,Smoker-Quit,SOB,Murmur,Morb id obesity Ordering Physician: Connor^Carlton^Mynor Referring Physician: Carlton Ryan Performed By: Rajani Donaldson, [facility] Interpretation Summary Ejection Fraction = 60-65%. [...] Doppler Measurements & Calculations MV E max murray: 73.7 cm/sec MV dec time: 0.31 sec Ao V2 max: 378.6 cm/sec AI max murray: 444.9 cm/sec MV A max murray: 97.3 cm/sec Ao max P.3 mmHg AI max P.2 mmHg MV E/A: 0.76 Ao V2 mean: 238.2 cm/sec AI dec slope: 168.5 cm/sec2 Lat Peak E' Murray: 3.3 cm/sec Ao mean P.6 mmHg AI P1/2t: 773.3 msec E/E' Lat: 22.6 Ao V2 VTI: 84.9 cm Med Peak E' Murray: 3.4 cm/sec ZACHARY(I,D): 1.1 cm2 E/E' Med: 21.9 ZACHARY(V,D): 1.1 cm2 LV V1 max P.5 mmHg SV(LVOT): 91.3 ml TR max murray: 314.9 cm/sec RAP systole: 3.0 mmHg LV [...] Carlton Ryan MD Transcribed by: SAPPHIRE Technologist: [facility] 07-05-2022 Hospital Discharg e instructions Follow Up Care 07/05/2022 09:28:33 With:Connor RAMSEY, Carlton Lowe Address: [address] [place] [address] [place] [address] [phone] When:6 months [facility] 07-01-2022 Evaluation + Plan note Future Scheduled TestsLipid Panel 07/01/22US LE Venous Duplex Insufficiency Bilat 08/19/22 [facility] 07-01-2022 Evaluation + Plan note Future Scheduled TestsLipid Panel 07/01/22 [facility] 10-01-2021 Evaluation note Encounter Date Diagnosis Assessment Notes Sep, Acute pain of left knee (ICD-10 - M25.562) Sep, Mass of left knee (ICD-10 - R22.42) Patient not having any issues at this time. She will contact office if any changes for MRI [facility] 04-25-2022 NoteCLINICAL DATA: Follow-up knee replacement. Progressive pain with weightbearing.[facility] 04-06-2022 NoteHISTORY: Bone density screening COMPARISON: [...] RECOMMENDED Report reported and signed by Carlton Vannesa on 09/13/2021 1135[facility] [id number] Evaluation note* Encounter Date Diagnosis Assessment Notes [...] sleepiness, or poor response to treatment. . [facility] Evaluation + Plan note Future Appointments Appointment Date:07/22/2022 09:00:00 AM Scheduled Provider:Nathan RAMSEY, Mara Wilson Location:[facility] Appointment Type:Vascular New Patient ([facility]) Future Scheduled Tests Laboratory* Lipid Panel 07/01/22 Radiology* EC Stress Echo Complete w/ Contrast 07/01/22 * Echo Transthoracic [facility] Future Appointments Appointment Date:08/14/2022 01:00:00 PM Scheduled Provider:Shira MCCURDY CNP Location:[facility]iology [facility] Appointment Type:Cardiology Follow Up ([facility]) Appointment Date:08/19/2022 11:30:00 AM Scheduled Provider:Mara Evans MD Location:[facility] Appointment Type:Vascular Follow Up ([facility]) Future Scheduled Tests Laboratory* Lipid Panel 07/01/22 [facility] - Reported* Type Description Date Medical History DM Medical History Depression/Anxiety Medical History HTN Medical History Cardiac Syndrome X Medical History KHANH Surgical History Left arm 2008 Surgical History Lap Cholecystectomy 2004 Surgical History 1980 Surgical History Bilateral tubal ligation 1980 Surgical History knee replacement, partial, righ t Mar 2015 Hospitalization History Heart Event 2011 Hospitalization History Bowel issues 1982 [facility] Hospital course Narrative No data available for this section [facility] No data available for this section [facility] No data available for this section [facility] Summary Purpose Family History No Family [...] section and content) DATE CREATED AUTHOR 12/12/2017 [facility] DATE CREATED AUTHOR AUTHOR'S ORGANIZ ATION 03/04/2020 [facility] DATE CREATED AUTHOR AUTHOR'S ORGANIZ ATION 10/05/2021 [facility] dical Specialist DATE CREATED AUTHOR AUTHOR'S ORGANIZ ATION 10/09/2021 [facility] DATE CREATED AUTHOR AUTHOR'S ORGANIZ ATION 10/16/[address] [facility] DATE CREATED AUTHOR AUTHOR'S ORGANIZ ATION 09/19/2023 [facility] DATE CREATED AUTHOR AUTHOR'S ORGANJESSY ATION 10/10/2023 [facility] DATE CREATED AUTHOR AUTHOR'S ORGANJESSY ATION 02/16/2024 [facility] dical Specialists EPIC REASON FOR VISIT (unrecogniz ed section and content) follow upLeft Knee Pain Patient Care team informatio n (unrecognized section and content) Personnel Name: SHIVA TURNER DO Address: Address: [address] [place] [address] Personnel Name: SHIVA TURNER DO Address: Address: [address] [place] [address] [address] Personnel Name: SHIVA TURNER DO Address: Address: [address] [place] [address] Personnel Name: SHIVA TURNER DO Address: Address: [address] [place] [address] Personnel Name: SHIVA TURNER DO Address: Address: [address] [place] [address] Personnel Name: SHIVA TURNER DO Address: Address: [address] [place] [address] FOR RECORDS PERTAINING TO PATIENTS WHO [...] BE BASED ON THE PRIMARY CLINICAL RECORDS. [facility] [employer] [facility]. provides no warranty or guarantee of the accuracy or completeness of information in this document.
--- NOTE | 2024-03-17 17:22 | ECG_ITS ---
[facility] Test Date: 2024-03-17 Pat Name: MARLON PASCAL Department: Room: - Gender: Female Supervisor Baking: : 1955 Requested By: Order Number: [id number] Reading MD: VENKATA VILLANUEVA Measurements Intervals Violet Rate: 89 P: 26 AZ: 178 QRS: 263 QRSD: 104 T: 45 QT: 368 QTc: 415 Interpretive Statements 1100 Sinus rhythm 2440 Incomplete right bundle branch block 3114 Cannot rule out anterior and inferior myocardial infarction, age undetermined [address] depression 5130 Right ventricular hypertrophy 9150 abnormal ECG No previous ECG available for comparison Electronically Signed On 03-17-2024 22:53:10 EDT by VENKATA VILLANUEVA
--- NOTE | 2024-03-17 17:23 | ED.GENADUL1 ---
HPI HPI - General Adult General Chief complaint: Nausea/Vomiting/Diarrhea Stated complaint: Diarrhea, Allergic Reaction Time Seen by Provider: 03/17/24 17:18 Source: patient Mode of arrival: walk-in Limitations: no limitations History of Present Illness HPI narrative: Patient is a 69-year-old female who presents to the emergency department for the evaluation of diarrhea over the last 3 days. She reports occasional vomiting. She reports epigastric abdominal pain. She believes that her symptoms are due to her recent injection of Mounjaro. She states last week she had a 2-day similar illness after using her injection. She has not had any fevers, upper respiratory symptoms. She denies urinary symptoms. No flank or back pain. She reports previous and tubal ligation, no other abdominal surgeries. No sick contacts in the home. She denies blood in her stool. She took Imodium prior to arrival. Related Data Previous Rx's ?Medication ?Instructions ?Recorded hyoscyamine sulfate 0.125 mg 0.125 mg PO Q6H PRN abdominal pain 03/17/24 tablet (Levsin) #12 tabs ondansetron 4 mg disintegrating 4 mg PO Q6H PRN nausea and 03/17/24 tablet vomiting #12 tabs pantoprazole 40 mg tablet,delayed 40 mg PO DAILY #7 tabs 03/17/24 release (Protonix) sucralfate 1 gram tablet (Carafate) 1 g PO Q6H PRN abdominal pain #12 03/17/24 tabs Allergies Allergy/AdvReac Type Severity Reaction Status Date / Time codeine AdvReac Mild Rash Verified 03/17/24 17:16 erythromycin base AdvReac Mild Rash Verified 03/17/24 17:26 [From E-Mycin] Penicillins AdvReac Mild Rash Verified 03/17/24 17:16 Sulfa (Sulfonamide AdvReac Mild Rash Verified 03/17/24 17:16 Antibiotics) Opioid HPI Opioid Management Most Recent Opioid Data: No Data to Display Review of Systems ROS Constitutional Denies: fever or chills Ears, nose, mouth, and throat Denies: throat pain or nasal congestion Cardiovascular Denies: chest pain Respiratory Denies: shortness of breath or cough Gastrointestinal Reports: abdominal pain, nausea, vomiting and diarrhea Musculoskeletal Denies: back pain or neck pain Integumentary/Breast Denies: rash Hematologic/Lymphatic Denies: easy bruising or easy bleeding PFSH PFSH Social History Little interest or pleasure in doing things: not at all Feeling down, depressed, or hopeless: not at all Exam Narrative Exam Narrative: Gen.: Awake, alert, in no distress Head: Normocephalic, atraumatic ENT: Moist mucous membranes Respiratory: No respiratory distress, lungs clear bilaterally Cardio: Regular rate and rhythm Gastrointestinal: Abdomen is soft, obese, diffusely tender to palpation across the upper abdomen with no guarding or rebound Extremities: Moves extremities equally Psych: Normal mood and affect Neuro: No focal neuro deficit Skin: Warm, dry, intact Constitutional Vital Signs, click to edit/add: Last Vital Signs Temp 98.1 F 03/17/24 17:17 Pulse 64 03/17/24 20:01 Resp 18 03/17/24 20:01 BP 153/79 H 03/17/24 20:01 Pulse Ox 95 03/17/24 20:01 O2 Del Method Room Air 03/17/24 17:17 Course Vital Signs Vital signs: Vital Signs Temperature 98.1 F 03/17/24 17:17 Pulse Rate 90 03/17/24 17:17 Respiratory Rate 18 03/17/24 17:17 Blood Pressure 151/81 H 03/17/24 17:17 Pulse Oximetry 94 L 03/17/24 17:17 Oxygen Delivery Method Room Air 03/17/24 17:17 Temperature 98.1 F 03/17/24 17:17 Pulse Rate 64 03/17/24 20:01 Respiratory Rate 18 03/17/24 20:01 Blood Pressure 153/79 H 03/17/24 20:01 Pulse Oximetry 95 03/17/24 20:01 Oxygen Delivery Method Room Air 03/17/24 17:17 Medical Decision Making MDM Narrative Medical decision making narrative: Patient was treated with IV fluids, Zofran, Levsin, Pepcid. The frequency of her diarrhea slowed while in the ER and she had improvement of abdominal pain, she did have to go to the bathroom multiple times, she states she is mostly just passing gas and occasionally dry heaving. Abdomen is soft and benign in the ER. Lab studies are grossly unremarkable. CT shows enteritis and esophagitis with no other acute process. Patient did provide a stool specimen and was negative for C. difficile, there was not enough stool to do a stool culture and the patient was encouraged to provide a stool specimen for culture. She will be treated for esophagitis and enteritis for home. No episodes of emesis in the ER. Remedicated with Zofran prior to discharge. Clear liquid diet encouraged. SUPERVISED APC VISIT, PHYSICIAN ATTESTATION: Based on the medical record the care appears appropriate. ? Medical Records Medical records reviewed: Yes I reviewed the patient's medical records Lab Data Lab results reviewed: Yes I reviewed the patient's lab results Labs: Lab Results 03/17/24 03/17/24 03/17/24 Range/Units 17:30 18:26 19:31 WBC 11.0 (4.0-11.0) 10^3/uL RBC 5.39 (4.20-5.40) 10^6/uL Hgb 15.0 (12.0-16.0) g/dL Hct 47.2 (36.0-48.0) % MCV 87.6 (81.0-99.0) fL MCH 27.8 (26.7-34.0) pg MCHC 31.8 (29.9-35.2) g/dL RDW 13.2 (11.0-15.0) % Plt Count 271 (150-450) 10^3/uL MPV 11.3 (9.5-13.5) fL Neut % (Auto) 61.2 (43.0-75.0) % Lymph % (Auto) 17.7 L (20.5-60.0) % [place] % (Auto) 12.3 H (1.7-12.0) % Eos % (Auto) 8.1 H (0.9-7.0) % Baso % (Auto) 0.2 (0.2-2.0) % Neut # (Auto) 6.7 H (1.4-6.5) 10^3/uL Lymph # (Auto) 2.0 (1.2-3.8) 10^3/uL [place] # (Auto) 1.4 H (0.3-0.8) 10^3/uL Eos # (Auto) 0.9 H (0.0-0.7) 10^3/uL Baso # (Auto) 0.0 (0.0-0.1) 10^3/uL Abs Immat Gran (auto) 0.05 H (0.00-0.03) 10^3/uL Imm/Tot Granulo (auto) 0.5 (0.0-0.5) % PT 11.1 (9.0-11.6) sec INR 1.05 Sodium 136 (136-145) mmol/L Potassium 3.4 L (3.5-5.1) mmol/L Chloride 102 (98-107) mmol/L Carbon Dioxide 23.6 (21.0-32.0) mmol/L Anion Gap 13.8 BUN 23.0 H (7.0-18.0) mg/dL Creatinine 0.86 (0.55-1.02) mg/dL Est GFR ( Amer) >60 (>=60 mL/min/1.73m^2) Est GFR (Non-Af Amer) >60 (>=60 mL/min/1.73m^2) BUN/Creatinine Ratio 26.7 Glucose 110 H (74-106) mg/dL Lactate 1.0 (0.4-2.0) mmol/L Calcium 9.1 (8.5-10.1) mg/dL Total Bilirubin 0.6 (0.2-1.0) mg/dL AST 20 (15-37) U/L ALT 24 (14-59) U/L Alkaline Phosphatase 80 (46-116) U/L Troponin I High Sens 8.4 (4.0-51.3) pg/mL Total Protein 8.4 H (6.4-8.2) g/dL Albumin 3.6 (3.4-5.0) g/dL Globulin 4.8 g/dL Albumin/Globulin Ratio 0.8 Lipase 25.0 (16.0-77.0) U/L Urine Color Lt. yellow (YELLOW) Urine Clarity Clear (CLEAR) Urine pH 5.5 (5.0-9.0) Ur Specific [place] 1.020 (1.005-1.025) Urine Protein Negative (NEG/TRACE) mg/dL Urine Glucose (UA) Negative (NEGATIVE) mg/dL Urine Ketones 15 A (NEGATIVE) mg/dL Urine Occult Blood Negative (NEGATIVE) Urine Nitrite Negative (NEGATIVE) Urine Bilirubin Negative (NEGATIVE) Urine Urobilinogen 0.2 (0.2-1.0) EU/dL Ur Leukocyte Esterase Negative (NEGATIVE) C. difficile Toxin PCR Negative (NEGATIVE) Imaging Data CT scan - abdomen: Attestation: I have reviewed the pertinent imaging results. Radiologist's impression: ITS Impressions Abdomen/Pelvis CT 03/17/24 18:58 IMPRESSION: 1. Fluid within the small bowel and colon suggestive of an enteritis. 2. Distal esophageal wall thickening suspicious for esophagitis and small hiatal hernia. Follow-up endoscopy may be considered. 3. Fatty liver. 4. Splenomegaly and indeterminate 8 mm hypodensity within the spleen, too small to characterize. 5. Small left renal hypodensity suggestive of a cyst but too small to characterize, an 8 mm left renal stone. 6. Colonic diverticulosis. 7. Mildly enlarged right external iliac lymph node which is nonspecific but may be reactive in nature. Electronically authenticated by: TI SALES Date: 03/17/2024 20:56 ECG Data Attestation: I personally reviewed and interpreted this ECG as follows: (Normal sinus rhythm at a rate of 89 with an incomplete right bundle branch block, no acute ST elevation. EKG reviewed by attending physician) Discharge Plan Discharge Chief Complaint: Nausea/Vomiting/Diarrhea Clinical Impression: Enteritis, Esophagitis, Vomiting and diarrhea Patient Disposition: Home, Self-Care Time of Disposition Decision: 20:51 Condition: Good Prescriptions / Home Meds: New sucralfate [Carafate] 1 gram tablet 1 g PO Q6H PRN (Reason: abdominal pain) Qty: 12 0RF pantoprazole [Protonix] 40 mg tablet,delayed release (DR/EC) 40 mg PO DAILY Qty: 7 0RF hyoscyamine sulfate [Levsin] 0.125 mg tablet 0.125 mg PO Q6H PRN (Reason: abdominal pain) Qty: 12 0RF ondansetron 4 mg tablet,disintegrating 4 mg PO Q6H PRN (Reason: nausea and vomiting) Qty: 12 0RF Print Language: Romanian Instructions: Acute Diarrhea (ED), Esophagitis (ED), Enteritis (ED) Referrals: SHIVA LACY [Primary Care Provider] - 1 week Discharge Date/Time: 03/17/24 21:40
[2024-03-17 17:49] LABS: Basophils Percent Auto 0.2 % (0.2-2.0); Eosinophils Absolute Auto 0.9 10^3/uL (0.0-0.7); Eosinophils Percent Auto 8.1 % (0.9-7.0); Hematocrit 47.2 % (36.0-48.0); Immature Granulocytes Abs Auto 0.05 10^3/uL (0.00-0.03); Immature Granulocytes Pct Auto 0.5 % (0.0-0.5); Lymphocytes Percent Auto 17.7 % (20.5-60.0); Mean Corpuscular HGB Conc 31.8 g/dL (29.9-35.2); Mean Corpuscular Hemoglobin 27.8 pg (26.7-34.0); Mean Corpuscular Volume 87.6 fL (81.0-99.0); Mean Platelet Volume 11.3 fL (9.5-13.5); Monocytes Absolute Auto 1.4 10^3/uL (0.3-0.8); Monocytes Percent Auto 12.3 % (1.7-12.0); Neutrophils Absolute Auto 6.7 10^3/uL (1.4-6.5); Neutrophils Percent Auto 61.2 % (43.0-75.0); Platelet Count 271 10^3/uL (150-450); Red Blood Count 5.39 10^6/uL (4.20-5.40); Red Cell Distribution Width 13.2 % (11.0-15.0)
[2024-03-17] MEDS: 0.9 % SODIUM CHLORIDE 1,000 ML 999 ML IV (17:50)
[2024-03-17] MEDS: HYOSCYAMINE SULFATE 0.125 MG TAB.SUBL SL (18:09)
[2024-03-17] MEDS: ONDANSETRON PF 4 MG/2 ML VIAL IV ×2 (18:09→21:20)
[2024-03-17] MEDS: FAMOTIDINE/PF 20 MG/2 ML VIAL IV (18:09)
[2024-03-17 18:14] LABS: Alanine Aminotransferase 24 U/L (14-59); Albumin Globulin Ratio 0.8; Albumin Level 3.6 g/dL (3.4-5.0); Alkaline Phosphatase 80 U/L (46-116); Anion Gap 13.8; Aspartate Amino Transferase 20 U/L (15-37); BUN Creatinine Ratio 26.7; Bilirubin Total 0.6 mg/dL (0.2-1.0); Calcium 9.1 mg/dL (8.5-10.1); Carbon Dioxide 23.6 mmol/L (21.0-32.0); Chloride 102 mmol/L (98-107); Estimated GFR (African America >60 (>=60 mL/min/1.73m^2); Estimated GFR (Non-African Ame >60 (>=60 mL/min/1.73m^2); Globulin 4.8 g/dL; Glucose 110 mg/dL (74-106); Potassium 3.4 mmol/L (3.5-5.1); Sodium 136 mmol/L (136-145); Total Protein 8.4 g/dL (6.4-8.2); Troponin I High Sensitivity 8.4 pg/mL (4.0-51.3)
[2024-03-17 18:24] LABS: INR 1.05; Prothrombin Time 11.1 sec (9.0-11.6)
--- NOTE | 2024-03-17 18:58 | CT_ITS ---
[address] [address] Patient Name: MARLON PASCAL MRN: [id number] date: 1955 Sex: F Assigned Patient Location: ER Current Patient Location: [facility] Accession/Order Number: [id number] Exam Date: 03/17/2024 18:52 Report Date: 03/17/2024 20:56 At the request of: BRANDT TOBIAS Procedure: CT abdomen pelvis w con CT ABDOMEN AND PELVIS WITH CONTRAST: INDICATION: Diarrhea, abdominal pain COMPARISON: None. TECHNIQUE: Helical CT images of the abdomen and pelvis were obtained after the administration of intravenous contrast. Dose reduction techniques were achieved by using automated exposure control and/or adjustment of mA and/or kV according to patient size and/or use of iterative reconstruction technique. FINDINGS: LOWER CHEST: Mild cardiomegaly. LIVER: Mild fatty infiltration. GALLBLADDER AND BILIARY SYSTEM: Status post cholecystectomy. SPLEEN: Enlarged at 13 cm in length. 8 mm hypodensity is also noted within the spleen, too small to characterize. PANCREAS: Normal. ADRENAL GLANDS: Normal. KIDNEYS AND URETERS: Normal right kidney. 8 mm nonobstructing stone in the lower pole of the left kidney. There is a 7 mm hypodensity in the left kidney suggestive of a cyst but too small to characterize. VASCULATURE: Normal. RETROPERITONEUM AND LYMPH NODES: There are several nonenlarged retroperitoneal lymph nodes. There is a enlarged right external iliac lymph node measuring 18 x 12 mm. GASTROINTESTINAL TRACT: Mild distal esophageal wall thickening which may be due to esophagitis and small hiatal hernia. Multiple diverticula in the sigmoid colon with no acute diverticulitis. Moderate fluid within the small bowel and extending into the ascending, transverse and descending colon. No significant bowel distention. The appendix is not visualized. MESENTERY/PERITONEUM: Normal. There is no free intraperitoneal air, or pneumatosis. BLADDER: Normal. REPRODUCTIVE SYSTEM: Normal uterus and adnexa. BODY WALL: Normal. BONES: Severe degenerative changes of the lower thoracic spine and moderate to severe multilevel degenerative changes of the lumbar spine. Grade 1 anterolisthesis at L5-S1 which is likely due to facet arthropathy. CT/CT abdomen pelvis w con IMPRESSION: 1. Fluid within the small bowel and colon suggestive of an enteritis. 2. Distal esophageal wall thickening suspicious for esophagitis and small hiatal hernia. Follow-up endoscopy may be considered. 3. Fatty liver. 4. Splenomegaly and indeterminate 8 mm hypodensity within the spleen, too small to characterize. 5. Small left renal hypodensity suggestive of a cyst but too small to characterize, an 8 mm left renal stone. 6. Colonic diverticulosis. 7. Mildly enlarged right external iliac lymph node which is nonspecific but may be reactive in nature. Electronically authenticated by: TI SALES Date: 03/17/2024 20:56
[2024-03-17 19:31] LABS: C. Difficile PCR NEGATIVE (NEGATIVE)
[2024-03-17 19:36] LABS: Bilirubin Urine NEGATIVE (NEGATIVE); Blood Urine NEGATIVE (NEGATIVE); Clarity Urine CLEAR (CLEAR); Color Urine LT. YELLOW (YELLOW); Glucose Urine UA NEGATIVE (NEGATIVE); Ketones Urine 15 mg/dL (NEGATIVE); Leukocyte Esterase Urine NEGATIVE (NEGATIVE); Nitrite Urine NEGATIVE (NEGATIVE); Protein Urine NEGATIVE (NEG/TRACE); Urobilinogen Urine 0.2 EU/dL (0.2-1.0); pH Urine 5.5 (5.0-9.0)
[2024-03-17 19:41] LABS: Urine Microscopic Indicated NO
== END 2024-03-17 21:40 | disposition home or self-care (01) ==
PROVIDERS: Physician Assistant; Emergency Provider Emergency Medicine; PCP Internal Medicine
DX: K52.9 Noninfective gastroenteritis and colitis, unspecified (principal); K20.90 Esophagitis, unspecified without bleeding; R11.10 Vomiting, unspecified; R10.9 Unspecified abdominal pain
CPT/HCPCS: 36415; 74177; 80053; 81003; 83605; 83690; 84484; 85025; 85610; 87045; 87046; 87177; 87209; 87427; 87493; 93005; 96361; 96374; 96375; 96376; 99285; J2405; Q9967